=== PATIENT | male | born 1995 | race African-American/Black ===

== ENCOUNTER 2021-04-28 19:03 | Emergency (ER) | payer SELFPAY ==
[~2021-04-28] VITALS: Ht 185.4 cm; Wt 152.0 kg
[2021-04-29 03:02] VITALS: BP 134/108
== END 2021-04-29 04:59 | disposition home or self-care (01) ==
LOC: ER 19:10
DX: L03.012 Cellulitis of left finger (principal); E66.9 Obesity, unspecified; Z68.41 Body mass index [BMI] 40.0-44.9, adult; Z88.6 Allergy status to analgesic agent
CPT/HCPCS: 10060

== ENCOUNTER 2024-04-20 11:55 | Inpatient (IN) | payer OTHER, MEDICAID ==
[~2024-04-20] VITALS: Ht 185.4 cm; Wt 156.0 kg
--- NOTE | 2024-04-20 12:17 | ED.PDOC ---
History of Present Illness HPI Comments 28Y M presents to ED for chief complaint flu-like symptoms x1week. Pt is experiencing weakness, body aches, poor appetite, and congestion. Pt denies SOB, chest pain, fever, and cough. Pt was dx with Influenza last week and is currently taking abx. Pt tested negative for COVID last week. Upon ED arrival, pt is tachycardic with HR 114. Chief Complaint: Flu like Time Seen by MD: 12:03 Primary Care Provider: NONE Reviewed Notes: Medications, Allergies Allergies: Coded Allergies: Codeine (Verified Allergy, Unknown, 04/28/21) Information Source: Patient Mode of Arrival: Ambulatory Severity: Mild Timing: Weeks Duration: Since onset Past Medical History PAST MEDICAL HISTORY: Denies Surgical History: Denies all surgeries Family History Family History: Reviewed,noncontributory to illness Social History Smoker: Non-Smoker Alcohol: Denies ETOH Use Drugs: Denies Drug Use Lives In: Home Constitutional: reports: weakness, others (body aches); denies: chills, diaphoresis, fatigue, fever, malaise, sweats EENTM: reports: nose congestion; denies: blurred vision, double vision, ear bleeding, ear discharge, ear drainage, ear pain, ear ringing, eye pain, eye redness, hearing loss, mouth pain, mouth swelling, nasal discharge, nose bleeding, nose pain, photophobia, tearing, throat pain, throat swelling, voice changes, others Respiratory: denies: cough, hemoptysis, orthopnea, SOB at rest, shortness of breath, SOB with excertion, stridor, wheezing, others Cardiovascular: denies: chest pain, dizzy spells, diaphoresis, Dyspnea on exer tion, edema, irregular heart beat, left arm pain, lightheadedness, palpitations, PND, syncope, others Gastrointestinal: reports: poor appetite; denies: abdomen distended, abdominal pain, blood streaked bowels, constipated, diarrhea, dysphagia, difficulty swallowing, hematemesis, melena, nausea, poor fluid intake, rectal bleeding, rectal pain, vomiting, others Genitourinary: denies: burning, dysuria, flank pain, frequency, hematuria, incontinence, penile discharge, penile sore, pain, testicle pain, testicle swelling, urgency, others Neurological: denies: dizziness, fainting, headache, left sided numbness, left sided weakness, numbness, paresthesia, pre-existing deficit, right sided numbness, right sided weakness, seizure, speech problems, tingling, tremors, weakness, others Musculoskeletal: denies: back pain, gout, joint pain, joint swelling, muscle pain, muscle stiffness, neck pain, others Integumetry: denies: bruises, change in color, change in hair/nails, dryness, laceration, lesions, lumps, rash, wounds, others Allergic/Immunocompromised: denies: Difficulty Healing, Frequent Infections, Hives, Itching, others Hematologic/Lymphatic: denies: anemia, blood clots, easy bleeding, easy bruising, swollen glands, others Endocrine: denies: excessive hunger, excessive sweating, excessive thirst, excessive urination, flushing, intolerance to cold, intolerance to heat, unexplained weight gain, unexplained weight loss, others Psychiatric: denies: anxiety, bipolar disorder, depression, hopeless, panic disorder, schizophrenia, sleepless, suicidal, others All Other Systems: Reviewed and Negative Physical Exam General Appearance: Moderate Distress, Normal HEENT: Normal ENT Inspection, Pharynx Normal, TMs Normal Neck: Full Range of Motion, Non-Tender, Normal, Normal Inspection Respiratory: Chest Non-Tender, Lungs Clear, No Accessory Muscle Use, No Respiratory Distress, Normal Breath Sounds Cardiovascular: No Edema, No JVD, No Murmur, No Gallop, Normal Peripheral Pulses, Regular Rate/Rhythm Breast Exam: Deferred Gastrointestinal: No Organomegaly, Non Tender, No Pulsatile Mass, Normal Bowel Sounds, Soft Genitalia: Deferred Pelvic: Deferred Rectal: Deferred Extremities: No calf tenderness, Normal capillary refill, Normal inspection, Normal range of motion, Non-tender, No pedal edema Musculoskeletal : Apperance: Normal Neurologic: Alert, director content marketing II-XII nml as Tested, No Motor Deficits, Normal Affect, Normal Mood, No Sensory Deficits Cerebellar Function: Normal Reflexes: Normal Skin: Dry, Normal Color, Warm Peripheral Pulses: 3+ Radial (R), 3+ Radial (L) Lymphatic: No Adenopathy Was a procedure done? Was a procedure done?: No Differential Dx Considerations may include: Influenza, URI X-Ray, Labs, Meds, VS Vital Signs Date Time Temp Pulse Resp B/P (MAP) Pulse Ox O2 Delivery O2 Flow Rate FiO2 04/20/24 16:19 96 Room Air* 0 21 04/20/24 14:10 97.8 106 16 131/90 (104) 97 97.8 04/20/24 14:10 106 16 97 Room Air 04/20/24 12:10 97.4 114 20 122/91 (101) 100 Lab Test 04/20/24 14:02 04/20/24 13:20 Range/Units Influenza Type A Antigen Negative Negative Influenza Type B Antigen Negative Negative White Blood Count 15.3 H 4.4-10.8 10^3/uL Red Blood Count 6.46 H 4.5-5.90 10^6/uL Hemoglobin 18.6 H 13.5-17.5 g/dL Hematocrit 55.1 H 41.0-53.0 % Mean Corpuscular Volume 85.3 80.0-100.0 fL Mean Corpuscular Hemoglobin 28.8 28.0-32.0 pg Mean Corpuscular Hemoglobin Concent 33.8 32.0-36.0 g/dL Red Cell Distribution Width 13.3 11.8-14.3 % Platelet Count 317 140-450 10^3/uL Mean Platelet Volume 9.3 6.9-10.8 fL Neutrophils (%) (Auto) 84.6 H 37.0-80.0 % Lymphocytes (%) (Auto) 7.4 L 10.0-50.0 % Monocytes (%) (Auto) 7.7 0.0-12.0 % Eosinophils (%) (Auto) 0.1 0.0-7.0 % Basophils (%) (Auto) 0.2 0.0-2.0 % Neutrophils # (Auto) 12.9 H 1.6-8.6 10 ^3/uL Lymphocytes # (Auto) 1.1 0.4-5.4 10 ^3/uL Monocytes # (Auto) 1.2 0-1.3 10 ^3/uL Eosinophils # (Auto) 0 0-0.8 10 ^3/uL Basophils # (Auto) 0 0-0.2 10 ^3/uL Nucleated Red Blood Cells 0.0 % D-Dimer, Quantitative 2.12 H 0.0-0.49 mg/L FEU Sodium Level 132 L 136-145 mmol/L Potassium Level 4.4 3.5-5.1 mmol/L Chloride Level 97 L 98-107 mmol/L Carbon Dioxide Level 13 L 20-31 mmol/L Anion Gap 22 H 5-15 Blood Urea Nitrogen 45 H 9-23 mg/dL Creatinine 5.99 H 0.700-1.30 mg/dL Glomerular Filtration Rate Calc 12 >90 mL/min BUN/Creatinine Ratio 7.5 L 10.0-20.0 Serum Glucose 120 H 74-106 mg/dL Calcium Level 6.2 L 8.7-10.4 mg/dL Current Medications Medications (Trade) Dose Ordered Sig/Drew Route Start Time Stop Time Status Last Admin Acetaminophen/ Hydrocodone Bitart (Sage 5/325MG Tab) 1 tab ONCE ONCE PO 04/20/24 14:15 04/20/24 14:16 DC 04/20/24 14:16 Enoxaparin Sodium (Lovenox) 150 mg ONCE ONCE SC 04/20/24 14:30 04/20/24 14:31 DC 04/20/24 14:30 Sodium Chloride 1,000 ml @ 1,000 mls/hr Q1H ONCE IV 04/20/24 15:30 04/20/24 16:29 DC 04/20/24 15:33 Sodium Chloride 1,000 ml @ 1,000 mls/hr Q1H ONCE IV 04/20/24 16:00 04/20/24 16:59 DC 04/20/24 16:06 [place] [id number] Ph: [phone] DIAGNOSTIC IMAGING Diagnostic Imaging Report : [id number] Signed PATIENT: ALBERT BOOKER ACCT: [id number] UNIT: [id number] : 1995 LOC: ER ROOM / BED: / AGE / SEX: 28 / M ADM STATUS: REG ER SERVICE 1206 ORDERING PHYSICIAN: JACE BARAHONA MD PROCEDURE(s): CXRP - CHEST PORTABLE REASON: sob ORDER NUMBER(s): [id number], ACCESSION NUMBER(s): [id number] CHEST RADIOGRAPH Indication: sob Technique: Single frontal view of the chest was obtained COMPARISON: None FINDINGS: Lines and Tubes: None Lungs: Clear Pleura: No effusion. No pneumothorax. Cardiomediastinal contours: Unremarkable Bones: Unremarkable IMPRESSION: No acute disease. ATED BY: PRADEEP SIMPSON MD DICTATED DATE/TIME: 04/20/24 1226 SIGNED BY: PRADEEP SIMPSON MD SIGNED DATE/TIME: 04/20/24 1226 CC: Patient alert. Complaining of cough. Currently on antibiotics. Tachycardia. No leg swelling. Saturation pristine on room air. Reviewed his previous visit. Elevated D-dimer. Chest x-ray reviewed does not show any acute changes. Was given Lovenox. Explained to the patient. Time of 1ST Reevaluation: 12:33 Reevaluation 1ST: Unchanged Patient Education/Counseling: Diagnosis, Treatment Family Education/Counseling: No Family Present Departure 1 Departure Time of Disposition: 12:23 Impression: Primary Impression: COPD (chronic obstructive pulmonary disease) Qualified Codes: J44.9 - Chronic obstructive pulmonary disease, unspecified Additional Impressions: Obesity Qualified Codes: E66.9 - Obesity, unspecified Elevated d-dimer Acute tubular necrosis Disposition: ADMITTED INPATIENT Admit to: Med Surg Condition: Guarded Critical Care Note Critical Care Time?: Yes (90 min-critical care time only) Stability Stability form required: No Heart Score Heart Score: Heart Score Response (Comments) Value History N/A 0 EKG N/A 0 Age N/A 0 Risk Factors N/A 0 Troponin N/A 0 Total 0 I personally scribed for JACE BARAHONA MD ([email or web address]) on 04/20/24 at 12:17. Electronically submitted by Francesca Cosby ([email or web address]). I personally scribed for JACE BARAHONA MD ([email or web address]) on 04/20/24 at 14:01. Electronically submitted by Francesca Cosby ([email or web address]). JACE BARAHONA MD Apr 20, 2024 12:17
--- NOTE | 2024-04-20 12:30 | DVH ---
CHEST RADIOGRAPH Indication: sob Technique: Single frontal view of the chest was obtained COMPARISON: None FINDINGS: Lines and Tubes: None Lungs: Clear Pleura: No effusion. No pneumothorax. Cardiomediastinal contours: Unremarkable Bones: Unremarkable IMPRESSION: No acute disease.
[2024-04-20] MEDS: HYDROcodone-ACET 5/325MG TAB PO ONE (14:16)
[2024-04-20] MEDS: ENOXAPARIN SOD 150 MG/1 ML SYRINGE SC ONE (14:30)
[2024-04-20 14:59] LABS: Potassium 4.4 mmol/L (3.5-5.1)
[2024-04-20 15:00] LABS: Anion Gap 22 (5-15)
[2024-04-20 15:05] LABS: BUN/Creatinine Ratio 7.5 (10.0-20.0)
[2024-04-20 15:12] LABS: Blood Urea Nitrogen 45 mg/dL (9-23); Calcium 6.2 mg/dL (8.7-10.4); Carbon Dioxide 13 mmol/L (20-31); Chloride 97 mmol/L (98-107); Glucose 120 mg/dL (74-106); Sodium 132 mmol/L (136-145)
[2024-04-20 15:15] LABS: Basophils # (auto) 0 10 ^3/uL (0-0.2); Basophils % (auto) 0.2 % (0.0-2.0); Eosinophils # (auto) 0 10 ^3/uL (0-0.8); Eosinophils % (auto) 0.1 % (0.0-7.0); Lymphocytes # (auto) 1.1 10 ^3/uL (0.4-5.4); Neutrophils # (auto) 12.9 10 ^3/uL (1.6-8.6)
[2024-04-20 15:16] LABS: Hematocrit 55.1 % (41.0-53.0); Hemoglobin 18.6 g/dL (13.5-17.5); Lymphocytes % (auto) 7.4 % (10.0-50.0); Mean Corpuscular Hemoglobin 28.8 pg (28.0-32.0); Mean Corpuscular Hgb Conc. 33.8 g/dL (32.0-36.0); Mean Corpuscular Volume 85.3 fL (80.0-100.0); Monocytes # (auto) 1.2 10 ^3/uL (0-1.3); Monocytes % (auto) 7.7 % (0.0-12.0); Neutrophils % (auto) 84.6 % (37.0-80.0); Platelet Count (auto) 317 10^3/uL (140-450); Red Blood Cells 6.46 10^6/uL (4.5-5.90); Red Cell Distribution Width 13.3 % (11.8-14.3); White Blood Cell 15.3 10^3/uL (4.4-10.8)
[2024-04-20] MEDS: SODIUM CHLORIDE 0.9% 1,000 ML IV ONE ×2 (15:33→16:06)
[2024-04-20 16:14] LABS: Rapid Influenza A Negative (Negative); Rapid Influenza B Negative (Negative)
[2024-04-20 16:19] VITALS: O2SAT 96
[2024-04-20] MEDS: ONDANSETRON HCL 4 MG/2 ML VIAL IV ONE (17:35)
[2024-04-20] MEDS: MORPHINE SULFATE INJ 2 MG/ml SYRG IV ONE (17:36)
[2024-04-20] MEDS: SODIUM CHLORIDE 0.9% 1,000 ML IV SCH (18:24)
--- NOTE | 2024-04-20 18:30 | DVHHPRES ---
History of Present Illness Resident Creating Document: FLORIAN DIAZ RESIDENT Reason for Visit: Generalized weakness and fatigue History of Present Illness This is a 28-year-old obese male patient no relevant past medical history presented to the ER with a chief complaint of generalized wea kness, fatigue and body aches for the past 1 week. He reports feeling feverish, productive cough with yellow sputum, body aches and weakness for the past 1 week for which he visited urgent care and was diagnosed with a strep throat and influenza infection. Patient received antibiotics and was taking them for the past couple of days, thinks it was amoxicillin but does not remember for sure. He says that he has been getting weak progressively associated with low appetite and generalized muscle ache for the past couple of days. Also reports abdominal heaviness. He says that his fever productive cough has been resolved. Patient's son was also diagnosed with strep throat infection recently. Patient denies chest pain, shortness of breaths, recent falls or blurry vision, nausea or vomiting, dysuria constipation or diarrhea. Past Medical History Unremarkable Family History Mom at the age of 49 - had cancer, details unknown. Mother also had CHF.. 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 ALCOHOL: occassional (Drinks socially) Drugs: None Lives: with Family (His and kids) Review of Systems Constitutional: Yes: Weakness, Malaise Eyes: Conjunctivae inflammation Gastrointestinal: Abdominal Pain Allergies: Coded Allergies: Codeine (Verified Allergy, Unknown, 04/28/21) Medications Current Medications Medications Dose Ordered Sig/Drew Route Start Time Stop Time Status Last Admin Dose Admin Sodium Chloride 1,000 ml @ 125 mls/hr Q8H IV 04/20/24 18:15 04/20/24 18:24 125 MLS/HR Exam Vital Signs Vital Signs Date Time Temp Pulse Resp B/P (MAP) Pulse Ox O2 Delivery O2 Flow Rate FiO2 04/20/24 18:07 95 23 102/56 04/20/24 17:35 98 04/20/24 16:19 Room Air* 0 21 04/20/24 14:10 97.8 97.8 Exam Morbidly obese male patient lying in bed, in no acute distress General: Obese, afebrile, palor, mucosae are moist, sclera injection seen. Tongue has white scrape able lesions. Pharynx is erythematous Cardiovascular: Regular S1 and S2. No murmurs, gallops or rubs. No JVD elevation. 1+ pitting edema in the lower extremities Respiratory: Normal B/L air entry on room air. Clear lung sounds on auscultation Abdomen: Soft, nontender, nondistended, normoactive bowel sounds, no rebound tenderness, no organomegaly, no masses Genitourinary: Deferred MSK/skin: Mobilizes 4 limbs. Skin is dry and warm Neurological: No motor, no sensitive deficits, normal speech. Pupils are isocoric and reactive. Psych/Mental Status: A/Ox4 Psych/Mental Status: Mental status NL, Mood NL Labs/Xrays Labs Test 04/20/24 18:11 04/20/24 14:02 04/20/24 13:20 Range/Units Influenza Type A Antigen Negative Negative Influenza Type B Antigen Negative Negative White Blood Count 15.3 H 4.4-10.8 10^3/uL Red Blood Count 6.46 H 4.5-5.90 10^6/uL Hemoglobin 18.6 H 13.5-17.5 g/dL Hematocrit 55.1 H 41.0-53.0 % Mean Corpuscular Volume 85.3 80.0-100.0 fL Mean Corpuscular Hemoglobin 28.8 28.0-32.0 pg Mean Corpuscular Hemoglobin Concent 33.8 32.0-36.0 g/dL Red Cell Distribution Width 13.3 11.8-14.3 % Platelet Count 317 140-450 10^3/uL Mean Platelet Volume 9.3 6.9-10.8 fL Neutrophils (%) (Auto) 84.6 H 37.0-80.0 % Lymphocytes (%) (Auto) 7.4 L 10.0-50.0 % Monocytes (%) (Auto) 7.7 0.0-12.0 % Eosinophils (%) (Auto) 0.1 0.0-7.0 % Basophils (%) (Auto) 0.2 0.0-2.0 % Neutrophils # (Auto) 12.9 H 1.6-8.6 10 ^3/uL Lymphocytes # (Auto) 1.1 0.4-5.4 10 ^3/uL Monocytes # (Auto) 1.2 0-1.3 10 ^3/uL Eosinophils # (Auto) 0 0-0.8 10 ^3/uL Basophils # (Auto) 0 0-0.2 10 ^3/uL Nucleated Red Blood Cells 0.0 % D-Dimer, Quantitative 2.12 H 0.0-0.49 mg/L FEU Assessment/Plan Assessment/Plan SIRS secondary to strep throat and influenza infection WBC elevated at 15 with neutrophilic predominance Pending blood culture, lactic acid, throat culture Pending COVID testing Started IV ceftriaxone and IV doxy 04/20 Started acetaminophen q.4 p.r.n. Prolonged QTc Avoid QTc prolonging agents HORACE, likely secondary to VMN IV NS 125 cc/hour Urine protein, creatinine pending Nephrology consulted Rule out PE/DVT V/Q scan and lower extremity Doppler 1 dose of Lovenox 150 mg sc administered by the ER Hyponatremia Serum Osmolality pending IV NS 125 cc/hour Hypocalcemia Serum albumin pending Plan discussed with patient in which all questions have been answered Goals of care have been discussed with the patient for more than 20 minutes, full code status Case discussed with Dr. Haas. Plan discussed with: Patient My Orders Orders - FLORIAN DIAZ RESIDENT Procedure Category Date Status Time PTPTT LAB 04/20/24 Logged 17:58 Hepatic Panel LAB 04/20/24 In Process 17:58 Magnesium LAB 04/20/24 In Process 17:58 Thyroid Stimulating LAB 04/20/24 In Process Hormone 17:58 Drug Screen LAB 04/20/24 Logged 17:58 Covid19 Antigen Dalila LAB 04/20/24 Logged Bilat Lower Dvt US 04/20/24 Logged 17:58 Sodium Chloride 0.9% PHA 04/20/24 In Process 18:15 Urinalysis LAB 04/20/24 Logged 18:03 Electrocardigram EKG 04/20/24 Logged 18:03 Troponin-I Hs LAB 04/20/24 In Process 18:03 B-Type Natriuretic LAB 04/20/24 In Process Peptide 18:03 Admit ADMIT 04/20/24 Transmitted 18:26 Sports Book Board Attendant For ALHAJI 04/20/24 Transmitted 24 Hours 18:26 Full Code ALHAJI 04/20/24 Transmitted 18:26 Code Status CODE 04/20/24 Verified 18:26 Clear Liq Diet DIET 04/20/24 Verified Dinner Tylenol 500mg PHA 04/20/24 Verified 18:30 [place] 5/325mg PHA 04/20/24 Verified 18:30 Morphine 1mg PHA 04/20/24 Verified 18:30 Date of Service: Apr 20, 2024 Billing Provider: SARAH HAAS MD Common Visit Codes: [id number] INP/OBS CARE (HIGH) JOERICKEYFLORIAN RESIDENT Apr 20, 2024 18:29 SARAH HAAS MD Apr 21, 2024 11:32
[2024-04-20 18:39] LABS: Chloride 99 mmol/L (98-107)
[2024-04-20 18:40] LABS: Anion Gap 18 (5-15)
--- NOTE | 2024-04-20 18:40 | ECG ---
[facility] Test Date: 2024-04-20 Test Time: 18:39:17 Pat Name: ALBERT BOOKER Department: ER Room: 0240T Gender: M [employer]: LUKE : 1995 Requested By: FLORIAN DIAZ Order Number: [id number] Reading MD: Gray Hare Measurements Intervals [place] Rate: 92 P: 36 [place]: 164 QRS: 14 QRSD: 106 T: 35 QT: 421 QTc: 521 Interpretive Statements Sinus rhythm Prolonged QT interval Electronically Signed On 04-21-2024 14:20:14 PST by Gray Hare Please click the below link to view image of tracing.
[2024-04-20 18:49] LABS: Albumin 4.6 g/dL (3.2-4.8); Bilirubin, Direct 0.2 mg/dL (<0.3); Bilirubin, Total 0.3 mg/dL (0.2-1.0); Total Protein 7.3 g/dL (5.7-8.2)
[2024-04-20 18:54] LABS: Blood Urea Nitrogen 48 mg/dL (9-23); Carbon Dioxide 15 mmol/L (20-31); Glucose 109 mg/dL (74-106); Sodium 132 mmol/L (136-145)
[2024-04-20 19:05] LABS: Magnesium 2.9 mg/dL (1.6-2.6)
[2024-04-20 19:13] LABS: COVID19 ANTIGEN SOFIA FIA NEGATIVE (NEGATIVE)
[2024-04-20 19:14] LABS: INR 1.04 (0.9-1.15); Partial Thromboplastin Time 27.8 SEC (24.5-34.5)
[2024-04-20] MEDS ORDERED: AZITHROMYCIN 500MG/ 250ML 250 ML IV SCH (19:15)
[2024-04-20 19:16] LABS: Calcium 5.8 mg/dL (8.7-10.4)
--- NOTE | 2024-04-20 19:19 | DVH ---
Procedure: US BiLat Lower DVT Study Date and Requested Time: 04/20/2024 06:44 PM History: dvt Comparison: None Technique: Multiple high resolution stoddard-scale images with and without compression obtained of the bi lateral lower extremity veins, including the common femoral vein, deep femoral vein, proximal mid and distal superficial femoral vein, and popliteal vein. Additional limited images of the greater saphen ous vein also obtained. Augmentation performed as indicated. Color and spectral doppler flow images o btained as indicated. Findings: No visible intraluminal venous thrombus. No evidence of incompressibility or abnormal color or spectr al Doppler flow visualized in the bilateral lower extremity veins including, the common femoral vein, deep femoral vein, proximal mid and distal superficial femoral vein, and popliteal vein. Greater sap henous vein grossly unremarkable. Impression: No sonographic evidence of bilateral lower extremity deep venous thrombosis.
[2024-04-20 19:45] VITALS: PULSE 90; RESP 90; O2SAT 94
[2024-04-20] MEDS: DOXYCYCLINE 100MG/250ML 250 ML IV SCH (20:00)
[2024-04-20] MEDS: MORPHINE SULFATE INJ 2 MG/ml SYRG IV PRN (20:45)
[2024-04-20 22:24] LABS: Rapid Strep A Screen-Throat Positive
[2024-04-21] VITALS (13 sets, daily range): BP systolic 120–147; BP diastolic 59–89; PULSE 81–96; RESP 16–20; TEMP 97.4–98.6; O2SAT 93–98
[2024-04-21] MEDS: HYDROcodone-ACET 5/325MG TAB PO PRN (04:10)
[2024-04-21 06:25] LABS: Basophils # (auto) 0 10 ^3/uL (0-0.2); Basophils % (auto) 0.2 % (0.0-2.0); Eosinophils # (auto) 0 10 ^3/uL (0-0.8); Eosinophils % (auto) 0.1 % (0.0-7.0); Hematocrit 49.3 % (41.0-53.0); Hemoglobin 16.8 g/dL (13.5-17.5); Lymphocytes # (auto) 0.9 10 ^3/uL (0.4-5.4); Mean Corpuscular Hemoglobin 29.1 pg (28.0-32.0); Mean Corpuscular Volume 85.7 fL (80.0-100.0); Monocytes # (auto) 1.6 10 ^3/uL (0-1.3); Monocytes % (auto) 9.3 % (0.0-12.0); Neutrophils # (auto) 15.1 10 ^3/uL (1.6-8.6); Neutrophils % (auto) 85.4 % (37.0-80.0); Platelet Count (auto) 282 10^3/uL (140-450); Red Blood Cells 5.76 10^6/uL (4.5-5.90); Red Cell Distribution Width 13.5 % (11.8-14.3); White Blood Cell 17.6 10^3/uL (4.4-10.8)
[2024-04-21 06:35] LABS: Anion Gap 19 (5-15)
[2024-04-21 06:41] LABS: BUN/Creatinine Ratio 8.4 (10.0-20.0); Glucose 103 mg/dL (74-106)
[2024-04-21 06:50] LABS: Blood Urea Nitrogen 61 mg/dL (9-23); Carbon Dioxide 15 mmol/L (20-31); Chloride 96 mmol/L (98-107); Sodium 130 mmol/L (136-145)
[2024-04-21 06:55] LABS: Calcium 5.5 mg/dL (8.7-10.4); Potassium 5.6 mmol/L (3.5-5.1)
[2024-04-21] MEDS ORDERED: ALBUTEROL SULF 2.5 MG/0.5ML(0.5%) NEB SOLN NEB ONE (08:30)
[2024-04-21] MEDS: cefTRIAXone 1GM/50ML D5W 50 ML IV SCH (08:31)
[2024-04-21] MEDS: ALBUTEROL SULF 2.5 MG/0.5ML(0.5%) NEB SOLN NEB ONE (09:10)
[2024-04-21] MEDS: InsuLIN REG 1unit/0.01ml Soln (100units/ml) IV ONE (09:29)
[2024-04-21] MEDS: SODIUM ZIRCONIUM CYCL 10 GM PAK PO ONE (09:30)
[2024-04-21] MEDS: DEXTROSE (50%) 50ML SYRG IV ONE (09:35)
[2024-04-21] MEDS: CALCIUM GLUC 1,000mg/50ml-NS 50 ML IV SCH (09:50)
--- NOTE | 2024-04-21 09:59 | DVHINCON2 ---
Date of service: Apr 21, [address] Hill Reason for Consultation Acute kidney injury History of Present Illness Patient is a 28-year-old morbidly obese male with no significant past medical history is admitted for generalized weakness poor appetite and flu-like symptoms with sore throat for two weeks. On admission patient found to have elevated BUN creatinine nephrology is consulted Past Medical History Patient denies Past Surgical History Patient denies Allergies: Coded Allergies: Codeine (Verified Allergy, Unknown, 04/28/21) Home Meds No Active Prescriptions or Reported Meds Current Medications Current Medications Medications (Trade) Dose Ordered Sig/Drew Route PRN Reason Start Time Stop Time Status Last Admin Sodium Chloride 1,000 ml @ 125 mls/hr Q8H IV 04/20/24 18:15 04/21/24 09:54 DC 04/20/24 18:24 Acetaminophen (Tylenol Tablet Or Capsule) 500 mg Q4HPRN PRN PO MILD PAIN (1-3 PAIN SCALE) 04/20/24 18:30 Acetaminophen/ Hydrocodone Bitart ([place] 5/325MG Tab) 1 tab Q6HPRN PRN PO MODERATE PAIN (4-6 PAIN SCALE) 04/20/24 18:30 04/21/24 04:10 Morphine Sulfate 1 mg Q4HPRN PRN IV SEVERE PAIN (7-10 PAIN SCALE) 04/20/24 18:30 04/21/24 01:09 Ceftriaxone Sodium 50 ml @ 100 mls/hr DAILY@09 IV 04/21/24 09:00 04/21/24 08:31 Azithromycin 250 ml @ 125 mls/hr DAILY IV 04/20/24 19:15 04/20/24 19:29 DC Doxycycline Hyclate 250 ml @ 125 mls/hr Q12H IV 04/20/24 19:30 04/21/24 07:03 Calcium Gluconate/ Sodium Chloride 50 ml @ 100 mls/hr Q30M IV 04/21/24 08:15 04/21/24 09:14 DC 04/21/24 10:44 Sodium Bicarbonate 50 ml/ Sodium Chloride 1,050 ml @ 150 mls/hr Q7H IV 04/21/24 10:00 Calcium Acetate (Phoslo Capsule) 2,001 mg TIDWMEALS PO 04/21/24 12:00 Review of Systems All 12 item review of systems reviewed with the patient nonsignificant except what is mentioned in the history of present illness H&P Exam Vital Signs/I&O Vital Sign Date Time Temp Pulse Resp B/P (MAP) Pulse Ox O2 Delivery O2 Flow Rate FiO2 04/21/24 09:25 86 16 97 04/21/24 09:10 Room Air* 0 21 04/21/24 09:00 98.2 143/59 (87) 98.2 Intake and Output 04/20/24 04/21/24 19:00 07:00 Intake Total 2000 ml 1250 ml Balance 2000 ml 1250 ml Intake Oral 0 ml IV Total 2000 ml 1250 ml Physical Exam Obese male lying comfortably in bed appeared in no acute distress Lungs clear to auscultation bilaterally Cardiac exam regular rate and rhythm GI soft nontender was normal Extremities no clubbing cyanosis or edema Neuro nonfocal Labs/Diagnostic Data Labs/Diagnostic Data Laboratory Tests Test 04/21/24 09:35 04/21/24 05:56 04/20/24 22:00 04/20/24 20:18 Range/Units Urine Color Yellow Yellow Urine Clarity Turbid H Clear Urine pH 5.5 5.0-9.0 Urine Specific Marshall 1.022 1.001-1.035 Urine Protein 2+ H Negative Urine Ketones Negative Negative Urine Blood 3+ H Negative /uL Urine Nitrite Negative Negative Urine Bilirubin Negative Negative Urine Urobilinogen Normal Negative mg/dL Urine Leukocyte Esterase Trace Negative /uL Urine RBC 2 0 - 3 /hpf Urine WBC 56 0 - 3 /hpf Urine Squamous Epithelial Cells Few <5 /hpf Urine Bacteria Few H None Seen /hpf Urine Sodium 39 L 40-220 mmol/L Urine Glucose 1+ H Normal mg/dL Urine Opiates Screen Neg NEGATIVE Urine Fentanyl Screen Neg NEGATIVE Urine Barbiturates Screen Neg NEGATIVE Urine Phencyclidine Screen Neg NEGATIVE Urine Amphetamines Screen Neg NEGATIVE Urine Benzodiazepines Screen Neg NEGATIVE Urine Cocaine Screen Neg NEGATIVE Urine Cannabinoids Screen Neg NEGATIVE White Blood Count 17.6 H 4.4-10.8 10^3/uL Red Blood Count 5.76 4.5-5.90 10^6/uL Hemoglobin 16.8 13.5-17.5 g/dL Hematocrit 49.3 # 41.0-53.0 % Mean Corpuscular Volume 85.7 80.0-100.0 fL Mean Corpuscular Hemoglobin 29.1 28.0-32.0 pg Mean Corpuscular Hemoglobin Concent 34.0 32.0-36.0 g/dL Red Cell Distribution Width 13.5 11.8-14.3 % Platelet Count 282 140-450 10^3/uL Mean Platelet Volume 9.1 6.9-10.8 fL Neutrophils (%) (Auto) 85.4 H 37.0-80.0 % Lymphocytes (%) (Auto) 5.0 L 10.0-50.0 % Monocytes (%) (Auto) 9.3 0.0-12.0 % Eosinophils (%) (Auto) 0.1 0.0-7.0 % Basophils (%) (Auto) 0.2 0.0-2.0 % Neutrophils # (Auto) 15.1 H 1.6-8.6 10 ^3/uL Lymphocytes # (Auto) 0.9 0.4-5.4 10 ^3/uL Monocytes # (Auto) 1.6 H 0-1.3 10 ^3/uL Eosinophils # (Auto) 0 0-0.8 10 ^3/uL Basophils # (Auto) 0 0-0.2 10 ^3/uL Nucleated Red Blood Cells 0.0 % Sodium Level 130 L 136-145 mmol/L Potassium Level 5.6 *H 3.5-5.1 mmol/L Chloride Level 96 L 98-107 mmol/L Carbon Dioxide Level 15 L 20-31 mmol/L Anion Gap 19 H 5-15 Blood Urea Nitrogen 61 #H 9-23 mg/dL Creatinine 7.26 H 0.700-1.30 mg/dL Glomerular Filtration Rate Calc 10 >90 mL/min BUN/Creatinine Ratio 8.4 L 10.0-20.0 Serum Glucose 103 74-106 mg/dL Calcium Level 5.5 *L 8.7-10.4 mg/dL Phosphorus Level 14.8 H 2.4-5.1 mg/dL Magnesium Level 2.8 H 1.6-2.6 mg/dL Group A Streptococcus Rapid Positive Serum Osmolality 295 278-298 mOsm/kg Acetaminophen Level < 2.0 L 10.0-20.0 UG/ML Plasma/Serum Blood Alcohol 3.4 <10 mg/dL Test 04/20/24 19:10 04/20/24 18:33 04/20/24 18:32 04/20/24 18:11 Range/Units Hemoglobin A1c 5.7 <5.7 % A1C Prothrombin Time 11.0 9.3-11.8 sec Prothrombin Time INR 1.04 0.9-1.15 Activated Partial Thromboplast Time 27.8 24.5-34.5 SEC SARS-CoV-2 Antigen (Rapid) Negative NEGATIVE Sodium Level 132 L 136-145 mmol/L Potassium Level 5.0 3.5-5.1 mmol/L Chloride Level 99 98-107 mmol/L Carbon Dioxide Level 15 L 20-31 mmol/L Anion Gap 18 H 5-15 Blood Urea Nitrogen 48 H 9-23 mg/dL Creatinine 5.98 H 0.700-1.30 mg/dL Glomerular Filtration Rate Calc 12 >90 mL/min BUN/Creatinine Ratio 8.0 L 10.0-20.0 Serum Glucose 109 H 74-106 mg/dL Lactic Acid Level 1.6 0.4-2.0 mmol/L Calcium Level 5.8 *L 8.7-10.4 mg/dL Magnesium Level 2.9 H 1.6-2.6 mg/dL Total Bilirubin 0.3 0.2-1.0 mg/dL Direct Bilirubin 0.2 <0.3 mg/dL Aspartate Amino Transferase (AST) 3536 H 13-40 U/L Alanine Aminotransferase (ALT) 730 H 7-40 U/L Alkaline Phosphatase 69 46-116 U/L Troponin I High Sensitivity 28 </=54 ng/L Total Protein 7.3 5.7-8.2 g/dL Albumin 4.6 3.2-4.8 g/dL Thyroid Stimulating Hormone (TSH) 1.19 0.55-4.78 uIU/mL Test 04/20/24 14:02 04/20/24 13:20 Range/Units Influenza Type A Antigen Negative Negative Influenza Type B Antigen Negative Negative White Blood Count 15.3 H 4.4-10.8 10^3/uL Red Blood Count 6.46 H 4.5-5.90 10^6/uL Hemoglobin 18.6 H 13.5-17.5 g/dL Hematocrit 55.1 H 41.0-53.0 % Mean Corpuscular Volume 85.3 80.0-100.0 fL Mean Corpuscular Hemoglobin 28.8 28.0-32.0 pg Mean Corpuscular Hemoglobin Concent 33.8 32.0-36.0 g/dL Red Cell Distribution Width 13.3 11.8-14.3 % Platelet Count 317 140-450 10^3/uL Mean Platelet Volume 9.3 6.9-10.8 fL Neutrophils (%) (Auto) 84.6 H 37.0-80.0 % Lymphocytes (%) (Auto) 7.4 L 10.0-50.0 % Monocytes (%) (Auto) 7.7 0.0-12.0 % Eosinophils (%) (Auto) 0.1 0.0-7.0 % Basophils (%) (Auto) 0.2 0.0-2.0 % Neutrophils # (Auto) 12.9 H 1.6-8.6 10 ^3/uL Lymphocytes # (Auto) 1.1 0.4-5.4 10 ^3/uL Monocytes # (Auto) 1.2 0-1.3 10 ^3/uL Eosinophils # (Auto) 0 0-0.8 10 ^3/uL Basophils # (Auto) 0 0-0.2 10 ^3/uL Nucleated Red Blood Cells 0.0 % D-Dimer, Quantitative 2.12 H 0.0-0.49 mg/L FEU Sodium Level 132 L 136-145 mmol/L Potassium Level 4.4 3.5-5.1 mmol/L Chloride Level 97 L 98-107 mmol/L Carbon Dioxide Level 13 L 20-31 mmol/L Anion Gap 22 H 5-15 Blood Urea Nitrogen 45 H 9-23 mg/dL Creatinine 5.99 H 0.700-1.30 mg/dL Glomerular Filtration Rate Calc 12 >90 mL/min BUN/Creatinine Ratio 7.5 L 10.0-20.0 Serum Glucose 120 H 74-106 mg/dL Calcium Level 6.2 L 8.7-10.4 mg/dL B-Type Natriuretic Peptide 0.44 0-100 pg/mL Assessment Acute kidney injury likely secondary to postinfectious GN Strep pharyngitis Hyperkalemia Metabolic acidosis Hypocalcemia Recommendations Closely monitor fluid and electrolytes Avoid nephrotoxic medications Strict I&Os Check urinalysis urine electrolytes and urine protein excretion Check kidney ultrasound Check serologies for strep,C3-C4 hep B hep C and RPR Radiology consult for Kidney biopsy Check phosphorus, 25 hydroxyvitamin D and PTH IV fluids with a bicarb Start calcium acetate 2001 mg p.o. TIDWM Renal diet Medical treatment for hyperkalemia Follow-up in my office two weeks after the kidney biopsy for result We will continue to follow Patient seen and examined by mysel. I discussed my plan of care with the patient, , father and primary nurse at the bedside I would like to thank Dr. Hill for the consult, will follow up Plan discussed with: Patient CHRIS JACOBSEN MD Apr 21, 2024 09:59
[2024-04-21 10:07] LABS: Hepatitis B Core Total AB Negative (Negative)
--- NOTE | 2024-04-21 10:38 | DVH ---
RENAL ULTRASOUND CLINICAL HISTORY: gabriela TECHNIQUE: Multiple ultrasound images of the kidneys and bladder were obtained. COMPARISON: None FINDINGS: The right kidney measures 13.5 cm in length. The left kidney measures 12 cm. The kidneys demonstrate appropriate echotexture without evidence of a discrete renal lesion, nephrolithiasis or hydronephrosi s. Bladder appears within normal limits with volume measuring 234 cc. IMPRESSION: 1. Unremarkable renal ultrasound. HS:Y
[2024-04-21 10:44] LABS: Sodium Urine 39 mmol/L (40-220)
[2024-04-21 10:47] LABS: Magnesium 2.8 mg/dL (1.6-2.6)
[2024-04-21 10:51] LABS: Opiate Scree,Urine Neg (NEGATIVE); Urine Bacteria FEW /hpf (None Seen); Urine Blood 3+ /uL (Negative); Urine Clarity Turbid (Clear); Urine Protein, UAD 2+ (Negative); Urine Specific Gravity 1.022 (1.001-1.035); Urine Squamous Epithelial Cell FEW /hpf (<5); Urine Urobilinogen Normal (Negative); Urine WBC 56 /hpf (0 - 3); Urine pH 5.5 (5.0-9.0)
[2024-04-21 10:52] LABS: Amphetamine Screen, Urine Neg (NEGATIVE); Barbiturate Scree,Urine Neg (NEGATIVE); Benzodiazephine Screen, Urine Neg (NEGATIVE); Cannabinoid Screen, Urine Neg (NEGATIVE); Cocaine Screen, Urine Neg (NEGATIVE); Phencyclidine Screen, Urine Neg (NEGATIVE)
[2024-04-21 10:54] LABS: Urine Color Yellow (Yellow)
[2024-04-21] MEDS ORDERED: SODIUM BICARB 50mEq/50ml Vial 50 ML in SOD CHL 0.45% 1,000 ML IV SCH (11:00)
[2024-04-21 11:08] LABS: Creatinine, Urine 318.19 mg/dL (30.0-125.0); Protein, Urine 844.9 mg/dL (1-14)
[2024-04-21 11:23] LABS: Hepatitis B Surface Antigen Negative (Negative); Hepatitis C Antibody Negative (Negative)
[2024-04-21] MEDS: SODIUM BICARB 50mEq/50ml Vial 50 ML in SOD CHL 0.45% 1,000 ML IV SCH (11:30)
[2024-04-21 11:32] LABS: Potassium 4.8 mmol/L (3.5-5.1)
[2024-04-21 11:43] LABS: Calcium 5.7 mg/dL (8.7-10.4)
[2024-04-21 12:10] LABS: Hepatitis A Ab IgM Negative; Hepatitis A Total Antibody Positive (Negative); Hepatitis B Core IgM Negative (Negative); Hepatitis B Surface Antibody Positive (Negative)
[2024-04-21 12:11] LABS: Hepatitis B Surface Antigen Negative (Negative); Hepatitis C Antibody Negative (Negative)
[2024-04-21] MEDS: CALCIUM ACETATE 667 MG CAP PO SCH (12:37)
[2024-04-21 13:41] LABS: Potassium 5.1 mmol/L (3.5-5.1)
[2024-04-21 13:43] LABS: Calcium 5.3 mg/dL (8.7-10.4)
[2024-04-21 13:48] LABS: Creatine Kinase IFCC > 7800 U/L (46-171)
--- NOTE | 2024-04-21 15:12 | DVH ---
NUCLEAR MEDICINE VENTILATION/PERFUSION LUNG SCAN. INDICATION: POSSIBLE PE COMPARISON: None TECHNIQUE: Following intravenous demonstration of 6.2 millicuries of technetium 99m MAA, and inhala tion of 4 mCi of Xe 133 scintigrams were obtained in multiple projections of the lungs. FINDINGS: There is normal uptake of radionuclide on both the ventilation and perfusion portions of the examinat ion. No mismatched perfusion defects are demonstrated. Uptake is normally homogeneous. IMPRESSION: Low probability for PE.
[2024-04-21] MEDS: ONDANSETRON HCL 4 MG/2 ML VIAL IV PRN (15:21)
[2024-04-21 16:05] LABS: Rapid Strep A Screen-Throat Positive
[2024-04-21 17:44] LABS: Potassium 5.3 mmol/L (3.5-5.1)
[2024-04-21 17:46] LABS: Calcium 5.6 mg/dL (8.7-10.4)
--- NOTE | 2024-04-21 19:30 | DVHPNRES ---
Progress Note Date Seen: Apr 21, 2024 Resident Creating Document: FLORIAN DIAZ RESIDENT Medical Necessity Reason Pt with a Central, PICC or Fol: Yes The following are medically ne: Lopez Catheter Reason for lopez catheter: Strict I&O Subjective Review of Systems This is a 28-year-old obese male patient no relevant past medical history presented to the ER with a chief complaint of generalized weakness, fatigue and body aches for the past 1 week. He reports feeling feverish, productive cough with yellow sputum, body aches and weakness for the past 1 week for which he visited urgent care and was diagnosed with a strep throat and influenza infection. Patient received antibiotics and was taking them for the past couple of days, thinks it was amoxicillin but does not remember for sure. He says that he has been getting weak progressively associated with low appetite and generalized muscle ache for the past couple of days. Also reports abdominal heaviness. He says that his fever productive cough has been resolved. Patient's son was also diagnosed with strep throat infection recently. Patient denies chest pain, shortness of breaths, recent falls or blurry vision, nausea or vomiting, dysuria constipation or diarrhea. Past medical history: Unremarkable Family history:Mom at the age of 49 - had cancer, details unknown. Mother also had CHF.. Social history: Lives with and son, uses cigar occasionally, denies smoking. Drinks socially. 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 Patient seen and examined at the bedside. Reports no shortness of breath, chest pain or palpitations. Telemetry reviewed, shows intermittent tachycardia which is sinus and rate is up to 150s to 170s beats per minute. 2 g IV calcium administered given the hyperkalemia with EKG changes of peaked T-waves. Nephrology consulted Objective vital signs Vital Sign Date Time Temp Pulse Resp B/P (MAP) Pulse Ox O2 Delivery O2 Flow Rate FiO2 04/21/24 17:00 98.6 91 20 129/78 (95) 98 98.6 04/21/24 09:10 Room Air* 0 21 Total Intake and Output 04/20/24 04/20/24 04/21/24 15:00 23:00 07:00 Intake Total 2750 ml 500 ml Balance 2750 ml 500 ml medications Current Medications Medications Dose Ordered Sig/Drew Route Start Time Stop Time Status Last Admin Dose Admin Acetaminophen 500 mg Q4HPRN PRN PO 04/20/24 18:30 Acetaminophen/ Hydrocodone Bitart 1 tab Q6HPRN PRN PO 04/20/24 18:30 04/21/24 13:57 1 TAB Morphine Sulfate 1 mg Q4HPRN PRN IV 04/20/24 18:30 04/21/24 01:09 1 MG Ceftriaxone Sodium 50 ml @ 100 mls/hr DAILY@09 IV 04/21/24 09:00 04/21/24 08:31 100 MLS/HR Doxycycline Hyclate 250 ml @ 125 mls/hr Q12H IV 04/20/24 19:30 04/21/24 07:03 125 MLS/HR Sodium Bicarbonate 50 ml/ Sodium Chloride 1,050 ml @ 150 mls/hr Q7H IV 04/21/24 10:00 Calcium Acetate 2,001 mg TIDWMEALS PO 04/21/24 12:00 04/21/24 12:37 2,001 MG Ondansetron HCl 4 mg Q4HPRN PRN IV 04/21/24 14:15 04/21/24 15:21 4 MG Examination Morbidly obese male patient lying in bed, in no acute distress General: Obese, afebrile, palor, mucosae are moist, sclera injection seen. T ongue has white scrape able lesions. Pharynx is erythematous Cardiovascular: Regular S1 and S2. No murmurs, gallops or rubs. No JVD elevation. 1+ pitting edema in the lower extremities Respiratory: Normal B/L air entry on room air. Clear lung sounds on auscultation Abdomen: Soft, nontender, nondistended, normoactive bowel sounds, no rebound tenderness, no organomegaly, no masses Genitourinary: Deferred MSK/skin: Mobilizes 4 limbs. Skin is dry and warm Neurological: No motor, no sensitive deficits, normal speech. Pupils are isocoric and reactive. Psych/Mental Status: A/Ox4 laboratory and microbiology Laboratory Tests 04/21/24 17:09 04/21/24 05:56 Test 04/21/24 05:56 Range/Units Serum Glucose 103 74-106 mg/dL Labs and/or images reviewed: Labs reviewed by me, Image(s) reviewed by me Problem List/Assessment/Plan Problem List/Assessment/Plan SIRS secondary to strep throat and influenza infection Strep pharyngitis WBC elevated at 15 with neutrophilic predominance Pending blood culture, lactic acid, throat culture Positive rapid strep throat Started IV ceftriaxone and IV doxy 04/20 Started acetaminophen q.4 p.r.n. WBC trending up to 17 Prolonged QTc secondary to hypocalcemia Avoid QTc prolonging agents Anion gap Metabolic acidosis HORACE, likely secondary to rhabdomyolysis versus PSGN Secondary hyper parathyroidism Vitamin-D deficiency Symptomatic Hypocalcemia and hyperphosphatemia Hyponatremia Elevated AST/ALT due to rhabdomyolysis IV NS 125 cc/hour Urine protein, creatinine pending Nephrology consulted - RENAL BIOPSY 04/22. NPO STARTING MIDNIGHT. Started calcium acetate 2001 mg PO TID CK greater than 7800 Renal ultrasound unremarkable C3, C4, RPR pending Hepatitis-B and C negative Urine protein/creatinine ratio 2.5 Sodium bicarbonate 150 mL/hour UA shows 3+ blood and only 2 RBCs Generalized weakness due to Hyperkalemia with EKG changes 2 g IV calcium administered 04/21 along with insulin, dextrose, Lokelma Potassium improved to 4.8 Rule out PE/DVT V/Q scan shows low probability for PE Lower extremity Doppler is negative 1 dose of Lovenox 150 mg sc administered by the ER morbid obesity Diet renal Plan discussed with patient in which all questions have been answered Goals of care have been discussed with the patient for more than 20 minutes, full code status critical care time 41 mins Case discussed with Dr. Fuller renal biopsy tomorrow. NPO starting midnight. Plan discussed with: Patient, Spouse (At the bedside) My Orders My Orders Orders - FLORIAN DIAZ Procedure Category Date Status Time Doxycycline PHA 04/20/24 In Process 100mg/250ml 19:30 Strict I & O ALHAJI 04/21/24 In Process 08:35 Communication Order ORDERS 04/21/24 Transmitted 08:35 Ondansetron Hcl PHA 04/21/24 In Process (Zofran) 14:15 Date of Service: Apr 21, 2024 Billing Provider: GEM FULLER MD Common Visit Codes: 75808-[facility] C[facility] 30-74 MIN FLORIAN DIAZ Apr 21, 2024 19:30 GEM FULLER MD Apr 22, 2024 15:00
[2024-04-21] MEDS: ERGOCALCIFEROL 50,000 UNIT(1.25MG) CAP PO SCH (20:58)
[2024-04-22] VITALS (21 sets, daily range): BP systolic 104–155; BP diastolic 54–89; PULSE 77–107; RESP 16–27; TEMP 97.1–98.9; O2SAT 91–98
[2024-04-22] MEDS: SODIUM BICARB 8.4% 50Meq/50ml SYR Vial IV ONE ×2 (00:46→22:21)
[2024-04-22 06:42] LABS: Basophils # (auto) 0 10 ^3/uL (0-0.2); Basophils % (auto) 0.2 % (0.0-2.0); Eosinophils # (auto) 0 10 ^3/uL (0-0.8); Eosinophils % (auto) 0.1 % (0.0-7.0); Hematocrit 49.4 % (41.0-53.0); Hemoglobin 16.9 g/dL (13.5-17.5); Lymphocytes # (auto) 0.8 10 ^3/uL (0.4-5.4); Lymphocytes % (auto) 4.7 % (10.0-50.0); Mean Corpuscular Hemoglobin 29.3 pg (28.0-32.0); Mean Corpuscular Hgb Conc. 34.1 g/dL (32.0-36.0); Monocytes # (auto) 1.4 10 ^3/uL (0-1.3); Monocytes % (auto) 8.5 % (0.0-12.0); Neutrophils # (auto) 14.1 10 ^3/uL (1.6-8.6); Neutrophils % (auto) 86.5 % (37.0-80.0); Platelet Count (auto) 297 10^3/uL (140-450); Red Blood Cells 5.74 10^6/uL (4.5-5.90); Red Cell Distribution Width 13.7 % (11.8-14.3); White Blood Cell 16.3 10^3/uL (4.4-10.8)
[2024-04-22 06:59] LABS: Albumin 4.3 g/dL (3.2-4.8); Alkaline Phosphatase 61 U/L (46-116); Anion Gap 20 (5-15); BUN/Creatinine Ratio 8.7 (10.0-20.0); Bilirubin, Total 0.4 mg/dL (0.2-1.0); Glucose 96 mg/dL (74-106); Total Protein 7.1 g/dL (5.7-8.2)
[2024-04-22] MEDS: fentaNYL CITRATE 100 MCG/2 ML VL IV ONE (07:15)
[2024-04-22] MEDS: MIDAZOLAM HCL 2MG/2ML 2ml VIAL (1mg/ml) IV ONE (07:15)
[2024-04-22 07:19] LABS: Carbon Dioxide 14 mmol/L (20-31); Chloride 93 mmol/L (98-107); Sodium 127 mmol/L (136-145)
[2024-04-22 07:20] LABS: Alanine Aminotransferase 841 U/L (7-40); Aspartate Aminotransferase 3367 U/L (13-40); Phosphorus 17.3 mg/dL (2.4-5.1)
[2024-04-22 07:24] LABS: Blood Urea Nitrogen 86 mg/dL (9-23); Calcium 5.3 mg/dL (8.7-10.4); Potassium 6.4 mmol/L (3.5-5.1)
[2024-04-22 08:06] LABS: Complement C3 178 mg/dL (82-167); RPR Non Reactive (Non Reactive)
[2024-04-22] MEDS: ALBUTEROL SULF 2.5 MG/0.5ML(0.5%) NEB SOLN NEB ONE ×2 (08:59→09:14)
[2024-04-22] MEDS: DEXTROSE (50%) 50ML SYRG IV ONE ×2 (10:24→19:24)
[2024-04-22] MEDS: InsuLIN REG 1unit/0.01ml Soln (100units/ml) IV ONE ×2 (10:31→19:25)
[2024-04-22 13:06] LABS: Anti-Nuclear Antibody Direct Negative (Negative)
[2024-04-22] MEDS: SODIUM BICARB 8.4% 50Meq/50ml SYR INJ IV ONE (14:49)
[2024-04-22] MEDS: SODIUM ZIRCONIUM CYCL 10 GM PAK PO ONE (14:52)
--- NOTE | 2024-04-22 15:34 | DVH ---
CHEST RADIOGRAPH Indication: RENAL FAILURE Technique: Single frontal view of the chest was obtained COMPARISON: XY CHEST PORTABLE on DOS: 04/20/24 FINDINGS: Lines and Tubes: None Lungs: Clear Pleura: No effusion. No pneumothorax. Cardiomediastinal contours: Unremarkable Bones: Unremarkable IMPRESSION: 1. No acute disease.
[2024-04-22] MEDS: CALCIUM GLUC 1,000mg/50ml-NS 50 ML IV SCH (16:00)
[2024-04-22] MEDS: ONDANSETRON HCL 4 MG/2 ML VIAL IV ONE (17:29)
[2024-04-22] MEDS: MORPHINE SULFATE INJ 2 MG/ml SYRG IV ONE (17:30)
[2024-04-22] MEDS: LORazepam 2MG/ML-1ML VIAL IV ONE (17:36)
[2024-04-22 18:21] LABS: Anion Gap 20 (5-15)
--- NOTE | 2024-04-22 18:24 | DVH ---
EXAM: XR Chest, 1 View CLINICAL INDICATION: dialysis catheter insertion TECHNIQUE: Frontal view of the chest. COMPARISON: XY CHEST PORTABLE on DOS: 04/22/24, XY CHEST PORTABLE on DOS: 04/20/24 FINDINGS: LUNGS AND PLEURAL SPACES: See below. HEART: Cardiomegaly with mild congestion. MEDIASTINUM: Unremarkable. Normal mediastinal contour. BONES/JOINTS: Unremarkable. No acute fracture. TUBES, LINES AND DEVICES: Right internal jugular central venous catheter tip in the superior vena ca va. OTHER FINDINGS: . . . . IMPRESSION: Cardiomegaly with mild congestion. HS:Y
[2024-04-22 18:26] LABS: Glucose 104 mg/dL (74-106)
[2024-04-22 18:30] LABS: Carbon Dioxide 14 mmol/L (20-31); Chloride 93 mmol/L (98-107); Sodium 127 mmol/L (136-145)
[2024-04-22 18:39] LABS: Blood Urea Nitrogen 97 mg/dL (9-23); Calcium 4.8 mg/dL (8.7-10.4); Potassium 6.9 mmol/L (3.5-5.1)
[2024-04-22] MEDS: SODIUM CHL 0.9% 1000 ML BAG XX ONE (19:00)
--- NOTE | 2024-04-22 19:13 | DVHNC2 ---
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 (Aakash Davila np) Indication: Other (Hemodialysis) Room prepared for procedure: Yes Call Specialist performed hand hygien: Yes Maximal sterile barrier precau: Mask/Eye shield, Sterile gown, Cap, Sterlie gloves, Large sterlie drape Skin Preparation: Chlorhexidine gluconate Skin preparation completely dr: Yes Insertion site: Right, Internal jugular Central line catheter type: Dialysis non-tunneled Number of lumens: 2 Central line exchanged over a: No Antiseptic ointment applied to: No Post Assessment: Chest X-Ray, Proper placement, No Pneumothorax Informed consent obtained: Yes Risks/benefits/alt described: Yes Notes Estimated blood loss: 5 mL Ultrasound guidance used: CPT code: 36586 Date of Service: Apr 22, 2024 Billing Provider: NEO DAVILA NP Common Visit Codes: PROCEDURE ONLY Procedure Codes: [id number] NON-TUNNEL CV CATH NEO DAVILA NP Apr 22, 2024 19:13
[2024-04-22] MEDS: BUMETANIDE 2.5mg/10ml (0.25 mg/ml) INJ IV ONE (19:25)
--- NOTE | 2024-04-22 19:47 | DVHPN2 ---
Progress Note - Dictate Date Seen: Apr 22, 2024 Medical Necessity Reason Pt with a Central, PICC or Fol: Yes The following are medically ne: Lopez Catheter Reason for lopez catheter: Strict I&O Subjective Patient awake and responsive, coherent to understand and consent to his need for requiring dialysis therapy. vital signs Vital Sign Date Time Temp Pulse Resp B/P (MAP) Pulse Ox O2 Delivery O2 Flow Rate FiO2 04/22/24 17:48 89 16 130/57 04/22/24 17:00 98.1 97 98.1 04/22/24 08:59 Room Air* 0 21 Total Intake and Output 04/21/24 04/21/24 04/22/24 15:00 23:00 07:00 Intake Total 1065 ml 720 ml 0 ml Output Total 200 ml 100 ml Balance 1065 ml 520 ml -100 ml medications Current Medications Medications Dose Ordered Sig/Drew Route Start Time Stop Time Status Last Admin Dose Admin Acetaminophen 500 mg Q4HPRN PRN PO 04/20/24 18:30 Acetaminophen/ Hydrocodone Bitart 1 tab Q6HPRN PRN PO 04/20/24 18:30 04/21/24 21:50 1 TAB Morphine Sulfate 1 mg Q4HPRN PRN IV 04/20/24 18:30 04/22/24 13:21 1 MG Ceftriaxone Sodium 50 ml @ 100 mls/hr DAILY@09 IV 04/21/24 09:00 04/22/24 10:43 100 MLS/HR Sodium Bicarbonate 50 ml/ Sodium Chloride 1,050 ml @ 150 mls/hr Q7H IV 04/21/24 10:00 04/22/24 10:59 150 MLS/HR Calcium Acetate 2,001 mg TIDWMEALS PO 04/21/24 12:00 04/22/24 13:21 2,001 MG Ondansetron HCl 4 mg Q4HPRN PRN IV 04/21/24 14:15 04/22/24 01:15 4 MG objective gen: nad lungs: coarse bs cvs: no rub ext: no edema laboratory and microbiology Laboratory Tests 04/22/24 18:04 04/22/24 06:23 Test 04/22/24 18:04 Range/Units Serum Glucose 104 74-106 mg/dL Assessment/Plan Acute kidney injury likely secondary to postinfectious GN Strep pharyngitis Hyperkalemia Metabolic acidosis Hypocalcemia Recommendations - initiation of kidney replacement in setting of fulminant HORACE - will check uric acid, given extremely high phosphorus level and elevated CK consideration for rhabdo/ pigment nephropathy is additional potential Etiology for HORACE - IV calcium during dialysis - repeat bmp in AM Plan discussed with: Patient GAYLE BURTON MD Apr 22, 2024 19:47
--- NOTE | 2024-04-22 20:27 | DVHPNRES ---
Progress Note Date Seen: Apr 22, 2024 Resident Creating Document: FLORIAN DIAZ RESIDENT Medical Necessity Reason Pt with a Central, PICC or Fol: Yes The following are medically ne: Lopez Catheter Reason for lopez catheter: Strict I&O Subjective Review of Systems This is a 28-year-old obese male patient no relevant past medical history presented to the ER with a chief complaint of generalized weakness, fatigue and body aches for the past 1 week. He reports feeling feverish, productive cough with yellow sputum, body aches and weakness for the past 1 week for which he visited urgent care and was diagnosed with a strep throat and influenza infection. Patient received antibiotics and was taking them for the past couple of days, thinks it was amoxicillin but does not remember for sure. He says that he has been getting weak progressively associated with low appetite and generalized muscle ache for the past couple of days. Also reports abdominal heaviness. He says that his fever productive cough has been resolved. Patient's son was also diagnosed with strep throat infection recently. Patient denies chest pain, shortness of breaths, recent falls or blurry vision, nausea or vomiting, dysuria constipation or diarrhea. Past medical history: Unremarkable Family history:Mom at the age of 49 - had cancer, details unknown. Mother also had CHF.. Social history: Lives with and son, uses cigar occasionally, denies smoking. Drinks socially. 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 04/21 - Patient seen and examined at the bedside. Reports no shortness of breath, chest pain or palpitations. Telemetry reviewed, shows intermittent tachycardia which is sinus and rate is up to 150s to 170s beats per minute. 2 g IV calcium administered given the hyperkalemia with EKG changes of peaked T- waves. Nephrology consulted 04/22 - patient seen and examined at bedside. Reports generalized weakness, urine output decreased. Patient is oliguric, making 10 mL of dark urine. Patient received dextrose with insulin, Lokelma in the a.m.. Repeat potassium 5.6. Nephrology recommended dialysis. Patient undergone hemodialysis today. Dialysis catheter inserted. Patient transferred to [facility]/ICU. Renal biopsy was 04/25. WBC 16. Chest x-ray shows increased pulmonary vascular congestion. Objective vital signs Vital Sign Date Time Temp Pulse Resp B/P (MAP) Pulse Ox O2 Delivery O2 Flow Rate FiO2 04/22/24 17:48 89 16 130/57 04/22/24 17:00 98.1 97 98.1 04/22/24 08:59 Room Air* 0 21 Total Intake and Output 04/21/24 04/21/24 04/22/24 15:00 23:00 07:00 Intake Total 1065 ml 720 ml 0 ml Output Total 200 ml 100 ml Balance 1065 ml 520 ml -100 ml medications Current Medications Medications Dose Ordered Sig/Drew Route Start Time Stop Time Status Last Admin Dose Admin Acetaminophen 500 mg Q4HPRN PRN PO 04/20/24 18:30 Acetaminophen/ Hydrocodone Bitart 1 tab Q6HPRN PRN PO 04/20/24 18:30 04/21/24 21:50 1 TAB Morphine Sulfate 1 mg Q4HPRN PRN IV 04/20/24 18:30 04/22/24 13:21 1 MG Ceftriaxone Sodium 50 ml @ 100 mls/hr DAILY@09 IV 04/21/24 09:00 04/22/24 10:43 100 MLS/HR Sodium Bicarbonate 50 ml/ Sodium Chloride 1,050 ml @ 150 mls/hr Q7H IV 04/21/24 10:00 04/22/24 10:59 150 MLS/HR Calcium Acetate 2,001 mg TIDWMEALS PO 04/21/24 12:00 04/22/24 13:21 2,001 MG Ondansetron HCl 4 mg Q4HPRN PRN IV 04/21/24 14:15 04/22/24 01:15 4 MG Examination Morbidly obese male patient lying in bed, in no acute distress General: Obese, afebrile, palor, mucosae are moist, sclera injection seen. T ongue has white scrape able lesions. Pharynx is erythematous Cardiovascular: Regular S1 and S2. No murmurs, gallops or rubs. No JVD elevation. 1+ pitting edema in the lower extremities Respiratory: Normal B/L air entry on room air. Clear lung sounds on auscultation Abdomen: Soft, nontender, nondistended, normoactive bowel sounds, no rebound tenderness, no organomegaly, no masses Genitourinary: Deferred MSK/skin: Mobilizes 4 limbs. Skin is dry and warm Neurological: No motor, no sensitive deficits, normal speech. Pupils are isocoric and reactive. Psych/Mental Status: A/Ox4 laboratory and microbiology Laboratory Tests 04/22/24 18:04 04/22/24 06:23 Test 04/22/24 18:04 Range/Units Serum Glucose 104 74-106 mg/dL Microbiology Date/Time Source Procedure Growth Status 04/20/24 19:10 Blood Blood Culture - Preliminary NO GROWTH AFTER 48 HOURS OF INCUBATION. Resulted Labs and/or images reviewed: Labs reviewed by me, Image(s) reviewed by me Problem List/Assessment/Plan Problem List/Assessment/Plan SIRS secondary to strep throat/rhabdomyolysis and influenza infection Strep pharyngitis WBC elevated at 15 with neutrophilic predominance Pending blood culture, lactic acid, throat culture Positive rapid strep throat Started IV ceftriaxone 04/20 Started acetaminophen q.4 p.r.n. WBC trending up to 17 Prolonged QTc secondary to hypocalcemia Avoid QTc prolonging agents Anion gap Metabolic acidosis Acute renal failure, likely secondary to rhabdomyolysis versus PSGN Secondary hyper parathyroidism Vitamin-D deficiency Symptomatic Hypocalcemia and hyperphosphatemia Hyponatremia Elevated AST/ALT due to rhabdomyolysis IV NS 125 cc/hour Urine protein, creatinine pending Nephrology consulted - RENAL BIOPSY 04/25. NPO STARTING MIDNIGHT 04/25. Started calcium acetate 2001 mg PO TID 04/21 Nephrology started hemodialysis 04/22 CK greater than 7800 Renal ultrasound unremarkable C3, C4, RPR pending Hepatitis-B and C negative Urine protein/creatinine ratio 2.5 Sodium bicarbonate 150 mL/hour UA shows 3+ blood and only 2 RBCs Generalized weakness due to Hyperkalemia with EKG changes 2 g IV calcium administered 04/21 along with insulin, dextrose, Lokelma Potassium improved to 4.8 Rule out PE/DVT V/Q scan shows low probability for PE Lower extremity Doppler is negative 1 dose of Lovenox 150 mg sc administered by the ER Diet renal Lopez placed 04/22. Patient underwent hemodialysis Plan discussed with patient in which all questions have been answered Goals of care have been discussed with the patient for more than 20 minutes, full code status critical care time excluding procedures was 41 mins Case discussed with Dr. Fuller. Patient transferred to ICU. Plan discussed with: Patient, Spouse (At bedside) My Orders My Orders Orders - FLORIAN DIAZ RESIDENT Procedure Category Date Status Time Electrocardigram EKG 04/22/24 Logged 07:57 Renal DIET 04/22/24 Transmitted Standard(2gna,3gk,Lopho) Lunch Date of Service: Apr 22, 2024 Billing Provider: GEM FULLER MD Common Visit Codes: [id number] CARE 30-74 MIN FLORIAN DIAZ Apr 22, 2024 20:27 GEM FULLER MD Apr 24, 2024 12:39
[2024-04-23] VITALS (96 sets, daily range): BP systolic 119–181; BP diastolic 60–116; PULSE 72–196; RESP 8–26; TEMP 97.9–98.9; O2SAT 82–99
[2024-04-23 03:52] LABS: Basophils # (auto) 0 10 ^3/uL (0-0.2); Basophils % (auto) 0.2 % (0.0-2.0); Eosinophils # (auto) 0 10 ^3/uL (0-0.8); Eosinophils % (auto) 0.2 % (0.0-7.0); Hematocrit 41.5 % (41.0-53.0); Hemoglobin 14.3 g/dL (13.5-17.5); Lymphocytes % (auto) 7.7 % (10.0-50.0); Mean Corpuscular Hgb Conc. 34.6 g/dL (32.0-36.0); Mean Corpuscular Volume 83.8 fL (80.0-100.0); Monocytes # (auto) 1.3 10 ^3/uL (0-1.3); Monocytes % (auto) 10.1 % (0.0-12.0); Neutrophils # (auto) 10.5 10 ^3/uL (1.6-8.6); Neutrophils % (auto) 81.8 % (37.0-80.0); Platelet Count (auto) 259 10^3/uL (140-450); Red Blood Cells 4.95 10^6/uL (4.5-5.90); Red Cell Distribution Width 13.5 % (11.8-14.3); White Blood Cell 12.8 10^3/uL (4.4-10.8)
[2024-04-23 04:10] LABS: Anion Gap 17 (5-15); Carbon Dioxide 21 mmol/L (20-31)
[2024-04-23 04:15] LABS: BUN/Creatinine Ratio 8.6 (10.0-20.0); Glucose 89 mg/dL (74-106)
[2024-04-23 04:51] LABS: Chloride 94 mmol/L (98-107); Potassium 5.3 mmol/L (3.5-5.1); Sodium 132 mmol/L (136-145)
[2024-04-23 04:54] LABS: Blood Urea Nitrogen 85 mg/dL (9-23); Calcium 5.4 mg/dL (8.7-10.4)
[2024-04-23] MEDS: SODIUM BICARB 8.4% 50Meq/50ml SYR Vial IV ONE (06:04)
[2024-04-23] MEDS: SODIUM CHL 0.9% 1000 ML BAG XX ONE (07:00)
[2024-04-23 07:17] LABS: Creatine Kinase IFCC > 7800 U/L (46-171)
[2024-04-23 08:28] LABS: Uric Acid 15.9 mg/dL (3.7-9.2)
--- NOTE | 2024-04-23 09:46 | DVHPN2 ---
Subjective Patient denies any symptoms at this time other than generalized weakness and leg pain Reviewed: Care Plan, H&P, Labs Changes from previous H/P or p: No Changes Eyes: Conjunctivae inflammation Gastrointestinal: Abdominal Pain Objective Vitals Vital Signs Date Time Temp Pulse Resp B/P (MAP) Pulse Ox O2 Delivery O2 Flow Rate FiO2 04/23/24 06:45 85 17 94 04/23/24 04:00 97.9 97.9 04/22/24 23:09 Room Air 0.0 04/22/24 20:00 21 Intake/Output Intake and Output 04/23/24 07:00 Intake Total 1950 ml Output Total 150 ml Balance 1800 ml Intake Oral 300 ml IV Total 1650 ml Output Urine Total 150 ml General Appearance: Alert, Oriented X3, Cooperative, mild distress HEENT: Atraumatic, PERRLA Lungs: Clear to auscultation, Normal air movement, Other (Nasal cannula at 2 liters/minute) Cardiovascular: Normal S1, Normal S2 Medications Current Medications Medications Dose Ordered Sig/Drew Route Start Time Stop Time Status Last Admin Dose Admin Acetaminophen 500 mg Q4HPRN PRN PO 04/20/24 18:30 Acetaminophen/ Hydrocodone Bitart 1 tab Q6HPRN PRN PO 04/20/24 18:30 04/23/24 09:00 1 TAB Morphine Sulfate 1 mg Q4HPRN PRN IV 04/20/24 18:30 04/23/24 05:32 1 MG Ceftriaxone Sodium 50 ml @ 100 mls/hr DAILY@09 IV 04/21/24 09:00 04/23/24 08:59 100 MLS/HR Sodium Bicarbonate 50 ml/ Sodium Chloride 1,050 ml @ 150 mls/hr Q7H IV 04/21/24 10:00 04/23/24 06:30 150 MLS/HR Calcium Acetate 2,001 mg TIDWMEALS PO 04/21/24 12:00 04/23/24 09:00 2,001 MG Ondansetron HCl 4 mg Q4HPRN PRN IV 04/21/24 14:15 04/22/24 01:15 4 MG Laboratory Results Laboratory Tests 04/23/24 03:26 Chemistry Test 04/22/24 18:04 04/23/24 03:26 Calcium Level 4.8 mg/dL (8.7-10.4) *L 5.4 mg/dL (8.7-10.4) *L Urinalysis Test 04/21/24 09:35 Urine Color Yellow (Yellow) Urine Clarity Turbid (Clear) H Urine pH 5.5 (5.0-9.0) Urine Specific [place] 1.022 (1.001-1.035) Urine Protein 2+ (Negative) H Urine Ketones Negative (Negative) Urine Blood 3+ /uL (Negative) H Urine Nitrite Negative (Negative) Urine Bilirubin Negative (Negative) Urine Urobilinogen Normal mg/dL (Negative) Urine Leukocyte Esterase Trace /uL (Negative) Urine RBC 2 /hpf (0 - 3) Urine WBC 56 /hpf (0 - 3) Urine Squamous Epithelial Cells Few /hpf (<5) Urine Bacteria Few /hpf (None Seen) H Urine Creatinine 318.19 mg/dL (30.0-125.0) H Urine Sodium 39 mmol/L (40-220) L Urine Glucose 1+ mg/dL (Normal) H Urine Total Protein 844.9 mg/dL (1-14) H Microbiology Microbiology Date/Time Source Procedure Growth Status 04/20/24 19:10 Blood Blood Culture - Preliminary NO GROWTH AFTER 48 HOURS OF INCUBATION. 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 -plans for kidney biopsy on 04/25 Critical care time spent with patient discussing and formulating plan of care: 40 minutes. This does not include time spent performing procedures. This medical document was created using an electronic medical record system with [employer] system. Although this document has been carefully reviewed, there may still be some phonetic and typographical errors. These areas are purely typographical due to imperfections of the software programs, and do not reflect any compromise in the patient's medical care. Plan discussed with: Patient, Spouse, Other (RN) My Orders Orders - SALBINO,LARSON ACTIVITIES ASSISTANT Procedure Category Date Status Time Communication Order ORDERS 04/22/24 Transmitted 17:33 Us Guided Vascular US 04/22/24 Logged Access 17:33 Chest Portable XY 04/22/24 Resulted 17:42 Date of Service: Apr 23, 2024 Billing Provider: NEO DAVILA NP Common Visit Codes: [id number] CARE 30-74 MIN NEO DAVILA NP Apr 23, 2024 09:46
--- NOTE | 2024-04-23 19:55 | DVHPN2 ---
Progress Note - Dictate Date Seen: Apr 23, 2024 Medical Necessity Reason Pt with a Central, PICC or Fol: Yes The following are medically ne: Lopez Catheter Reason for lopez catheter: Strict I&O Subjective patient more awake, patient's at bedside.. Tolerated his second dialysis well this morning. vital signs Vital Sign Date Time Temp Pulse Resp B/P (MAP) Pulse Ox O2 Delivery O2 Flow Rate FiO2 04/23/24 19:15 92 17 135/80 (98) 99 04/23/24 08:00 Nasal Cannula* 2 04/23/24 04:00 97.9 97.9 Total Intake and Output 04/22/24 04/22/24 04/23/24 15:00 23:00 07:00 Intake Total 300 ml 450 ml 1200 ml Output Total 150 ml Balance 300 ml 300 ml 1200 ml medications Current Medications Medications Dose Ordered Sig/Drew Route Start Time Stop Time Status Last Admin Dose Admin Acetaminophen 500 mg Q4HPRN PRN PO 04/20/24 18:30 Acetaminophen/ Hydrocodone Bitart 1 tab Q6HPRN PRN PO 04/20/24 18:30 04/23/24 09:00 1 TAB Morphine Sulfate 1 mg Q4HPRN PRN IV 04/20/24 18:30 04/23/24 05:32 1 MG Ceftriaxone Sodium 50 ml @ 100 mls/hr DAILY@09 IV 04/21/24 09:00 04/23/24 08:59 100 MLS/HR Sodium Bicarbonate 50 ml/ Sodium Chloride 1,050 ml @ 150 mls/hr Q7H IV 04/21/24 10:00 04/23/24 14:03 150 MLS/HR Calcium Acetate 2,001 mg TIDWMEALS PO 04/21/24 12:00 04/23/24 18:23 2,001 MG Ondansetron HCl 4 mg Q4HPRN PRN IV 04/21/24 14:15 04/22/24 01:15 4 MG objective gen: nad lungs: coarse bs cvs: no rub ext: no edema laboratory and microbiology Laboratory Tests 04/23/24 03:26 Test 04/23/24 03:26 Range/Units Serum Glucose 89 74-106 mg/dL Assessment/Plan Acute kidney injury likely secondary to postinfectious GN +/- pigment nephropathy Strep pharyngitis Hyperkalemia Metabolic acidosis Hypocalcemia Rhabdomyolysis Recommendations - bmp in AM - Daily evaluation for Kidney replacement therapy - discussed plan of care from nephrology perspective with patient and his spouse Plan discussed with: Patient, Spouse GAYLE BURTON MD Apr 23, 2024 19:55
--- NOTE | 2024-04-23 23:08 | DVHINCON2 ---
Date of service: Apr 23, 2024 Referring Physician Clifton Hill MD Reason for Consultation Acute hypoxic respiratory failure History of Present Illness A 28-year-old obese man with no significant past medical history who presented to the ER on 04/20/24 with c/o generalized weakness, fatigue and body aches for the past 1 week. He reported feeling feverish, productive cough with yellow sputum, body aches and weakness x1 week; went to , was dx'd with strep throat and influenza. Patient received antibiotics which he took for couple of days. He reports progressive weakness a/w low appetite and generalized muscle aches and abdominal heaviness x2 days. No current fevers or productive cough. No other associated symptoms. Son was dx'd with strep throat recently. Patient was admitted for further care and pulmonary consultation is requested for evaluation and management d/t the above findings. Review of Systems: 14-point review of systems negative unless otherwise noted above. Past Medical History: None Past Surgical History: None Medications: Reviewed. Allergies: Codeine. Family History: Mom at the age of 49 - had cancer, details unknown. Mother also had CHF. Social History: Smoker. <1 pack per day (Uses cigarettes occasionally, denies smoking or vaping) Alcohol use: occasional (Drinks socially) No illicit drug use. Allergies: Coded Allergies: Codeine (Verified Allergy, Unknown, 04/28/21) Home Meds No Active Prescriptions or Reported Meds Vital Signs Vital Signs Date Time Temp Pulse Resp B/P (MAP) Pulse Ox O2 Delivery O2 Flow Rate FiO2 04/23/24 22:45 98 8 95 04/23/24 20:00 98.7 98.7 04/23/24 08:00 Nasal Cannula* 06 24 Physical Exam Gen.: Patient lying in bed in no apparent distress. On supplemental oxygen. Head: Normocephalic, atraumatic. Eyes: EOMI/PERRLA. Ears: Normal hearing. Normal anatomy. Neck/trachea: Trachea midline, supple. Nose: Normal external anatomy. Mouth: Moist mucous membranes. Chest: Decreased air entry bilaterally. No wheezing or rhonchi. Cardiovascular: Positive S1, positive S2. Regular rate and rhythm. Abdomen: Positive bowel sounds in all 4 quadrants. Soft, non-tender, non- distended. : Deferred. Rectal: Deferred. Skin: Warm, dry. Intact. Extremities: 2+ radial pulses bilaterally. No lower extremity edema. Neuro: Awake, alert, oriented x3. No gross motor or sensory deficits. Cranial nerves II through XII intact. Gait not assessed. Labs/Diagnostic Data Labs Test 04/23/24 03:26 04/22/24 10:31 04/22/24 06:23 04/21/24 15:19 Range/Units White Blood Count 12.8 H 4.4-10.8 10^3/uL Red Blood Count 4.95 4.5-5.90 10^6/uL Hemoglobin 14.3 # 13.5-17.5 g/dL Hematocrit 41.5 # 41.0-53.0 % Mean Corpuscular Volume 83.8 80.0-100.0 fL Mean Corpuscular Hemoglobin 29.0 28.0-32.0 pg Mean Corpuscular Hemoglobin Concent 34.6 32.0-36.0 g/dL Red Cell Distribution Width 13.5 11.8-14.3 % Platelet Count 259 140-450 10^3/uL Mean Platelet Volume 8.8 6.9-10.8 fL Neutrophils (%) (Auto) 81.8 H 37.0-80.0 % Lymphocytes (%) (Auto) 7.7 L 10.0-50.0 % Monocytes (%) (Auto) 10.1 0.0-12.0 % Eosinophils (%) (Auto) 0.2 0.0-7.0 % Basophils (%) (Auto) 0.2 0.0-2.0 % Neutrophils # (Auto) 10.5 H 1.6-8.6 10 ^3/uL Lymphocytes # (Auto) 1.0 0.4-5.4 10 ^3/uL Monocytes # (Auto) 1.3 0-1.3 10 ^3/uL Eosinophils # (Auto) 0 0-0.8 10 ^3/uL Basophils # (Auto) 0 0-0.2 10 ^3/uL Nucleated Red Blood Cells 0.0 % Sodium Level 132 #L 136-145 mmol/L Potassium Level 5.3 H 3.5-5.1 mmol/L Chloride Level 94 L 98-107 mmol/L Carbon Dioxide Level 21 20-31 mmol/L Anion Gap 17 H 5-15 Blood Urea Nitrogen 85 #*H 9-23 mg/dL Creatinine 9.90 H 0.700-1.30 mg/dL Glomerular Filtration Rate Calc 7 >90 mL/min BUN/Creatinine Ratio 8.6 L 10.0-20.0 Serum Glucose 89 74-106 mg/dL Uric Acid 15.9 H 3.7-9.2 mg/dL Calcium Level 5.4 *L 8.7-10.4 mg/dL Creatine Kinase > 7800 H 46-171 U/L POC Glucose 215 H 70-106 mg/dl Phosphorus Level 17.3 H 2.4-5.1 mg/dL Magnesium Level 3.0 H 1.6-2.6 mg/dL Total Bilirubin 0.4 0.2-1.0 mg/dL Aspartate Amino Transferase (AST) 3367 H 13-40 U/L Alanine Aminotransferase (ALT) 841 H 7-40 U/L Alkaline Phosphatase 61 46-116 U/L Total Protein 7.1 5.7-8.2 g/dL Albumin 4.3 3.2-4.8 g/dL Group A Streptococcus Rapid Positive Test 04/21/24 12:45 04/21/24 09:35 04/21/24 05:56 04/20/24 20:18 Range/Units Anti-Nuclear Antibody Screen Negative Negative Complement C3 178 H 82-167 mg/dL Complement C4 26 12-38 mg/dL Rapid Plasma Reagin Non reactive Non Reactive Urine Color Yellow Yellow Urine Clarity Turbid H Clear Urine pH 5.5 5.0-9.0 Urine Specific [place] 1.022 1.001-1.035 Urine Protein 2+ H Negative Urine Ketones Negative Negative Urine Blood 3+ H Negative /uL Urine Nitrite Negative Negative Urine Bilirubin Negative Negative Urine Urobilinogen Normal Negative mg/dL Urine Leukocyte Esterase Trace Negative /uL Urine RBC 2 0 - 3 /hpf Urine WBC 56 0 - 3 /hpf Urine Squamous Epithelial Cells Few <5 /hpf Urine Bacteria Few H None Seen /hpf Urine Creatinine 318.19 H 30.0-125.0 mg/dL Urine Sodium 39 L 40-220 mmol/L Urine Glucose 1+ H Normal mg/dL Urine Total Protein 844.9 H 1-14 mg/dL Urine Opiates Screen Neg NEGATIVE Urine Fentanyl Screen Neg NEGATIVE Urine Barbiturates Screen Neg NEGATIVE Urine Phencyclidine Screen Neg NEGATIVE Urine Amphetamines Screen Neg NEGATIVE Urine Benzodiazepines Screen Neg NEGATIVE Urine Cocaine Screen Neg NEGATIVE Urine Cannabinoids Screen Neg NEGATIVE Vitamin D 25-Hydroxy 21.7 L 30.0-100 ng/mL Parathyroid Hormone (Intact) 626.0 H 18.4-80.1 pg/mL Hepatitis C Antibody Negative Negative Serum Osmolality 295 278-298 mOsm/kg Acetaminophen Level < 2.0 L 10.0-20.0 UG/ML Plasma/Serum Blood Alcohol 3.4 <10 mg/dL Hepatitis A IgM Antibody Negative Hepatitis A Antibody Total Positive H Negative Hepatitis B Surface Antibody Positive H Negative Hepatitis B Core Total Antibody Negative Negative Hepatitis B Core IgM Antibody Negative Negative Test 04/20/24 19:10 04/20/24 18:33 04/20/24 18:32 04/20/24 18:11 Range/Units Hemoglobin A1c 5.7 <5.7 % A1C Prothrombin Time 11.0 9.3-11.8 sec Prothrombin Time INR 1.04 0.9-1.15 Activated Partial Thromboplast Time 27.8 24.5-34.5 SEC SARS-CoV-2 Antigen (Rapid) Negative NEGATIVE Lactic Acid Level 1.6 0.4-2.0 mmol/L Direct Bilirubin 0.2 <0.3 mg/dL Troponin I High Sensitivity 28 </=54 ng/L Thyroid Stimulating Hormone (TSH) 1.19 0.55-4.78 uIU/mL Test 04/20/24 14:02 04/20/24 13:20 Range/Units Influenza Type A Antigen Negative Negative Influenza Type B Antigen Negative Negative D-Dimer, Quantitative 2.12 H 0.0-0.49 mg/L FEU B-Type Natriuretic Peptide 0.44 0-100 pg/mL Microbiology Date/Time Source Procedure Growth Status 04/22/24 20:00 Nose MRSA Screen - Final Complete 04/20/24 19:10 Blood Blood Culture - Preliminary NO GROWTH AFTER 72 HOURS OF INCUBATION. Resulted Assessment Impression: Acute hypoxic respiratory failure Strep A infection Post-streptococcal glomerulonephritis Acute kidney injury Obstructive sleep apnea Nicotine dependence Plan: CXR demonstrates mild pulmonary vascular congestion. Supplemental oxygen Titrate to keep O2 sats above 92%. Continue antibiotics Blood cultures show no growth for 48 hours MRSA negative WBC tapering down Monitor renal function. Monitor electrolytes. Supplement as necessary. Monitor ins and outs K of 5.3 - trending down.. Low calcium - supplement CK remains elevated Hemodialysis per Nephrology OK to use home CPAP for SWEETIE. Smoking cessation discussed for greater than 10 minutes DVT prophylaxis. Prognosis: Poor given patient's multiple co-morbidities. Condition: Critical Rest of plan per hospitalist and other consultants. A total of 35 minutes of critical care time was spent reviewing the patient record, examining the patient, making a diagnostic and therapeutic plan, discussing this plan with the medical personnel, following up on diagnostic studies and following the patient for clinical stability excluding any and all procedures. At least 50% of this time was spent in direct, [id number] contact. Thank you, Dr. Clifton Hill, for allowing me to participate in this patient's care. Further recommendations will depend on the patient's clinical course. Please do not hesitate to contact me if you have any questions or concerns. This medical document was created using an electronic medical record system with [employer] dictation system. Although these documentations are being carefully reviewed, there may still be some phonetic and typographical changes. The errors are purely typographical, due to imperfection on the software program, and do not reflect any compromise in the patient's medical care. Plan discussed with: Patient, Other (ZUHAIR Diaz/MD Hill) SHERRY DAVIS MD Apr 23, 2024 23:08
[2024-04-24] VITALS (86 sets, daily range): BP systolic 123–149; BP diastolic 55–88; PULSE 79–99; RESP 10–29; TEMP 97.8–98.7; O2SAT 92–98
[2024-04-24 04:18] LABS: Anion Gap 14 (5-15); Carbon Dioxide 26 mmol/L (20-31)
[2024-04-24 04:23] LABS: BUN/Creatinine Ratio 8.5 (10.0-20.0); Glucose 82 mg/dL (74-106)
[2024-04-24 05:00] LABS: Sodium 133 mmol/L (136-145)
[2024-04-24 05:03] LABS: Chloride 93 mmol/L (98-107); Potassium 5.7 mmol/L (3.5-5.1)
[2024-04-24 05:04] LABS: Blood Urea Nitrogen 84 mg/dL (9-23); Calcium 5.9 mg/dL (8.7-10.4); Phosphorus 11.3 mg/dL (2.4-5.1)
[2024-04-24 06:04] LABS: Creatine Kinase IFCC > 7800 U/L (46-171); Uric Acid 12.9 mg/dL (3.7-9.2)
[2024-04-24] MEDS: CALCIUM GLUC 1,000mg/50ml-NS 50 ML IV ONE (08:03)
--- NOTE | 2024-04-24 09:11 | DVHPN2 ---
Subjective Patient denies any symptoms at this time other than generalized weakness and leg pain Reviewed: Care Plan, H&P, Labs Changes from previous H/P or p: No Changes Eyes: Conjunctivae inflammation Gastrointestinal: Abdominal Pain Objective Vitals Vital Signs Date Time Temp Pulse Resp B/P (MAP) Pulse Ox O2 Delivery O2 Flow Rate FiO2 04/24/24 06:45 87 22 97 04/24/24 04:00 98.2 98.2 04/23/24 20:00 Nasal Cannula* 2 28 Intake/Output Intake and Output 04/24/24 07:00 Intake Total 3810 ml Balance 3810 ml Intake Oral 410 ml IV Total 3400 ml General Appearance: Alert, Oriented X3, Cooperative, mild distress HEENT: Atraumatic, PERRLA Lungs: Clear to auscultation, Normal air movement, Other (Nasal cannula at 2 liters/minute) Cardiovascular: Normal S1, Normal S2 Extremities: No clubbing, No cyanosis Psych/Mental Status: Mental status NL, Mood NL Medications Current Medications Medications Dose Ordered Sig/Drew Route Start Time Stop Time Status Last Admin Dose Admin Acetaminophen 500 mg Q4HPRN PRN PO 04/20/24 18:30 Acetaminophen/ Hydrocodone Bitart 1 tab Q6HPRN PRN PO 04/20/24 18:30 04/23/24 20:38 1 TAB Morphine Sulfate 1 mg Q4HPRN PRN IV 04/20/24 18:30 04/23/24 05:32 1 MG Ceftriaxone Sodium 50 ml @ 100 mls/hr DAILY@09 IV 04/21/24 09:00 04/24/24 08:41 100 MLS/HR Sodium Bicarbonate 50 ml/ Sodium Chloride 1,050 ml @ 150 mls/hr Q7H IV 04/21/24 10:00 04/24/24 04:00 150 MLS/HR Calcium Acetate 2,001 mg TIDWMEALS PO 04/21/24 12:00 04/23/24 18:23 2,001 MG Ondansetron HCl 4 mg Q4HPRN PRN IV 04/21/24 14:15 04/24/24 02:41 4 MG Laboratory Results Laboratory Tests 04/23/24 03:26 04/24/24 03:09 Chemistry Test 04/24/24 03:09 Calcium Level 5.9 mg/dL (8.7-10.4) *L Phosphorus Level 11.3 mg/dL (2.4-5.1) H Urinalysis Test 04/21/24 09:35 Urine Color Yellow (Yellow) Urine Clarity Turbid (Clear) H Urine pH 5.5 (5.0-9.0) Urine Specific [place] 1.022 (1.001-1.035) Urine Protein 2+ (Negative) H Urine Ketones Negative (Negative) Urine Blood 3+ /uL (Negative) H Urine Nitrite Negative (Negative) Urine Bilirubin Negative (Negative) Urine Urobilinogen Normal mg/dL (Negative) Urine Leukocyte Esterase Trace /uL (Negative) Urine RBC 2 /hpf (0 - 3) Urine WBC 56 /hpf (0 - 3) Urine Squamous Epithelial Cells Few /hpf (<5) Urine Bacteria Few /hpf (None Seen) H Urine Creatinine 318.19 mg/dL (30.0-125.0) H Urine Sodium 39 mmol/L (40-220) L Urine Glucose 1+ mg/dL (Normal) H Urine Total Protein 844.9 mg/dL (1-14) H Microbiology Microbiology Date/Time Source Procedure Growth Status 04/22/24 20:00 Nose MRSA Screen - Final Complete 04/20/24 19:10 Blood Blood Culture - Preliminary NO GROWTH AFTER 72 HOURS OF INCUBATION. 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 Calcium supplementation. -continue sodium bicarbonate drip. -continue current antibiotic therapy -nephrology consultation: Plans for repeat HD today -O2 supplementation to keep saturation greater than 92% -potassium lowering agents -IV hydration per Nephrology -CPAP at night, okay to use home equipment if permissible with respiratory therapy department -repeat labs in a.m. -plans for kidney biopsy on 04/25 Critical care time spent with patient discussing and formulating plan of care: 40 minutes. This does not include time spent performing procedures. This medical document was created using an electronic medical record system with [employer] dictation system. Although this document has been carefully reviewed, there may still be some phonetic and typographical errors. These areas are purely typographical due to imperfections of the software programs, and do not reflect any compromise in the patient's medical care. Plan discussed with: Patient, Other (RN) My Orders Orders - NEO DAVILA NP Procedure Category Date Status Time Respiratory Misc. RT 04/23/24 Transmitted Order 09:41 Chest Xray 1 View XY 04/24/24 Logged 06:54 Comprehensive LAB 04/25/24 Verified Metabolic Panel 04:00 Complete Blood Count LAB 04/25/24 Verified 04:00 Date of Service: Apr 24, 2024 Billing Provider: NEO DAVILA NP Common Visit Codes: [id number] CARE 30-74 MIN NEO DAVILA NP Apr 24, 2024 09:11
--- NOTE | 2024-04-24 10:32 | DVH ---
CHEST RADIOGRAPH Indication: chf Technique: Single frontal view of the chest was obtained COMPARISON: XY CHEST PORTABLE on DOS: 04/22/24, XY CHEST PORTABLE on DOS: 04/22/24, XY CHEST PORTABLE on DOS: 04/20/24 FINDINGS: Lines and Tubes: Right central venous catheter in satisfactory position. Lungs: Mild congestion Pleura: No effusion. No pneumothorax. Cardiomediastinal contours: Unremarkable Bones: Unremarkable IMPRESSION: Mild congestion.
[2024-04-24] MEDS: SODIUM ZIRCONIUM CYCL 10 GM PAK PO SCH (13:36)
--- NOTE | 2024-04-24 16:00 | DVHPN2 ---
Progress Note - Dictate Date Seen: Apr 24, 2024 Medical Necessity Reason Pt with a Central, PICC or Fol: Yes The following are medically ne: Lopez Catheter Reason for lopze catheter: Strict I&O Subjective patient awake and alert, patient's aunt at bedside. vital signs Vital Sign Date Time Temp Pulse Resp B/P (MAP) Pulse Ox O2 Delivery O2 Flow Rate FiO2 04/24/24 14:15 83 21 95 04/24/24 12:30 98.7 98.7 04/24/24 08:00 Nasal Cannula* 2 28 Total Intake and Output 04/23/24 04/23/24 04/24/24 15:00 23:00 07:00 Intake Total 1510 ml 1250 ml 1200 ml Balance 1510 ml 1250 ml 1200 ml medications Current Medications Medications Dose Ordered Sig/Drew Route Start Time Stop Time Status Last Admin Dose Admin Acetaminophen 500 mg Q4HPRN PRN PO 04/20/24 18:30 Acetaminophen/ Hydrocodone Bitart 1 tab Q6HPRN PRN PO 04/20/24 18:30 04/23/24 20:38 1 TAB Morphine Sulfate 1 mg Q4HPRN PRN IV 04/20/24 18:30 04/23/24 05:32 1 MG Ceftriaxone Sodium 50 ml @ 100 mls/hr DAILY@09 IV 04/21/24 09:00 04/24/24 08:41 100 MLS/HR Sodium Bicarbonate 50 ml/ Sodium Chloride 1,050 ml @ 150 mls/hr Q7H IV 04/21/24 10:00 04/24/24 13:36 150 MLS/HR Calcium Acetate 2,001 mg TIDWMEALS PO 04/21/24 12:00 04/23/24 18:23 2,001 MG Ondansetron HCl 4 mg Q4HPRN PRN IV 04/21/24 14:15 04/24/24 09:37 4 MG Zirconium Oxide 10 gm Q8H PO 04/24/24 12:33 04/25/24 04:34 04/24/24 13:36 10 GM objective gen: nad lungs: coarse bs cvs: no rub ext: no edema laboratory and microbiology Laboratory Tests 04/24/24 03:09 04/23/24 03:26 Test 04/24/24 03:09 Range/Units Serum Glucose 82 74-106 mg/dL Assessment/Plan Acute kidney injury likely secondary to postinfectious GN +/- pigment nephropathy Strep pharyngitis Hyperkalemia Metabolic acidosis Hypocalcemia Rhabdomyolysis Recommendations - metabolically improved - dialysis for solute/ plan removal April 25 - Discussed plan of care with Kristopher and his aunt who is at bedside Plan discussed with: Patient, Other GAYLE BURTON MD Apr 24, 2024 16:00
--- NOTE | 2024-04-24 21:29 | DVHPN2 ---
Progress Note - Dictate Date Seen: Apr 24, 2024 Medical Necessity Reason Pt with a Central, PICC or Fol: Yes The following are medically ne: Lopez Catheter Reason for lopez catheter: Strict I&O Subjective Patient seen and examined at bedside. Remains on supplemental oxygen Overnight events reviewed. vital signs Vital Sign Date Time Temp Pulse Resp B/P (MAP) Pulse Ox O2 Delivery O2 Flow Rate FiO2 04/24/24 19:30 92 17 94 04/24/24 16:00 97.8 97.8 04/24/24 08:00 Nasal Cannula* 2 28 Total Intake and Output 04/23/24 04/23/24 04/24/24 15:00 23:00 07:00 Intake Total 1510 ml 1250 ml 1200 ml Balance 1510 ml 1250 ml 1200 ml medications Current Medications Medications Dose Ordered Sig/Drew Route Start Time Stop Time Status Last Admin Dose Admin Acetaminophen 500 mg Q4HPRN PRN PO 04/20/24 18:30 Acetaminophen/ Hydrocodone Bitart 1 tab Q6HPRN PRN PO 04/20/24 18:30 04/23/24 20:38 1 TAB Morphine Sulfate 1 mg Q4HPRN PRN IV 04/20/24 18:30 04/23/24 05:32 1 MG Ceftriaxone Sodium 50 ml @ 100 mls/hr DAILY@09 IV 04/21/24 09:00 04/24/24 08:41 100 MLS/HR Sodium Bicarbonate 50 ml/ Sodium Chloride 1,050 ml @ 150 mls/hr Q7H IV 04/21/24 10:00 04/24/24 13:36 150 MLS/HR Calcium Acetate 2,001 mg TIDWMEALS PO 04/21/24 12:00 04/23/24 18:23 2,001 MG Ondansetron HCl 4 mg Q4HPRN PRN IV 04/21/24 14:15 04/24/24 18:45 4 MG Zirconium Oxide 10 gm Q8H PO 04/24/24 12:33 04/25/24 04:34 04/24/24 13:36 10 GM objective Gen.: Patient lying in bed in no apparent distress. On supplemental oxygen. Head: Normocephalic, atraumatic. Eyes: EOMI/PERRLA. Ears: Normal hearing. Normal anatomy. Neck/trachea: Trachea midline, supple. Nose: Normal external anatomy. Mouth: Moist mucous membranes. Chest: Decreased air entry bilaterally. No wheezing or rhonchi. Cardiovascular: Positive S1, positive S2. Regular rate and rhythm. Abdomen: Positive bowel sounds in all 4 quadrants. Soft, non-tender, non- distended. : Deferred. Rectal: Deferred. Skin: Warm, dry. Intact. Extremities: 2+ radial pulses bilaterally. No lower extremity edema. Neuro: Awake, alert, oriented x3. No gross motor or sensory deficits. Cranial nerves II through XII intact. Gait not assessed. laboratory and microbiology Laboratory Tests 04/24/24 03:09 04/23/24 03:26 Test 04/24/24 03:09 Range/Units Serum Glucose 82 74-106 mg/dL Assessment/Plan Impression: Acute hypoxic respiratory failure Strep A infection Post-streptococcal glomerulonephritis Acute kidney injury Obstructive sleep apnea Nicotine dependence Events: Remains on supplemental oxygen, 2 LPM NC Taper O2 as tolerated CXR demonstrates mild pulmonary vascular congestion. WBC trending down. Continue antibiotics Monitor renal function. Monitor electrolytes. Supplement as necessary. Hyperkalemia Calcium trending up [facility] Nephrology recs appreciated. On bicarb drip. CPAP while sleeping due to SWEETIE. Labs and imaging reviewed. Rest of plan as noted below Plan: CXR demonstrates mild pulmonary vascular congestion. Supplemental oxygen Titrate to keep O2 sats above 92%. Continue antibiotics Blood cultures show no growth for 48 hours MRSA negative WBC tapering down Monitor renal function. Monitor electrolytes. Supplement as necessary. Monitor ins and outs Hemodialysis per Nephrology OK to use home CPAP for SWEETIE. Smoking cessation discussed for greater than 10 minutes DVT prophylaxis. Prognosis: Poor given patient's multiple co-morbidities. Condition: Critical Rest of plan per hospitalist and other consultants. A total of 35 minutes of critical care time was spent reviewing the patient record, examining the patient, making a diagnostic and therapeutic plan, discussing this plan with the medical personnel, following up on diagnostic studies and following the patient for clinical stability excluding any and all procedures. At least 50% of this time was spent in direct, [id number] contact. Thank you, Dr. Clifton Hill, for allowing me to participate in this patient's care. Further recommendations will depend on the patient's clinical course. Please do not hesitate to contact me if you have any questions or concerns. This medical document was created using an electronic medical record system with [employer] dictation system. Although these documentations are being carefully reviewed, there may still be some phonetic and typographical changes. The errors are purely typographical, due to imperfection on the software program, and do not reflect any compromise in the patient's medical care. Plan discussed with: Other (ZUHAIR Diaz) Critical Care Time(min): 35 SHERRY DAVIS MD Apr 24, 2024 21:29
[2024-04-24] MEDS: MELATONIN 5 MG TAB PO ONE (22:53)
[2024-04-24] MEDS: ACETAMINOPHEN 500 MG TAB or CAP PO PRN (22:55)
[2024-04-25] VITALS (39 sets, daily range): BP systolic 118–177; BP diastolic 61–91; PULSE 77–109; RESP 11–25; TEMP 98.1–98.4; O2SAT 89–99
[2024-04-25 04:17] LABS: Hematocrit 39.3 % (41.0-53.0); Hemoglobin 13.2 g/dL (13.5-17.5); Mean Corpuscular Hemoglobin 28.7 pg (28.0-32.0); Mean Corpuscular Hgb Conc. 33.6 g/dL (32.0-36.0); Mean Corpuscular Volume 85.4 fL (80.0-100.0); Platelet Count (auto) 302 10^3/uL (140-450); Red Cell Distribution Width 12.9 % (11.8-14.3); White Blood Cell 11.8 10^3/uL (4.4-10.8)
[2024-04-25 04:21] LABS: Band Neutrophils % (manual) 0; Basophils % (manual) 0 (0.0-2.0); Blast Cells 0; Metamyelocytes % 0; Myelocytes % 0; Promyelocytes % 0; Reactive Lymphocytes 0
[2024-04-25 08:53] LABS: Eosinophils % (manual) 2 (0-7); Lymphocytes % (manual) 6 (10.0-50.0); Monocytes % (manual) 8 (0-12); Platelet Estimate Adequate
[2024-04-25 09:41] LABS: Alkaline Phosphatase 47 U/L (46-116); Anion Gap 18 (5-15); BUN/Creatinine Ratio 10.2 (10.0-20.0); Carbon Dioxide 22 mmol/L (20-31); Glucose 79 mg/dL (74-106)
[2024-04-25 09:42] LABS: Albumin 3.2 g/dL (3.2-4.8); Bilirubin, Total 0.5 mg/dL (0.2-1.0)
[2024-04-25 09:43] LABS: Alanine Aminotransferase 635 U/L (7-40); Chloride 92 mmol/L (98-107); Sodium 132 mmol/L (136-145); Total Protein 5.5 g/dL (5.7-8.2)
[2024-04-25 09:46] LABS: Blood Urea Nitrogen 122 mg/dL (9-23); Calcium 5.9 mg/dL (8.7-10.4); Potassium 5.6 mmol/L (3.5-5.1)
[2024-04-25] MEDS: amLODIPine BESYLATE 5 MG TAB PO SCH (10:00)
[2024-04-25 10:12] LABS: Aspartate Aminotransferase 1864 U/L (13-40)
[2024-04-25] MEDS: ALBUTEROL SULF 2.5 MG/0.5ML(0.5%) NEB SOLN NEB ONE (10:13)
[2024-04-25] MEDS: DEXTROSE (50%) 50ML SYRG IV ONE (10:13)
[2024-04-25] MEDS: SODIUM ZIRCONIUM CYCL 10 GM PAK PO ONE (10:14)
[2024-04-25] MEDS: InsuLIN REG 1unit/0.01ml Soln (100units/ml) IV ONE (10:15)
[2024-04-25] MEDS: fentaNYL CITRATE 100 MCG/2 ML VL IV ONE (13:15)
[2024-04-25] MEDS: MIDAZOLAM HCL 2MG/2ML 2ml VIAL (1mg/ml) IV ONE (13:15)
[2024-04-25] MEDS: MIDAZOLAM HCL 2MG/2ML 2ml VIAL (1mg/ml) ONE (13:19)
[2024-04-25] MEDS: fentaNYL CITRATE 100 MCG/2 ML VL ONE (13:19)
[2024-04-25] MEDS ORDERED: SODIUM CHL 0.9% 1000 ML BAG XX ONE (13:30)
--- NOTE | 2024-04-25 14:14 | DVH ---
US US GUIDANCE FOR NEEDLE PLACEME, HISTORY: NONTARGETED RENAL BX PROCEDURE: Informed consent was obtained. Limited ultrasound of the left kidney was obtained. The ov erlying skin was prepped with chlorhexidine which was allowed to dry and draped in the usual sterile fashion. Time out was performed. The skin and soft tissue were infiltrated with 1% lidocaine, and IV sedation was administered. Under real-time ultrasound guidance, 1 biopsy specimen was obtained using Biopince 18 gauge core biopsy needle; and 10 minutes of pressure was held. Post biopsy scan was perfo rmed. No immediate complication was noted. SEDATION: Dr. Shanti Mishra was personally responsible for the administration of moderate sedation during the procedure performed, including the use of an independent trained observer who had no other duties during the procedure. The drugs utilized were IV fentanyl and versed (see nursing log for details). The total time of supervision by the attending physician was approximately 30 minutes. FINDINGS: Limited intraprocedural ultrasound demonstrates biopsy needle within the lower/mid renal co rtex of left kidney. No significant post procedural hematoma is noted. IMPRESSION: Ultrasound biopsy of the left kidney. Pathology results pending.
--- NOTE | 2024-04-25 15:12 | DVHPN2 ---
Progress Note Date Seen: Apr 25, 2024 Medical Necessity Reason Pt with a Central, PICC or Fol: Yes The following are medically ne: Lopez Catheter Reason for lopez catheter: Strict I&O Subjective Patient reports: No new complaints Other Systems: Patient seen and examined by myself today in f/u Patient examined on HD, BP stable Objective vital signs Vital Sign Date Time Temp Pulse Resp B/P (MAP) Pulse Ox O2 Delivery O2 Flow Rate FiO2 04/25/24 13:01 101 25 177/74 (108) 94 04/25/24 12:00 98.4 98.4 04/25/24 10:13 Nasal Cannula* 2 28 Total Intake and Output 04/24/24 04/24/24 04/25/24 15:00 23:00 07:00 Intake Total 1450 ml 1440 ml 1645 ml Output Total 100 ml 332 ml Balance 1450 ml 1340 ml 1313 ml medications Current Medications Medications Dose Ordered Sig/Drew Route Start Time Stop Time Status Last Admin Dose Admin Acetaminophen 500 mg Q4HPRN PRN PO 04/20/24 18:30 04/24/24 22:55 500 MG Acetaminophen/ Hydrocodone Bitart 1 tab Q6HPRN PRN PO 04/20/24 18:30 04/23/24 20:38 1 TAB Morphine Sulfate 1 mg Q4HPRN PRN IV 04/20/24 18:30 04/23/24 05:32 1 MG Ceftriaxone Sodium 50 ml @ 100 mls/hr DAILY@09 IV 04/21/24 09:00 04/25/24 08:28 100 MLS/HR Calcium Acetate 2,001 mg TIDWMEALS PO 04/21/24 12:00 04/25/24 12:42 2,001 MG Ondansetron HCl 4 mg Q4HPRN PRN IV 04/21/24 14:15 04/24/24 18:45 4 MG Amlodipine Besylate 10 mg DAILY PO 04/25/24 08:45 04/25/24 10:13 10 MG Examination: LUNGS:Normal, CVS:Normal, MSK:Normal laboratory and microbiology Laboratory Tests 04/25/24 08:56 04/25/24 03:05 Test 04/25/24 08:56 Range/Units Serum Glucose 79 74-106 mg/dL Microbiology Date/Time Source Procedure Growth Status 04/22/24 20:00 Nose MRSA Screen - Final Complete 04/20/24 19:10 Blood Blood Culture - Preliminary NO GROWTH AFTER 72 HOURS OF INCUBATION. Resulted Problem List/Assessment/Plan Problem List/Assessment/Plan Acute kidney injury likely secondary to postinfectious GN, requiring intermittent HD Strep pharyngitis Hyperkalemia Metabolic acidosis Hypocalcemia Hyperphosphatemia Hyperkalemia Hyperuricemia REC: Continue with UF 2-3 L as tolerated HD again tomorrow Calcium accetate 2,001 mg po TIDWM Add allopurinol 100 mg po q day d/c IVF Renal diet Kidney biopsy today Will continue to follow Plan discussed with: Patient My Orders My Orders Orders - CHRIS JACOBSEN MD Procedure Category Date Status Time Hemodialysis Orders ORDERS 04/25/24 Transmitted 13:22 Dietary Evaluation Review Comments: 1. Follow Renal Stardard, 2GNa 3K Low phos diet regimen as long as pt is on HD. 2. Provide Renal specific-60g diet with protein restriction at 60 g if pt does not have routine HD treatments. 3. Offer cold food as pt's appetite is poor due to uremic symptoms. Expected Outcomes/Goals: Gradual weight loss, improved CHRIS JACOBSEN MD Apr 25, 2024 15:12
[2024-04-25] MEDS: ALLOPURINOL 100 MG TAB PO SCH (15:15)
[2024-04-25] MEDS: ALBUMIN 25% 100 ML IV ONE (18:00)
--- NOTE | 2024-04-25 20:30 | DVHPNRES ---
Progress Note Date Seen: Apr 25, 2024 Resident Creating Document: FLORIAN DIAZ RESIDENT Medical Necessity Reason Pt with a Central, PICC or Fol: Yes The following are medically ne: Lopez Catheter Reason for lopez catheter: Strict I&O Subjective Review of Systems This is a 28-year-old obese male patient no relevant past medical history presented to the ER with a chief complaint of generalized weakness, fatigue and body aches for the past 1 week. He reports feeling feverish, productive cough with yellow sputum, body aches and weakness for the past 1 week for which he visited urgent care and was diagnosed with a strep throat and influenza infection. Patient received antibiotics and was taking them for the past couple of days, thinks it was amoxicillin but does not remember for sure. He says that he has been getting weak progressively associated with low appetite and generalized muscle ache for the past couple of days. Also reports abdominal heaviness. He says that his fever productive cough has been resolved. Patient's son was also diagnosed with strep throat infection recently. Patient denies chest pain, shortness of breaths, recent falls or blurry vision, nausea or vomiting, dysuria constipation or diarrhea. Past medical history: Unremarkable Family history:Mom at the age of 49 - had cancer, details unknown. Mother also had CHF.. Social history: Lives with and son, uses cigar occasionally, denies smoking. Drinks socially. 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 04/21 - Patient seen and examined at the bedside. Reports no shortness of breath, chest pain or palpitations. Telemetry reviewed, shows intermittent tachycardia which is sinus and rate is up to 150s to 170s beats per minute. 2 g IV calcium administered given the hyperkalemia with EKG changes of peaked T- waves. Nephrology consulted 04/22 - patient seen and examined at bedside. Reports generalized weakness, urine output decreased. Patient is oliguric, making 10 mL of dark urine. Patient received dextrose with insulin, Lokelma in the a.m.. Repeat potassium 5.6. Nephrology recommended dialysis. Patient undergone hemodialysis today. Dialysis catheter inserted. Patient transferred to [facility]/ICU. Renal biopsy was 04/25. WBC 16. Chest x-ray shows increased pulmonary vascular congestion. 04/25 - overnight Lopez was discontinued. Discontinued bicarb. Blood Culture negative. Creatinine trending up 12. Amlodipine 10 mg daily. PT eval consulted Objective vital signs Vital Sign Date Time Temp Pulse Resp B/P (MAP) Pulse Ox O2 Delivery O2 Flow Rate FiO2 04/25/24 16:41 98.2 97 18 138/78 (98) 95 98.2 04/25/24 10:13 Nasal Cannula* 2 28 Total Intake and Output 04/24/24 04/24/24 04/25/24 15:00 23:00 07:00 Intake Total 1450 ml 1440 ml 1645 ml Output Total 100 ml 332 ml Balance 1450 ml 1340 ml 1313 ml medications Current Medications Medications Dose Ordered Sig/Drew Route Start Time Stop Time Status Last Admin Dose Admin Acetaminophen 500 mg Q4HPRN PRN PO 04/20/24 18:30 04/24/24 22:55 500 MG Acetaminophen/ Hydrocodone Bitart 1 tab Q6HPRN PRN PO 04/20/24 18:30 04/23/24 20:38 1 TAB Morphine Sulfate 1 mg Q4HPRN PRN IV 04/20/24 18:30 04/23/24 05:32 1 MG Ceftriaxone Sodium 50 ml @ 100 mls/hr DAILY@09 IV 04/21/24 09:00 04/25/24 08:28 100 MLS/HR Calcium Acetate 2,001 mg TIDWMEALS PO 04/21/24 12:00 04/25/24 12:42 2,001 MG Ondansetron HCl 4 mg Q4HPRN PRN IV 04/21/24 14:15 04/24/24 18:45 4 MG Amlodipine Besylate 10 mg DAILY PO 04/25/24 08:45 04/25/24 10:13 10 MG Allopurinol 100 mg DAILY PO 04/25/24 15:15 Examination Morbidly obese male patient lying in bed, in no acute distress General: Obese, afebrile, palor, mucosae are moist, sclera injection seen. T ongue has white scrape able lesions. Pharynx is erythematous Cardiovascular: Regular S1 and S2. No murmurs, gallops or rubs. No JVD elevation. 1+ pitting edema in the lower extremities Respiratory: Normal B/L air entry on room air. Clear lung sounds on auscultation Abdomen: Soft, nontender, nondistended, normoactive bowel sounds, no rebound tenderness, no organomegaly, no masses Genitourinary: 30ml dark nelly urine MSK/skin: Mobilizes 4 limbs. Skin is dry and warm Neurological: No motor, no sensitive deficits, normal speech. Pupils are isocoric and reactive. Psych/Mental Status: A/Ox4 laboratory and microbiology Laboratory Tests 04/25/24 08:56 04/25/24 03:05 Test 04/25/24 08:56 Range/Units Serum Glucose 79 74-106 mg/dL Microbiology Date/Time Source Procedure Growth Status 04/22/24 20:00 Nose MRSA Screen - Final Complete 04/20/24 19:10 Blood Blood Culture - Final NO GROWTH AFTER 5 DAYS OF INCUBATION. Complete Labs and/or images reviewed: Labs reviewed by me, Image(s) reviewed by me Problem List/Assessment/Plan Problem List/Assessment/Plan SIRS secondary to strep throat/rhabdomyolysis and influenza infection Strep pharyngitis WBC elevated at 15 with neutrophilic predominance Pending blood culture, lactic acid, throat culture Positive rapid strep throat Started IV ceftriaxone 04/20 Started acetaminophen q.4 p.r.n. WBC trending down Prolonged QTc secondary to hypocalcemia Avoid QTc prolonging agents Anion gap Metabolic acidosis Acute renal failure, requiring hemodialysis likely secondary to rhabdomyolysis versus PSGN status post renal biopsy 04/25 Secondary hyper parathyroidism Vitamin-D deficiency Symptomatic Hypocalcemia and hyperphosphatemia Hyponatremia Elevated AST/ALT due to rhabdomyolysis IV NS 125 cc/hour Urine protein, creatinine 2.5 Nephrology consulted - renal biopsy completed 04/25. Started calcium acetate 2001 mg PO TID 04/21 Nephrology started hemodialysis 04/22, 04/23, 04/25 CK greater than 7800 Renal ultrasound unremarkable C3, C4, RPR unremarkable Hepatitis-B and C negative Urine protein/creatinine ratio 2.5 Sodium bicarbonate 150 mL/hour UA shows 3+ blood and only 2 RBCs Urology-started allopurinol 100 mg p.o. daily Hypertension Amlodipine 10 mg daily Generalized weakness due to Hyperkalemia with EKG changes 2 g IV calcium administered 04/21 along with insulin, dextrose, Lokelma Potassium improved to 4.8 Rule out PE/DVT V/Q scan shows low probability for PE Lower extremity Doppler is negative 1 dose of Lovenox 150 mg sc administered by the ER Right IJ CVC placed on 04/22 Diet renal PT consulted Plan discussed with patient in which all questions have been answered Goals of care have been discussed with the patient for more than 20 minutes, full code status Case discussed with Dr. Fuller. Patient downgraded. critical care time 41 mins Plan discussed with: Patient My Orders My Orders Orders - FLORIAN DIAZ Procedure Category Date Status Time Amlodipine Tablet PHA 04/25/24 In Process (Norvasc Tablet) 08:45 Us Guidance For US 04/25/24 Resulted Needle Placeme Dietary Evaluation Review Comments: 1. Follow Renal Stardard, 2GNa 3K Low phos diet regimen as long as pt is on HD. 2. Provide Renal specific-60g diet with protein restriction at 60 g if pt does not have routine HD treatments. 3. Offer cold food as pt's appetite is poor due to uremic symptoms. Expected Outcomes/Goals: Gradual weight loss, improved Date of Service: Apr 25, 2024 Billing Provider: GEM FULLER MD Common Visit Codes: [id number] CARE 30-74 MIN FLORIAN DIAZ Apr 25, 2024 20:30 GEM FULLER MD Apr 26, 2024 16:14
[2024-04-26] VITALS (10 sets, daily range): BP systolic 133–149; BP diastolic 68–89; PULSE 72–98; RESP 17–22; TEMP 97.9–98.9; O2SAT 91–98
[2024-04-26 06:53] LABS: Hematocrit 37.8 % (41.0-53.0); Hemoglobin 12.9 g/dL (13.5-17.5); Mean Corpuscular Hemoglobin 29.1 pg (28.0-32.0); Mean Corpuscular Hgb Conc. 34.2 g/dL (32.0-36.0); Mean Corpuscular Volume 85.2 fL (80.0-100.0); Platelet Count (auto) 301 10^3/uL (140-450); Red Blood Cells 4.44 10^6/uL (4.5-5.90); Red Cell Distribution Width 12.9 % (11.8-14.3); White Blood Cell 10.3 10^3/uL (4.4-10.8)
[2024-04-26] MEDS ORDERED: SODIUM CHL 0.9% 1000 ML BAG XX ONE (07:00)
[2024-04-26 07:11] LABS: Band Neutrophils % (manual) 0; Basophils % (manual) 0 (0.0-2.0); Blast Cells 0; Eosinophils % (manual) 0 (0-7); Metamyelocytes % 0; Myelocytes % 0; Promyelocytes % 0; Reactive Lymphocytes 0
[2024-04-26 07:14] LABS: Albumin 3.4 g/dL (3.2-4.8); Alkaline Phosphatase 50 U/L (46-116); Anion Gap 17 (5-15); BUN/Creatinine Ratio 9.6 (10.0-20.0); Bilirubin, Total 0.5 mg/dL (0.2-1.0); Carbon Dioxide 26 mmol/L (20-31); Glucose 88 mg/dL (74-106); Magnesium 2.6 mg/dL (1.6-2.6); Potassium 4.5 mmol/L (3.5-5.1); Sodium 137 mmol/L (136-145)
[2024-04-26 07:37] LABS: Alanine Aminotransferase 504 U/L (7-40); Aspartate Aminotransferase 1061 U/L (13-40); Calcium 6.8 mg/dL (8.7-10.4); Chloride 94 mmol/L (98-107); Creatine Kinase IFCC > 7800 U/L (46-171); Total Protein 5.6 g/dL (5.7-8.2)
[2024-04-26 07:39] LABS: Blood Urea Nitrogen 103 mg/dL (9-23)
--- NOTE | 2024-04-26 08:39 | MEDREC ---
[facility] ASP Intervention Section I [facility] ASP Intervention: Deescalate AB based on CS (WBC IN NORMAL RANGE - AFEBRILE - PLEASE CONSIDER DE-ESCALATION TO A PO ANTIBIOTIC (PENICILLIN VK = PREFERRED AGENT FOR STREP THROAT A)), IV to PO conversion FERNANDO GRIFFIN PHARMACIST Apr 26, 2024 08:39
[2024-04-26 08:59] LABS: Lymphocytes % (manual) 8 (10.0-50.0); Monocytes % (manual) 8 (0-12); Platelet Estimate Adequate; Smudge Cells 1 /100 WBC
--- NOTE | 2024-04-26 11:24 | DVHPN2 ---
Progress Note Date Seen: Apr 26, 2024 Medical Necessity Reason Pt with a Central, PICC or Fol: Yes The following are medically ne: Lopez Catheter Reason for lopez catheter: Strict I&O Subjective Patient reports: No new complaints Other Systems: Patient seen and examined by myself today in follow-up Patient examined hemodialysis, blood pressure stable Objective vital signs Vital Sign Date Time Temp Pulse Resp B/P (MAP) Pulse Ox O2 Delivery O2 Flow Rate FiO2 04/26/24 08:47 97.9 94 20 138/84 (102) 95 97.9 04/26/24 07:44 Nasal Cannula* 2 28 Total Intake and Output 04/25/24 04/25/24 04/26/24 15:00 23:00 07:00 Intake Total 800 ml 400 ml Balance 800 ml 400 ml medications Current Medications Medications Dose Ordered Sig/Drew Route Start Time Stop Time Status Last Admin Dose Admin Acetaminophen 500 mg Q4HPRN PRN PO 04/20/24 18:30 04/26/24 08:40 500 MG Acetaminophen/ Hydrocodone Bitart 1 tab Q6HPRN PRN PO 04/20/24 18:30 04/23/24 20:38 1 TAB Morphine Sulfate 1 mg Q4HPRN PRN IV 04/20/24 18:30 04/23/24 05:32 1 MG Ceftriaxone Sodium 50 ml @ 100 mls/hr DAILY@09 IV 04/21/24 09:00 04/26/24 08:39 100 MLS/HR Calcium Acetate 2,001 mg TIDWMEALS PO 04/21/24 12:00 04/26/24 08:39 2,001 MG Ondansetron HCl 4 mg Q4HPRN PRN IV 04/21/24 14:15 04/24/24 18:45 4 MG Amlodipine Besylate 10 mg DAILY PO 04/25/24 08:45 04/26/24 08:40 10 MG Allopurinol 100 mg DAILY PO 04/25/24 15:15 04/26/24 08:40 100 MG Examination: LUNGS:Normal, CVS:Normal, MSK:Normal laboratory and microbiology Laboratory Tests 04/26/24 05:49 Test 04/26/24 05:49 Range/Units Serum Glucose 88 74-106 mg/dL Microbiology Date/Time Source Procedure Growth Status 04/22/24 20:00 Nose MRSA Screen - Final Complete 04/20/24 19:10 Blood Blood Culture - Final NO GROWTH AFTER 5 DAYS OF INCUBATION. 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 Follow Renal Stardard, 2GNa 3K Low phos diet regimen as long as pt is on HD. 2. Provide Renal specific-60g diet with protein restriction at 60 g if pt does not have routine HD treatments. 3. Offer cold food as pt's appetite is poor due to uremic symptoms. Expected Outcomes/Goals: Gradual weight loss, improved CHRIS JACOBSEN MD Apr 26, 2024 11:24
[2024-04-26] MEDS: HEPARIN SODIUM (PORCINE) 5000 UNITS/ML 1ML VIAL ONE (13:33)
[2024-04-26] MEDS: fentaNYL CITRATE 100 MCG/2 ML VL ONE (13:33)
[2024-04-26] MEDS: MIDAZOLAM HCL 2MG/2ML 2ml VIAL (1mg/ml) ONE (13:34)
[2024-04-26] MEDS: LIDOCAINE 2%HCL (LOCAL ANESTH.) INJ 20ML MDV ONE (13:35)
[2024-04-26] MEDS: ceFAZolin 1GM/50ML 50 ML IV ONE (14:15)
--- NOTE | 2024-04-26 14:52 | DVH ---
XY Insertion of Venous Cath, HISTORY: HD CATH PL PROCEDURE: Informed consent was obtained. The patient was placed supine on the interventional table. 1 gram of Ancef was given IV. A limited localization ultrasound of the right neck base was obtained. The right neck base and upper chest were prepped with chlorhexidine which was allowed to dry and drap ed in the usual sterile fashion. Time out was performed. IV sedation was administered. The skin and t he soft tissues were infiltrated with 1% Lidocaine. With real-time ultrasound guidance, the internal jugular vein was accessed with a micropuncture kit, and an image documenting patency was recorded to PACS. A subcutaneous tunneled tract was created from the right upper chest to the venotomy site. A 14 .5 [place] [address], 23 cm long hemodialysis catheter was advanced through the tunneled tract. Fluoroscopy was used to advance a guidewire through the internal jugular vein into the inferior vena cava. Following serial dilatation, a 15 Martiniquais peel-away sheath was introduced, though which was adva nced the catheter into the right atrium. The catheter tip position was confirmed with fluoroscopy. Th ere was satisfactory flow in both lumens. The catheter lumens were flushed with saline and heparin wa s left indwelling in the catheter. A post-procedure image of the chest was obtained. The prior non tu nneled HD catheter was removed and manual pressure held to hemostasis. The neck incision site was melia sed with a Dermabond and dressed sterilely. The catheter was sutured at the skin surface and exit sit e also dressed sterilely. No immediate complication was identified. DAP 403 FLUOROSCOPY TIME: 1.4 minutes. SEDATION: Dr. Shanti Mishra was personally responsible for the administration of moderate sedation during the procedure performed, including the use of an independent trained observer who had no other duties during the procedure. The drugs utilized were IV fentanyl and versed (see nursing log for details). The total time of supervision by the attending physician was approximately 30 minutes. FINDINGS: Widely patent right IJV. Post procedure image demonstrates smooth course of the hemodialysi s catheter with the tip in the right atrium. IMPRESSION: Successful placement of 14.5 [place] [address], 23 cm long hemodialysis catheter through right real estate intern al jugular vein. Plan: Please contact IR for removal when no longer needed.
--- NOTE | 2024-04-26 18:25 | DVHPNRES ---
Progress Note Date Seen: Apr 26, 2024 Resident Creating Document: FLORIAN DIAZ RESIDENT Medical Necessity Reason Pt with a Central, PICC or Fol: Yes The following are medically ne: Central Line Reason for lopez catheter: Strict I&O Subjective Review of Systems This is a 28-year-old obese male patient no relevant past medical history presented to the ER with a chief complaint of generalized weakness, fatigue and body aches for the past 1 week. He reports feeling feverish, productive cough with yellow sputum, body aches and weakness for the past 1 week for which he visited urgent care and was diagnosed with a strep throat and influenza infection. Patient received antibiotics and was taking them for the past couple of days, thinks it was amoxicillin but does not remember for sure. He says that he has been getting weak progressively associated with low appetite and generalized muscle ache for the past couple of days. Also reports abdominal heaviness. He says that his fever productive cough has been resolved. Patient's son was also diagnosed with strep throat infection recently. Patient denies chest pain, shortness of breaths, recent falls or blurry vision, nausea or vomiting, dysuria constipation or diarrhea. Past medical history: Unremarkable Family history:Mom at the age of 49 - had cancer, details unknown. Mother also had CHF.. Social history: Lives with and son, uses cigar occasionally, denies smoking. Drinks socially. 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 04/21 - Patient seen and examined at the bedside. Reports no shortness of breath, chest pain or palpitations. Telemetry reviewed, shows intermittent tachycardia which is sinus and rate is up to 150s to 170s beats per minute. 2 g IV calcium administered given the hyperkalemia with EKG changes of peaked T- waves. Nephrology consulted 04/22 - patient seen and examined at bedside. Reports generalized weakness, urine output decreased. Patient is oliguric, making 10 mL of dark urine. Patient received dextrose with insulin, Lokelma in the a.m.. Repeat potassium 5.6. Nephrology recommended dialysis. Patient undergone hemodialysis today. Dialysis catheter inserted. Patient transferred to [facility]/ICU. Renal biopsy was 04/25. WBC 16. Chest x-ray shows increased pulmonary vascular congestion. 04/25 - overnight Lopez was discontinued. Discontinued bicarb. Blood Culture negative. Creatinine trending up 12. Amlodipine 10 mg daily. PT eval consulted 04/26 - patient is in urine, last urinated on 04/25 a.m.. CBC count and potassium trending down. Tunneled right IJ catheter placed. Objective vital signs Vital Sign Date Time Temp Pulse Resp B/P (MAP) Pulse Ox O2 Delivery O2 Flow Rate FiO2 04/26/24 16:59 98.0 96 17 133/69 (90) 92 98.0 04/26/24 07:44 Nasal Cannula* 2 28 Total Intake and Output 04/25/24 04/25/24 04/26/24 15:00 23:00 07:00 Intake Total 800 ml 400 ml Balance 800 ml 400 ml medications Current Medications Medications Dose Ordered Sig/Drew Route Start Time Stop Time Status Last Admin Dose Admin Acetaminophen 500 mg Q4HPRN PRN PO 04/20/24 18:30 04/26/24 08:40 500 MG Acetaminophen/ Hydrocodone Bitart 1 tab Q6HPRN PRN PO 04/20/24 18:30 04/23/24 20:38 1 TAB Morphine Sulfate 1 mg Q4HPRN PRN IV 04/20/24 18:30 04/23/24 05:32 1 MG Ceftriaxone Sodium 50 ml @ 100 mls/hr DAILY@09 IV 04/21/24 09:00 04/26/24 08:39 100 MLS/HR Calcium Acetate 2,001 mg TIDWMEALS PO 04/21/24 12:00 04/26/24 18:07 2,001 MG Ondansetron HCl 4 mg Q4HPRN PRN IV 04/21/24 14:15 04/24/24 18:45 4 MG Amlodipine Besylate 10 mg DAILY PO 04/25/24 08:45 04/26/24 08:40 10 MG Allopurinol 100 mg DAILY PO 04/25/24 15:15 04/26/24 08:40 100 MG Examination Morbidly obese male patient lying in bed, in no acute distress General: Obese, afebrile, palor, mucosae are moist, sclera injection seen. T ongue has white scrape able lesions. Pharynx is erythematous Cardiovascular: Regular S1 and S2. No murmurs, gallops or rubs. No JVD elevation. 1+ pitting edema in the lower extremities Respiratory: Normal B/L air entry on room air. Clear lung sounds on auscultation Abdomen: Soft, nontender, nondistended, normoactive bowel sounds, no rebound tenderness, no organomegaly, no masses. Left flank renal biopsy site is dry and clean. Genitourinary: 0ml urine MSK/skin: Mobilizes 4 limbs. Skin is dry and warm Neurological: No motor, no sensitive deficits, normal speech. Pupils are isocoric and reactive. Psych/Mental Status: A/Ox4 laboratory and microbiology Laboratory Tests 04/26/24 05:49 Test 04/26/24 05:49 Range/Units Serum Glucose 88 74-106 mg/dL Microbiology Date/Time Source Procedure Growth Status 04/22/24 20:00 Nose MRSA Screen - Final Complete 04/20/24 19:10 Blood Blood Culture - Final NO GROWTH AFTER 5 DAYS OF INCUBATION. Complete Labs and/or images reviewed: Labs reviewed by me, Image(s) reviewed by me Problem List/Assessment/Plan Problem List/Assessment/Plan SIRS secondary to strep throat/rhabdomyolysis and influenza infection Strep pharyngitis WBC elevated at 15 with neutrophilic predominance Pending blood culture, lactic acid, throat culture Positive rapid strep throat Started IV ceftriaxone 04/20 Started acetaminophen q.4 p.r.n. WBC trending down Prolonged QTc secondary to hypocalcemia Avoid QTc prolonging agents Anion gap Metabolic acidosis Acute renal failure, requiring hemodialysis likely secondary to rhabdomyolysis versus PSGN status post renal biopsy 04/25 Secondary hyper parathyroidism Vitamin-D deficiency Symptomatic Hypocalcemia and hyperphosphatemia Hyponatremia Elevated AST/ALT due to rhabdomyolysis DC IV NS 125 cc/hour Urine protein, creatinine 2.5 Nephrology consulted - renal biopsy completed 04/25. Started calcium acetate 2001 mg PO TID 04/21. Add allopurinol 100 mg po q day Nephrology started hemodialysis 04/22, 04/23, 04/25 CK greater than 7800 Renal ultrasound unremarkable C3, C4, RPR unremarkable Hepatitis-B and C negative Urine protein/creatinine ratio 2.5 DC Sodium bicarbonate 150 mL/hour UA shows 3+ blood and only 2 RBCs Urology-started allopurinol 100 mg p.o. 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 Fuller. Plan discussed with: Patient, Spouse (The bedside) My Orders My Orders Orders - FLORIAN DIAZ Procedure Category Date Status Time Insertion Of Venous XY 04/26/24 Resulted Cath 14:21 Dietary Evaluation Review Comments: 1. Follow Renal Stardard, 2GNa 3K Low phos diet regimen as long as pt is on HD. 2. Provide Renal specific-60g diet with protein restriction at 60 g if pt does not have routine HD treatments. 3. Offer cold food as pt's appetite is poor due to uremic symptoms. Expected Outcomes/Goals: Gradual weight loss, improved Date of Service: Apr 26, 2024 Billing Provider: GEM FULLER MD Common Visit Codes: 25626-[id number] INP/OBS CARE(HIGH) FLORIAN DIAZ Apr 26, 2024 18:25 GEM FULLER MD Apr 27, 2024 15:50
[2024-04-27 01:00] VITALS: BP 158/80; PULSE 100; RESP 20; TEMP 98.8; O2SAT 98
[2024-04-27 05:00] VITALS: BP 142/70; PULSE 101; RESP 20; TEMP 98.6; O2SAT 100
[2024-04-27 06:37] LABS: Basophils # (auto) 0.1 10 ^3/uL (0-0.2); Basophils % (auto) 0.5 % (0.0-2.0); Eosinophils # (auto) 0.2 10 ^3/uL (0-0.8); Eosinophils % (auto) 2.2 % (0.0-7.0); Hemoglobin 12.9 g/dL (13.5-17.5); Lymphocytes # (auto) 0.8 10 ^3/uL (0.4-5.4); Lymphocytes % (auto) 7.6 % (10.0-50.0); Mean Corpuscular Hemoglobin 29.2 pg (28.0-32.0); Mean Corpuscular Volume 85.9 fL (80.0-100.0); Monocytes # (auto) 0.7 10 ^3/uL (0-1.3); Monocytes % (auto) 6.8 % (0.0-12.0); Neutrophils # (auto) 8.8 10 ^3/uL (1.6-8.6); Neutrophils % (auto) 82.9 % (37.0-80.0); Platelet Count (auto) 304 10^3/uL (140-450); Red Blood Cells 4.43 10^6/uL (4.5-5.90); Red Cell Distribution Width 13.2 % (11.8-14.3); White Blood Cell 10.6 10^3/uL (4.4-10.8)
--- NOTE | 2024-04-27 06:51 | DVH ---
CHEST RADIOGRAPH Indication: Shortness of breath Technique: Single frontal view of the chest was obtained Comparison: XY CHEST XRAY 1 VIEW on DOS: 04/24/24, XY CHEST PORTABLE on DOS: 04/22/24, XY CHEST MANNY BLE on DOS: 04/22/24 IMPRESSION: The heart is enlarged. Right dialysis catheter tip in the superior vena cava. Mild pulmonary vascula r congestion. No focal airspace opacity, effusion, or pneumothorax.
[2024-04-27 07:06] LABS: Albumin 3.3 g/dL (3.2-4.8); Alkaline Phosphatase 49 U/L (46-116); Anion Gap 14 (5-15); BUN/Creatinine Ratio 8.7 (10.0-20.0); Carbon Dioxide 25 mmol/L (20-31); Glucose 86 mg/dL (74-106); Magnesium 2.5 mg/dL (1.6-2.6); Potassium 4.3 mmol/L (3.5-5.1); Sodium 136 mmol/L (136-145)
[2024-04-27 07:07] LABS: Bilirubin, Total 0.4 mg/dL (0.2-1.0)
[2024-04-27 07:33] LABS: Chloride 97 mmol/L (98-107)
[2024-04-27 07:34] LABS: Alanine Aminotransferase 383 U/L (7-40); Aspartate Aminotransferase 586 U/L (13-40); Calcium 8.1 mg/dL (8.7-10.4); Phosphorus 7.1 mg/dL (2.4-5.1); Total Protein 5.6 g/dL (5.7-8.2)
[2024-04-27 07:35] LABS: Blood Urea Nitrogen 87 mg/dL (9-23)
[2024-04-27 09:00] VITALS: BP 168/78; PULSE 97; RESP 18; TEMP 98.7; O2SAT 95
--- NOTE | 2024-04-27 09:11 | DVHPN2 ---
Progress Note Date Seen: Apr 27, 2024 Medical Necessity Reason Pt with a Central, PICC or Fol: Yes The following are medically ne: Central Line Reason for lopez catheter: Strict I&O Subjective Patient reports: Other (tolerated HD yesterday) Review of Systems: HEENT:Abnormal Objective vital signs Vital Sign Date Time Temp Pulse Resp B/P (MAP) Pulse Ox O2 Delivery O2 Flow Rate FiO2 04/27/24 08:16 168/78 04/27/24 07:53 Nasal Cannula* 2 28 04/27/24 05:00 98.6 101 20 100 98.6 Total Intake and Output 04/26/24 04/26/24 04/27/24 15:00 23:00 07:00 Intake Total 50 ml Balance 50 ml medications Current Medications Medications Dose Ordered Sig/Drew Route Start Time Stop Time Status Last Admin Dose Admin Acetaminophen 500 mg Q4HPRN PRN PO 04/20/24 18:30 04/26/24 08:40 500 MG Acetaminophen/ Hydrocodone Bitart 1 tab Q6HPRN PRN PO 04/20/24 18:30 04/23/24 20:38 1 TAB Morphine Sulfate 1 mg Q4HPRN PRN IV 04/20/24 18:30 04/23/24 05:32 1 MG Ceftriaxone Sodium 50 ml @ 100 mls/hr DAILY@09 IV 04/21/24 09:00 04/27/24 08:16 100 MLS/HR Calcium Acetate 2,001 mg TIDWMEALS PO 04/21/24 12:00 04/27/24 08:15 2,001 MG Ondansetron HCl 4 mg Q4HPRN PRN IV 04/21/24 14:15 04/24/24 18:45 4 MG Amlodipine Besylate 10 mg DAILY PO 04/25/24 08:45 04/27/24 08:16 10 MG Allopurinol 100 mg DAILY PO 04/25/24 15:15 04/27/24 08:16 100 MG Examination: GENERAL:Normal, CVS:Normal, ABDOMEN:Normal laboratory and microbiology Laboratory Tests 04/27/24 05:31 Test 04/27/24 05:31 Range/Units Serum Glucose 86 74-106 mg/dL Microbiology Date/Time Source Procedure Growth Status 04/22/24 20:00 Nose MRSA Screen - Final Complete 04/20/24 19:10 Blood Blood Culture - Final NO GROWTH AFTER 5 DAYS OF INCUBATION. Complete Problem List/Assessment/Plan Problem List/Assessment/Plan Acute kidney injury due to GN infectious GN due to Strep hypertension hyperphoshatemia hyperuricemia rhabdomyolysis s/p kidney biopsy 04/25- pending path results HD on [facility] allopurinol calcium acetate w/ each meal renal diet HD chair time for acute outpatient dialysis repeat CPK tomorrow Plan discussed with: Patient Dietary Evaluation Review Comments: 1. Follow Renal Stardard, 2GNa 3K Low phos diet regimen as long as pt is on HD. 2. Provide Renal specific-60g diet with protein restriction at 60 g if pt does not have routine HD treatments. 3. Offer cold food as pt's appetite is poor due to uremic symptoms. Expected Outcomes/Goals: Gradual weight loss, improved BRAEDEN SWIFT MD Apr 27, 2024 09:11
[2024-04-27 13:00] VITALS: BP 143/80; PULSE 105; RESP 17; TEMP 98.4; O2SAT 94
--- NOTE | 2024-04-27 14:04 | ECG ---
[facility] Test Date: 2024-04-21 Test Time: 07:14:02 Pat Name: ALBERT BOOKER Department: Room: 0215T A Gender: M Double Needle Operator: ZBIGNIEW : 1995 Requested By: FLORIAN DIAZ Order Number: [id number] Reading MD: Barber Jean Measurements Intervals [place] Rate: 93 P: 41 NV: 166 QRS: 16 QRSD: 92 T: 31 QT: 414 QTc: 515 Interpretive Statements Sinus rhythm Borderline low voltage, extremity leads Prolonged QT interval Electronically Signed On 04-27-2024 20:34:34 PST by Barber Jean Please click the below link to view image of tracing.
--- NOTE | 2024-04-27 14:04 | ECG ---
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
--- NOTE | 2024-04-27 14:06 | ECG ---
[facility] Test Date: 2024-04-21 Test Time: 07:14:51 Pat Name: ALBERT BOOKER Department: Room: 0215T A Gender: M Rib Trim Separator: ZBIGNIEW : 1995 Requested By: FLORIAN DIAZ Order Number: [id number] Reading MD: Barber Jean Measurements Intervals [place] Rate: 89 P: 42 NE: 169 QRS: 8 QRSD: 112 T: 33 QT: 425 QTc: 518 Interpretive Statements Sinus rhythm Borderline intraventricular conduction delay Borderline low voltage, extremity leads Prolonged QT interval Electronically Signed On 04-27-2024 20:35:01 PST by Barber Jean Please click the below link to view image of tracing.
--- NOTE | 2024-04-27 14:08 | ECG ---
[facility] Test Date: 2024-04-21 Test Time: 08:16:59 Pat Name: ALBERT BOOKER Department: Room: 0215T A Gender: M Automotive Warranty Administrator: KHADIJAH : 1995 Requested By: FLORIAN DIAZ Order Number: [id number] Reading MD: Barber Jean Measurements Intervals [place] Rate: 87 P: 29 MS: 167 QRS: 1 QRSD: 113 T: 13 QT: 428 QTc: 515 Interpretive Statements Sinus rhythm Borderline intraventricular conduction delay Prolonged QT interval Electronically Signed On 04-27-2024 20:35:57 PST by Barber Jean Please click the below link to view image of tracing.
--- NOTE | 2024-04-27 14:09 | ECG ---
[facility] Test Date: 2024-04-21 Test Time: 08:18:06 Pat Name: ALBERT BOOKER Department: Room: 0215T A Gender: M Private Tutor: KHADIJAH : 1995 Requested By: ALLEY VAN Order Number: [id number] Reading MD: Barber Jean Measurements Intervals [place] Rate: 84 P: 31 DC: 169 QRS: 2 QRSD: 100 T: 12 QT: 435 QTc: 515 Interpretive Statements Sinus rhythm Prolonged QT interval Electronically Signed On 04-27-2024 20:36:01 PST by Barber Jean Please click the below link to view image of tracing.
--- NOTE | 2024-04-27 14:41 | ECG ---
[facility] Test Date: 2024-04-22 Test Time: 03:40:16 Pat Name: ALBERT BOOKER Department: Respiratoy Room: 0215T A Gender: M Field Education Director: VERONA : 1995 Requested By: FLORIAN DIAZ Order Number: [id number] Reading MD: Barber Jean Measurements Intervals [place] Rate: 91 P: 37 CO: 173 QRS: 17 QRSD: 109 T: 17 QT: 418 QTc: 515 Interpretive Statements Sinus rhythm Prolonged QT interval Electronically Signed On 04-27-2024 20:38:36 PST by Barber Jean Please click the below link to view image of tracing.
[2024-04-27 17:01] VITALS: BP 168/69; PULSE 98; RESP 16; TEMP 97.9; O2SAT 97
--- NOTE | 2024-04-27 18:35 | DVHPNRES ---
Progress Note Date Seen: Apr 27, 2024 Resident Creating Document: FLORIAN DIAZ RESIDENT Medical Necessity Reason Pt with a Central, PICC or Fol: Yes The following are medically ne: Central Line Reason for lopez catheter: Strict I&O Subjective Review of Systems This is a 28-year-old obese male patient no relevant past medical history presented to the ER with a chief complaint of generalized weakness, fatigue and body aches for the past 1 week. He reports feeling feverish, productive cough with yellow sputum, body aches and weakness for the past 1 week for which he visited urgent care and was diagnosed with a strep throat and influenza infection. Patient received antibiotics and was taking them for the past couple of days, thinks it was amoxicillin but does not remember for sure. He says that he has been getting weak progressively associated with low appetite and generalized muscle ache for the past couple of days. Also reports abdominal heaviness. He says that his fever productive cough has been resolved. Patient's son was also diagnosed with strep throat infection recently. Patient denies chest pain, shortness of breaths, recent falls or blurry vision, nausea or vomiting, dysuria constipation or diarrhea. Past medical history: Unremarkable Family history:Mom at the age of 49 - had cancer, details unknown. Mother also had CHF.. Social history: Lives with and son, uses cigar occasionally, denies smoking. Drinks socially. 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 04/21 - Patient seen and examined at the bedside. Reports no shortness of breath, chest pain or palpitations. Telemetry reviewed, shows intermittent tachycardia which is sinus and rate is up to 150s to 170s beats per minute. 2 g IV calcium administered given the hyperkalemia with EKG changes of peaked T- waves. Nephrology consulted 04/22 - patient seen and examined at bedside. Reports generalized weakness, urine output decreased. Patient is oliguric, making 10 mL of dark urine. Patient received dextrose with insulin, Lokelma in the a.m.. Repeat potassium 5.6. Nephrology recommended dialysis. Patient undergone hemodialysis today. Dialysis catheter inserted. Patient transferred to [facility]ICU. Renal biopsy was 04/25. WBC 16. Chest x-ray shows increased pulmonary vascular congestion. 04/25 - overnight Lopez was discontinued. Discontinued bicarb. Blood Culture negative. Creatinine trending up 12. Amlodipine 10 mg daily. PT eval consulted 04/26 - patient is in urine, last urinated on 04/25 a.m.. CBC count and potassium trending down. Tunneled right IJ catheter placed. 04/27 - patient seen and examined at the bedside. Patient urinated 150 cc of cola color urine. Reports feeling the same, generalized weakness. Appetite is improving. Hemodialysis tomorrow. Objective vital signs Vital Sign Date Time Temp Pulse Resp B/P (MAP) Pulse Ox O2 Delivery O2 Flow Rate FiO2 04/27/24 17:01 97.9 98 16 168/69 (102) 97 97.9 04/27/24 07:53 Nasal Cannula* 2 28 Total Intake and Output 04/26/24 04/26/24 04/27/24 15:00 23:00 07:00 Intake Total 50 ml Balance 50 ml medications Current Medications Medications Dose Ordered Sig/Drew Route Start Time Stop Time Status Last Admin Dose Admin Acetaminophen 500 mg Q4HPRN PRN PO 04/20/24 18:30 04/26/24 08:40 500 MG Acetaminophen/ Hydrocodone Bitart 1 tab Q6HPRN PRN PO 04/20/24 18:30 04/23/24 20:38 1 TAB Morphine Sulfate 1 mg Q4HPRN PRN IV 04/20/24 18:30 04/23/24 05:32 1 MG Ceftriaxone Sodium 50 ml @ 100 mls/hr DAILY@09 IV 04/21/24 09:00 04/27/24 08:16 100 MLS/HR Calcium Acetate 2,001 mg TIDWMEALS PO 04/21/24 12:00 04/27/24 18:05 2,001 MG Ondansetron HCl 4 mg Q4HPRN PRN IV 04/21/24 14:15 04/24/24 18:45 4 MG Amlodipine Besylate 10 mg DAILY PO 04/25/24 08:45 04/27/24 08:16 10 MG Allopurinol 100 mg DAILY PO 04/25/24 15:15 04/27/24 08:16 100 MG Examination Morbidly obese male patient lying in bed, in no acute distress General: Obese, afebrile, palor, mucosae are moist, sclera injection seen. T [place]gue has white scrape able lesions. Pharynx is erythematous Cardiovascular: Regular S1 and S2. No murmurs, gallops or rubs. No JVD elevation. 1+ pitting edema in the lower extremities Respiratory: Normal B/L air entry on room air. Clear lung sounds on auscultation Abdomen: Soft, nontender, nondistended, normoactive bowel sounds, no rebound tenderness, no organomegaly, no masses. Left flank renal biopsy site is dry and clean. Genitourinary: 150cc cola colored urine MSK/skin: Mobilizes 4 limbs. Skin is dry and warm Neurological: No motor, no sensitive deficits, normal speech. Pupils are isocoric and reactive. Psych/Mental Status: A/Ox4 laboratory and microbiology Laboratory Tests 04/27/24 05:31 Test 04/27/24 05:31 Range/Units Serum Glucose 86 74-106 mg/dL Microbiology Date/Time Source Procedure Growth Status 04/22/24 20:00 Nose MRSA Screen - Final Complete 04/20/24 19:10 Blood Blood Culture - Final NO GROWTH AFTER 5 DAYS OF INCUBATION. Complete Labs and/or images reviewed: Labs reviewed by me, Image(s) reviewed by me Problem List/Assessment/Plan Problem List/Assessment/Plan SIRS secondary to strep throat/rhabdomyolysis and influenza infection Strep pharyngitis WBC elevated at 15 with neutrophilic predominance Pending blood culture, lactic acid, throat culture Positive rapid strep throat Started IV ceftriaxone 04/20 Started acetaminophen q.4 p.r.n. WBC trending down Prolonged QTc secondary to hypocalcemia Avoid QTc prolonging agents Anion gap Metabolic acidosis Acute renal failure, requiring hemodialysis likely secondary to rhabdomyolysis versus PSGN status post renal biopsy 04/25 Secondary hyper parathyroidism Vitamin-D deficiency Symptomatic Hypocalcemia and hyperphosphatemia Hyponatremia Elevated AST/ALT due to rhabdomyolysis DC IV NS 125 cc/hour Urine protein, creatinine 2.5 Nephrology consulted - renal biopsy completed 04/25. Started calcium acetate 2001 mg PO TID 04/21. Add allopurinol 100 mg po q day Nephrology started hemodialysis 04/22, 04/23, 04/25 CK greater than 7800 Renal ultrasound unremarkable C3, C4, RPR unremarkable Hepatitis-B and C negative Urine protein/creatinine ratio 2.5 DC Sodium bicarbonate 150 mL/hour UA shows 3+ blood and only 2 RBCs Urology-started allopurinol 100 mg p.o. daily Hypertension Amlodipine 10 mg daily Generalized weakness due to Hyperkalemia with EKG changes 2 g IV calcium administered 04/21 along with insulin, dextrose, Lokelma Potassium improved to 4.8 Rule out PE/DVT V/Q scan shows low probability for PE Lower extremity Doppler is negative 1 dose of Lovenox 150 mg sc administered by the ER Right IJ tunnel cath placement 04/26 Diet renal PT consulted, road worker for outpatient hemodialysis chair time [facility] assisted dialysis Plan discussed with patient in which all questions have been answered Goals of care have been discussed with the patient for more than 20 minutes, full code status Case discussed with Dr. Fuller. Hemodialysis tomorrow. Plan discussed with: Patient, Spouse (At the bedside) Dietary Evaluation Review Comments: 1. Follow Renal Stardard, 2GNa 3K Low phos diet regimen as long as pt is on HD. 2. Provide Renal specific-60g diet with protein restriction at 60 g if pt does not have routine HD treatments. 3. Offer cold food as pt's appetite is poor due to uremic symptoms. Expected Outcomes/Goals: Gradual weight loss, improved Date of Service: Apr 27, 2024 Billing Provider: GEM FULLER MD Common Visit Codes: [id number] INP/OBS CARE(HIGH) FLORIAN DIAZ RESIDENT Apr 27, 2024 18:35 GEM FULLER MD Apr 28, 2024 10:24
[2024-04-27 21:00] VITALS: BP_SYST 176; BP_DIAS 8; BP_DIAS 82; PULSE 103; RESP 18; TEMP 98.1; O2SAT 90
[2024-04-28 01:00] VITALS: BP 159/82; PULSE 97; RESP 20; TEMP 98.2; O2SAT 93
[2024-04-28 05:00] VITALS: BP 127/79; PULSE 100; RESP 17; TEMP 98.4; O2SAT 91
[2024-04-28 06:54] LABS: Albumin 3.4 g/dL (3.2-4.8); Alkaline Phosphatase 53 U/L (46-116); Anion Gap 17 (5-15); BUN/Creatinine Ratio 10.2 (10.0-20.0); Calcium 8.8 mg/dL (8.7-10.4); Carbon Dioxide 24 mmol/L (20-31); Glucose 81 mg/dL (74-106); Potassium 4.4 mmol/L (3.5-5.1); Sodium 136 mmol/L (136-145)
[2024-04-28 06:55] LABS: Bilirubin, Total 0.4 mg/dL (0.2-1.0)
[2024-04-28] MEDS ORDERED: SODIUM CHL 0.9% 1000 ML BAG XX ONE (07:00)
[2024-04-28 07:08] LABS: Alanine Aminotransferase 285 U/L (7-40); Aspartate Aminotransferase 344 U/L (13-40); Chloride 95 mmol/L (98-107)
[2024-04-28 07:09] LABS: Creatine Kinase IFCC > 7800 U/L (46-171); Magnesium 2.7 mg/dL (1.6-2.6)
[2024-04-28 07:11] LABS: Blood Urea Nitrogen 123 mg/dL (9-23); Hemoglobin 14.1 g/dL (13.5-17.5); Mean Corpuscular Hemoglobin 28.8 pg (28.0-32.0); Mean Corpuscular Hgb Conc. 33.5 g/dL (32.0-36.0); Mean Corpuscular Volume 85.8 fL (80.0-100.0); Platelet Count (auto) 338 10^3/uL (140-450); Red Blood Cells 4.89 10^6/uL (4.5-5.90); Red Cell Distribution Width 12.9 % (11.8-14.3); White Blood Cell 13.3 10^3/uL (4.4-10.8)
[2024-04-28 07:20] LABS: Band Neutrophils % (manual) 0; Basophils % (manual) 0 (0.0-2.0); Blast Cells 0; Metamyelocytes % 0; Promyelocytes % 0; Reactive Lymphocytes 0
[2024-04-28 08:42] VITALS: BP 150/84; PULSE 99; RESP 17; TEMP 98; O2SAT 94
[2024-04-28 09:34] LABS: Eosinophils % (manual) 2 (0-7); Lymphocytes % (manual) 5 (10.0-50.0); Monocytes % (manual) 7 (0-12); Myelocytes % 1; Platelet Estimate Adequate
[2024-04-28 11:51] VITALS: BP 157/87; PULSE 95; RESP 17; TEMP 98.3; O2SAT 91
--- NOTE | 2024-04-28 11:53 | DVHPNRES ---
Progress Note Date Seen: Apr 28, 2024 Resident Creating Document: FLORIAN DIAZ RESIDENT Medical Necessity Reason Pt with a Central, PICC or Fol: Yes The following are medically ne: Central Line Reason for lopez catheter: Strict I&O Subjective Review of Systems This is a 28-year-old obese male patient no relevant past medical history presented to the ER with a chief complaint of generalized weakness, fatigue and body aches for the past 1 week. He reports feeling feverish, productive cough with yellow sputum, body aches and weakness for the past 1 week for which he visited urgent care and was diagnosed with a strep throat and influenza infection. Patient received antibiotics and was taking them for the past couple of days, thinks it was amoxicillin but does not remember for sure. He says that he has been getting weak progressively associated with low appetite and generalized muscle ache for the past couple of days. Also reports abdominal heaviness. He says that his fever productive cough has been resolved. Patient's son was also diagnosed with strep throat infection recently. Patient denies chest pain, shortness of breaths, recent falls or blurry vision, nausea or vomiting, dysuria constipation or diarrhea. Past medical history: Unremarkable Family history:Mom at the age of 49 - had cancer, details unknown. Mother also had CHF.. Social history: Lives with and son, uses cigar occasionally, denies smoking. Drinks socially. 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 04/21 - Patient seen and examined at the bedside. Reports no shortness of breath, chest pain or palpitations. Telemetry reviewed, shows intermittent tachycardia which is sinus and rate is up to 150s to 170s beats per minute. 2 g IV calcium administered given the hyperkalemia with EKG changes of peaked T- waves. Nephrology consulted 04/22 - patient seen and examined at bedside. Reports generalized weakness, urine output decreased. Patient is oliguric, making 10 mL of dark urine. Patient received dextrose with insulin, Lokelma in the a.m.. Repeat potassium 5.6. Nephrology recommended dialysis. Patient undergone hemodialysis today. Dialysis catheter inserted. Patient transferred to [facility]ICU. Renal biopsy was 04/25. WBC 16. Chest x-ray shows increased pulmonary vascular congestion. 04/25 - overnight Lopez was discontinued. Discontinued bicarb. Blood Culture negative. Creatinine trending up 12. Amlodipine 10 mg daily. PT eval consulted 04/26 - patient is in urine, last urinated on 04/25 a.m.. CBC count and potassium trending down. Tunneled right IJ catheter placed. 04/27 - patient seen and examined at the bedside. Patient urinated 150 cc of cola color urine. Reports feeling the same, generalized weakness. Appetite is improving. Hemodialysis tomorrow. 04/28 - patient seen and examined, urinated 120 cc of cola colored urine. BUN increased, creatinine up 12. Hemodialysis planned for today. Objective vital signs Vital Sign Date Time Temp Pulse Resp B/P (MAP) Pulse Ox O2 Delivery O2 Flow Rate FiO2 04/28/24 08:42 98.0 99 17 150/84 (106) 94 98.0 04/28/24 08:00 Room Air* 0 21 Total Intake and Output 04/27/24 04/27/24 04/28/24 15:00 23:00 07:00 Intake Total 50 ml 700 ml 800 ml Output Total 300 ml Balance 50 ml 400 ml 800 ml medications Current Medications Medications Dose Ordered Sig/Drew Route Start Time Stop Time Status Last Admin Dose Admin Acetaminophen 500 mg Q4HPRN PRN PO 04/20/24 18:30 04/26/24 08:40 500 MG Acetaminophen/ Hydrocodone Bitart 1 tab Q6HPRN PRN PO 04/20/24 18:30 04/28/24 08:33 1 TAB Morphine Sulfate 1 mg Q4HPRN PRN IV 04/20/24 18:30 04/23/24 05:32 1 MG Ceftriaxone Sodium 50 ml @ 100 mls/hr DAILY@09 IV 04/21/24 09:00 04/28/24 08:32 100 MLS/HR Calcium Acetate 2,001 mg TIDWMEALS PO 04/21/24 12:00 04/28/24 08:31 2,001 MG Ondansetron HCl 4 mg Q4HPRN PRN IV 04/21/24 14:15 04/24/24 18:45 4 MG Amlodipine Besylate 10 mg DAILY PO 04/25/24 08:45 04/27/24 08:16 10 MG Allopurinol 100 mg DAILY PO 04/25/24 15:15 04/28/24 08:32 100 MG Examination Morbidly obese male patient lying in bed, in no acute distress General: Obese, afebrile, palor, mucosae are moist, sclera injection seen. T [place] has white scrape able lesions. Pharynx is erythematous Cardiovascular: Regular S1 and S2. No murmurs, gallops or rubs. No JVD elevation. 1+ pitting edema in the lower extremities Respiratory: Normal B/L air entry on room air. Clear lung sounds on auscultation Abdomen: Soft, nontender, nondistended, normoactive bowel sounds, no rebound tenderness, no organomegaly, no masses. Left flank renal biopsy site is dry and clean. Genitourinary: 120cc cola colored urine MSK/skin: Mobilizes 4 limbs. Skin is dry and warm Neurological: No motor, no sensitive deficits, normal speech. Pupils are isocoric and reactive. Psych/Mental Status: A/Ox4 laboratory and microbiology Laboratory Tests 04/28/24 05:54 Test 04/28/24 05:54 Range/Units Serum Glucose 81 74-106 mg/dL Microbiology Date/Time Source Procedure Growth Status 04/22/24 20:00 Nose MRSA Screen - Final Complete 04/20/24 19:10 Blood Blood Culture - Final NO GROWTH AFTER 5 DAYS OF INCUBATION. Complete Labs and/or images reviewed: Labs reviewed by me, Image(s) reviewed by me Problem List/Assessment/Plan Problem List/Assessment/Plan SIRS secondary to strep throat/rhabdomyolysis and influenza infection Strep pharyngitis WBC elevated at 15 with neutrophilic predominance Pending blood culture, lactic acid, throat culture Positive rapid strep throat Started IV ceftriaxone 04/20 Started acetaminophen q.4 p.r.n. WBC up 13 Prolonged QTc secondary to hypocalcemia Avoid QTc prolonging agents Anion gap Metabolic acidosis Acute renal failure, requiring hemodialysis likely secondary to rhabdomyolysis versus PSGN status post renal biopsy 04/25 Secondary hyper parathyroidism Vitamin-D deficiency Symptomatic Hypocalcemia and hyperphosphatemia Hyponatremia Elevated AST/ALT due to rhabdomyolysis BUN increased to 123, creatinine increased to 12 DC IV NS 125 cc/hour Urine protein, creatinine 2.5 Nephrology consulted - renal biopsy completed 04/25. Started calcium acetate 2001 mg PO TID 04/21. Add allopurinol 100 mg po q day Nephrology started hemodialysis 04/22, 04/23, 04/25, 1 CK greater than 7800 Renal ultrasound unremarkable C3, C4, RPR unremarkable Hepatitis-B and C negative Urine protein/creatinine ratio 2.5 DC Sodium bicarbonate 150 mL/hour UA shows 3+ blood and only 2 RBCs Urology-started allopurinol 100 mg p.o. daily Hypertension Amlodipine 10 mg daily Generalized weakness due to Hyperkalemia with EKG changes 2 g IV calcium administered 04/21 along with insulin, dextrose, Lokelma Potassium improved to 4.8 Rule out PE/DVT V/Q scan shows low probability for PE Lower extremity Doppler is negative 1 dose of Lovenox 150 mg sc administered by the ER Right IJ tunnel cath placement 04/26 Diet renal PT consulted, bog worker for outpatient hemodialysis chair time at [facility] assisted dialysis Plan discussed with patient in which all questions have been answered Goals of care have been discussed with the patient for more than 20 minutes, full code status Case discussed with Dr. Fuller. Underwent hemodialysis today. Plan discussed with: Patient, Spouse (At the bedside) My Orders My Orders Orders - FLORIAN DIAZ Procedure Category Date Status Time Electrocardigram EKG 04/27/24 Resulted 13:55 Electrocardigram EKG 04/27/24 Resulted 13:55 Electrocardigram EKG 04/27/24 Resulted 13:56 Electrocardigram EKG 04/27/24 Resulted 14:23 Dietary Evaluation Review Comments: 1. Follow Renal Stardard, 2GNa 3K Low phos diet regimen as long as pt is on HD. 2. Provide Renal specific-60g diet with protein restriction at 60 g if pt does not have routine HD treatments. 3. Offer cold food as pt's appetite is poor due to uremic symptoms. Expected Outcomes/Goals: Gradual weight loss, improved Date of Service: Apr 28, 2024 Billing Provider: GEM FULLER MD Common Visit Codes: [id number] INP/OBS CARE(HIGH) Secondary Visit Codes: [id number] CARE PLAN 30 MINUTES FLORIAN DIAZ Apr 28, 2024 11:53 GEM FULLER MD May 01, 2024 11:07
[2024-04-28 15:00] VITALS: BP 150/87; PULSE 106; RESP 17; TEMP 98; O2SAT 98
[2024-04-28 21:00] VITALS: BP 144/72; PULSE 100; RESP 20; TEMP 98.1; O2SAT 95
[2024-04-29] VITALS (7 sets, daily range): BP systolic 105–165; BP diastolic 58–86; PULSE 90–99; RESP 17–89; TEMP 36.8; O2SAT 94–99
[2024-04-29 06:54] LABS: Hematocrit 39.3 % (41.0-53.0); Hemoglobin 13.2 g/dL (13.5-17.5); Mean Corpuscular Hemoglobin 29.1 pg (28.0-32.0); Mean Corpuscular Hgb Conc. 33.5 g/dL (32.0-36.0); Mean Corpuscular Volume 86.6 fL (80.0-100.0); Platelet Count (auto) 327 10^3/uL (140-450); Red Blood Cells 4.53 10^6/uL (4.5-5.90); Red Cell Distribution Width 13.2 % (11.8-14.3); White Blood Cell 16.1 10^3/uL (4.4-10.8)
[2024-04-29 06:58] LABS: Potassium 4.7 mmol/L (3.5-5.1); Sodium 137 mmol/L (136-145)
[2024-04-29 06:59] LABS: Anion Gap 17 (5-15); Calcium 8.7 mg/dL (8.7-10.4); Carbon Dioxide 23 mmol/L (20-31); Chloride 97 mmol/L (98-107)
[2024-04-29] MEDS ORDERED: SODIUM CHL 0.9% 1000 ML BAG XX ONE (07:00)
[2024-04-29 07:04] LABS: Glucose 79 mg/dL (74-106)
[2024-04-29 07:16] LABS: Band Neutrophils % (manual) 0; Basophils % (manual) 0 (0.0-2.0); Blast Cells 0; Promyelocytes % 0; Reactive Lymphocytes 0
[2024-04-29 07:23] LABS: Blood Urea Nitrogen 110 mg/dL (9-23)
[2024-04-29 07:24] LABS: Creatine Kinase IFCC > 7800 U/L (46-171)
[2024-04-29 09:30] LABS: Eosinophils % (manual) 3 (0-7); Lymphocytes % (manual) 5 (10.0-50.0); Metamyelocytes % 1; Monocytes % (manual) 6 (0-12); Myelocytes % 1; Platelet Estimate Adequate
--- NOTE | 2024-04-29 11:12 | DVHPN2 ---
Progress Note Date Seen: Apr 29, 2024 Medical Necessity Reason Pt with a Central, PICC or Fol: Yes The following are medically ne: Central Line Reason for lopez catheter: Strict I&O Subjective Patient reports: Feels better Objective vital signs Vital Sign Date Time Temp Pulse Resp B/P (MAP) Pulse Ox O2 Delivery O2 Flow Rate FiO2 04/29/24 08:49 97.9 91 20 135/86 (102) 94 97.9 04/29/24 07:53 Nasal Cannula* 2 28 Total Intake and Output 04/28/24 04/28/24 04/29/24 15:00 23:00 07:00 Intake Total 50 ml 900 ml Output Total 150 ml Balance 50 ml 750 ml medications Current Medications Medications Dose Ordered Sig/Drew Route Start Time Stop Time Status Last Admin Dose Admin Acetaminophen 500 mg Q4HPRN PRN PO 04/20/24 18:30 04/26/24 08:40 500 MG Acetaminophen/ Hydrocodone Bitart 1 tab Q6HPRN PRN PO 04/20/24 18:30 04/29/24 09:41 1 TAB Morphine Sulfate 1 mg Q4HPRN PRN IV 04/20/24 18:30 04/23/24 05:32 1 MG Ceftriaxone Sodium 50 ml @ 100 mls/hr DAILY@09 IV 04/21/24 09:00 04/29/24 09:33 100 MLS/HR Calcium Acetate 2,001 mg TIDWMEALS PO 04/21/24 12:00 04/29/24 09:33 2,001 MG Ondansetron HCl 4 mg Q4HPRN PRN IV 04/21/24 14:15 04/24/24 18:45 4 MG Amlodipine Besylate 10 mg DAILY PO 04/25/24 08:45 04/27/24 08:16 10 MG Allopurinol 100 mg DAILY PO 04/25/24 15:15 04/29/24 09:34 100 MG Examination: GENERAL:Normal, CVS:Normal, ABDOMEN:Normal laboratory and microbiology Laboratory Tests 04/29/24 05:40 Test 04/29/24 05:40 Range/Units Serum Glucose 79 74-106 mg/dL Microbiology Date/Time Source Procedure Growth Status 04/22/24 20:00 Nose MRSA Screen - Final Complete 04/20/24 19:10 Blood Blood Culture - Final NO GROWTH AFTER 5 DAYS OF INCUBATION. Complete Problem List/Assessment/Plan Problem List/Assessment/Plan Acute kidney injury due to GN infectious GN due to Strep hypertension hyperphoshatemia hyperuricemia rhabdomyolysis s/p kidney biopsy 04/25- pending path results HD today norvasc allopurinol calcium acetate w/ each meal renal diet HD chair time for acute outpatient dialysis accepted to [facility] for [facility] HD 1pm tomorrow Plan discussed with: Patient My Orders My Orders Orders - BRAEDEN SWIFT MD Procedure Category Date Status Time Hemodialysis Orders ORDERS 04/29/24 Transmitted 07:00 Dialysis Nursing ALHAJI 04/29/24 In Process Message 07:00 Document Fluid Input ALHAJI 04/29/24 In Process And Outpu 07:00 Dietary Evaluation Review Comments: 1. Follow Renal Stardard, 2GNa 3K Low phos diet regimen as long as pt is on HD. 2. Provide Renal specific-60g diet with protein restriction at 60 g if pt does not have routine HD treatments. 3. Offer cold food as pt's appetite is poor due to uremic symptoms. Expected Outcomes/Goals: Gradual weight loss, improved BRAEDEN SWIFT MD Apr 29, 2024 11:12
--- NOTE | 2024-04-29 14:14 | DVHDSRES ---
Discharge Summary Date of Admission Resident Creating Document: FLORIAN DIAZ RESIDENT Apr 20, 2024 at 18:26 Date of Discharge: Apr 29, 2024 Admitting Diagnosis Generalized weakness Labs/Diagnostic Data: Laboratory Results Test 04/29/24 05:40 04/28/24 05:54 04/27/24 05:31 04/26/24 05:49 White Blood Count 16.1 10^3/uL (4.4-10.8) Red Blood Count 4.53 10^6/uL (4.5-5.90) Hemoglobin 13.2 g/dL (13.5-17.5) Hematocrit 39.3 % (41.0-53.0) Mean Corpuscular Volume 86.6 fL (80.0-100.0) Mean Corpuscular Hemoglobin 29.1 pg (28.0-32.0) Mean Corpuscular Hemoglobin Concent 33.5 g/dL (32.0-36.0) Red Cell Distribution Width 13.2 % (11.8-14.3) Platelet Count 327 10^3/uL (140-450) Mean Platelet Volume 7.9 fL (6.9-10.8) Neutrophils (%) (Auto) % (37.0-80.0) Lymphocytes (%) (Auto) % (10.0-50.0) Monocytes (%) (Auto) % (0.0-12.0) Basophils (%) (Auto) % (0.0-2.0) Neutrophils # (Auto) 10 ^3/uL (1.6-8.6) Lymphocytes # (Auto) 10 ^3/uL (0.4-5.4) Monocytes # (Auto) 10 ^3/uL (0-1.3) Differential Total Cells Counted 100.0 (100) Neutrophils % (Manual) 84 (37.0-80.0) Band Neutrophils % (Manual) 0 Lymphocytes % (Manual) 5 (10.0-50.0) Monocytes % (Manual) 6 (0-12) Eosinophils % (Manual) 3 (0-7) Basophils % (Manual) 0 (0.0-2.0) Metamyelocytes % (manual) 1 Myelocytes % (Manual) 1 Promyelocytes % (Manual) 0 Blast Cells % (Manual) 0 Reactive Lymphocytes 0 Platelet Estimate Adequate Clumped Platelets None Sodium Level 137 mmol/L (136-145) Potassium Level 4.7 mmol/L (3.5-5.1) Chloride Level 97 mmol/L (98-107) Carbon Dioxide Level 23 mmol/L (20-31) Anion Gap 17 (5-15) Blood Urea Nitrogen 110 mg/dL (9-23) Creatinine 11.00 mg/dL (0.700-1.30) Glomerular Filtration Rate Calc 6 mL/min (>90) BUN/Creatinine Ratio 10.0 (10.0-20.0) Serum Glucose 79 mg/dL (74-106) Calcium Level 8.7 mg/dL (8.7-10.4) Creatine Kinase > 7800 U/L (46-171) Magnesium Level 2.7 mg/dL (1.6-2.6) Total Bilirubin 0.4 mg/dL (0.2-1.0) Aspartate Amino Transferase (AST) 344 U/L (13-40) Alanine Aminotransferase (ALT) 285 U/L (7-40) Alkaline Phosphatase 53 U/L (46-116) Total Protein 6.0 g/dL (5.7-8.2) Albumin 3.4 g/dL (3.2-4.8) Eosinophils (%) (Auto) 2.2 % (0.0-7.0) Eosinophils # (Auto) 0.2 10 ^3/uL (0-0.8) Basophils # (Auto) 0.1 10 ^3/uL (0-0.2) Nucleated Red Blood Cells 0.0 % Phosphorus Level 7.1 mg/dL (2.4-5.1) Smudge Cells 1 /100 WBC Test 04/25/24 10:14 04/24/24 03:09 04/23/24 03:26 04/21/24 15:19 POC Glucose 96 mg/dl (70-106) Uric Acid 12.9 mg/dL (3.7-9.2) Hepatitis B Surface Antigen Negative (Negative) Group A Streptococcus Rapid Positive Test 04/21/24 12:45 04/21/24 09:35 04/21/24 05:56 04/20/24 20:18 Anti-Nuclear Antibody Screen Negative (Negative) Complement C3 178 mg/dL (82-167) Complement C4 26 mg/dL (12-38) Rapid Plasma Reagin Non reactive (Non Reactive) Urine Color Yellow (Yellow) Urine Clarity Turbid (Clear) Urine pH 5.5 (5.0-9.0) Urine Specific [place] 1.022 (1.001-1.035) Urine Protein 2+ (Negative) Urine Ketones Negative (Negative) Urine Blood 3+ /uL (Negative) Urine Nitrite Negative (Negative) Urine Bilirubin Negative (Negative) Urine Urobilinogen Normal mg/dL (Negative) Urine Leukocyte Esterase Trace /uL (Negative) Urine RBC 2 /hpf (0 - 3) Urine WBC 56 /hpf (0 - 3) Urine Squamous Epithelial Cells Few /hpf (<5) Urine Bacteria Few /hpf (None Seen) Urine Creatinine 318.19 mg/dL (30.0-125.0) Urine Sodium 39 mmol/L (40-220) Urine Glucose 1+ mg/dL (Normal) Urine Total Protein 844.9 mg/dL (1-14) Urine Opiates Screen Neg (NEGATIVE) Urine Fentanyl Screen Neg (NEGATIVE) Urine Barbiturates Screen Neg (NEGATIVE) Urine Phencyclidine Screen Neg (NEGATIVE) Urine Amphetamines Screen Neg (NEGATIVE) Urine Benzodiazepines Screen Neg (NEGATIVE) Urine Cocaine Screen Neg (NEGATIVE) Urine Cannabinoids Screen Neg (NEGATIVE) Vitamin D 25-Hydroxy 21.7 ng/mL (30.0-100) Parathyroid Hormone (Intact) 626.0 pg/mL (18.4-80.1) Hepatitis C Antibody Negative (Negative) Serum Osmolality 295 mOsm/kg (278-298) Acetaminophen Level < 2.0 UG/ML (10.0-20.0) Plasma/Serum Blood Alcohol 3.4 mg/dL (<10) Hepatitis A IgM Antibody Negative Hepatitis A Antibody Total Positive (Negative) Hepatitis B Surface Antibody Positive (Negative) Hepatitis B Core Total Antibody Negative (Negative) Hepatitis B Core IgM Antibody Negative (Negative) Test 04/20/24 19:10 04/20/24 18:33 04/20/24 18:32 04/20/24 18:11 Hemoglobin A1c 5.7 % A1C (<5.7) Prothrombin Time 11.0 sec (9.3-11.8) Prothrombin Time INR 1.04 (0.9-1.15) Activated Partial Thromboplast Time 27.8 SEC (24.5-34.5) SARS-CoV-2 Antigen (Rapid) Negative (NEGATIVE) Lactic Acid Level 1.6 mmol/L (0.4-2.0) Direct Bilirubin 0.2 mg/dL (<0.3) Troponin I High Sensitivity 28 ng/L (</=54) Thyroid Stimulating Hormone (TSH) 1.19 uIU/mL (0.55-4.78) Test 04/20/24 14:02 04/20/24 13:20 Influenza Type A Antigen Negative (Negative) Influenza Type B Antigen Negative (Negative) D-Dimer, Quantitative 2.12 mg/L FEU (0.0-0.49) B-Type Natriuretic Peptide 0.44 pg/mL (0-100) Other Laboratory Tests 04/29/24 05:40 Brief Hx & Hospital Course: This is a 28-year-old obese male patient no relevant past medical history presented to the ER with a chief complaint of generalized weakness, fatigue and body aches for the past 1 week. He reports feeling feverish, productive cough with yellow sputum, body aches and weakness for the past 1 week for which he visited urgent care and was diagnosed with a strep throat and influenza infection. Patient received antibiotics and was taking them for the past couple of days, thinks it was amoxicillin but does not remember for sure. He says that he has been getting weak progressively associated with low appetite and generalized muscle ache for the past couple of days. Also reports abdominal heaviness. He says that his fever productive cough has been resolved. Patient's son was also diagnosed with strep throat infection recently. Patient denies chest pain, shortness of breaths, recent falls or blurry vision, nausea or vomiting, dysuria constipation or diarrhea. Past medical history: Unremarkable Family history:Mom at the age of 49 - had cancer, details unknown. Mother also had CHF.. Social history: Lives with and son, uses cigar occasionally, denies smoking. Drinks socially. 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 During the hospital stay, EKG performed, patient had peaked T-waves NSR. Telemetry reviewed, shows intermittent tachycardia which is sinus and rate up to 150s beats per minute. Given the hyperkalemia, patient received 2 g IV calcium. Nephrology was consulted. Creatinine was 6 at arrival. Trended up to 12. Patient was oliguric, making 10 mL of urine on arrival which was cola colored. Received multiple doses of dextrose with insulin and Lokelma during the hospitalization. Patient was dialyzed starting 04/22 she was performed 04/25. He was tested positive for strep. Patient received IV ceftriaxone starting 04/20 till 04/29. Patient's and urea resolved and he is urinating almost 150 cc of cola colored urine daily. His appetite is improving. He will require outpatient hemodialysis and chair time has been arranged for 04/30 at [facility]. Right IJ tunnel cath was placed 04/26 for dialysis. V/Q scan was completed which showed low probability of PE. Given the hypotension patient was started on amlodipine 10 mg daily which controls his blood pressure. CK was greater than 7800. Renal ultrasound was unremarkable, C3-C4 and RPR unremarkable. Hepatitis panel negative. Patient will also started on calcium acetate 2001 mg PO TID starting 04/21. Preliminary kidney biopsy results showed myoglobin cast with no fibrosis suggestive of rhabdomyolysis. Physical therapy was consulted throughout the stay and patient was ambulating with the help of walker. Underwent hemodialysis on following dates: 04/22, 04/23, 04/25, 04/28, 04/2904/29/2024: Patient is hemodynamically stable, appetite is well, patient is ambulating. He is advised for outpatient nephrology workup within 7 days and recommended to follow up in his appointment with [facility] dialysis [address] [place] [address], phone number [phone], chair time is [id number] at 1300. First session to be tomorrow 04/30/24-patient needs to arrive by 1230pm and bring copy of I.D. and insurance card. He will be discharged to home after his dialysis session. Examination Morbidly obese male patient lying in bed, in no acute distress General: Obese, afebrile, palor, mucosae are moist, sclera injection seen. T ongue has white scrape able lesions. Pharynx is erythematous Cardiovascular: Regular S1 and S2. No murmurs, gallops or rubs. No JVD elevation. 1+ pitting edema in the lower extremities Respiratory: Normal B/L air entry on room air. Clear lung sounds on auscultation Abdomen: Soft, nontender, nondistended, normoactive bowel sounds, no rebound tenderness, no organomegaly, no masses. Left flank renal biopsy site is dry and clean. Genitourinary: 120cc cola colored urine MSK/skin: Mobilizes 4 limbs. Skin is dry and warm Neurological: No motor, no sensitive deficits, normal speech. Pupils are isocoric and reactive. 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/25 SIRS secondary to strep throat/rhabdomyolysis and influenza infection Strep pharyngitis Prolonged QTc secondary to hypocalcemia Anion gap Metabolic acidosis Secondary hyper parathyroidism Vitamin-D deficiency Symptomatic Hypocalcemia and hyperphosphatemia Hyponatremia Elevated AST/ALT due to rhabdomyolysis Hypertension Generalized weakness due to hyperkalemia with EKG changes Ruled out PE/DVT Discharge Disposition: Home Discharge Instruct/Medications Diet: Renal Activity: Light activity Follow Up/Referral: Follow up with the [facility] dialysis [address] [place] [address], phone number [phone], chair time is [id number] at 1300. First session to be tomorrow 04/30/24-patient needs to arrive by 1230pm and bring copy of I.D. and insurance card. Outpatient follow up within hand picker within 7 days Discharge clinic follow up within 7 days Follow up with primary care physician within 7 days Medications: Per EMR Discharge Statement: "Patient was advised to return to the ER or call 911 if any headaches, dizziness, shortness of breath, chest pain, abdominal pain, bleeding, fevers, or worsening of medical condition. Patient was counseled about treatment plan, medications, possible side effects, patientverbalized understanding. All questions were answered to the best of my ability. This discharge took greater then 30 minutes in planning, reviewing documentation, counseling the patient, and discussing with other team members." ASSESSMENT ASSESSMENT Assessment Acute renal failure secondary to rhabdomyolysis and possible PSGN Date of Service: Apr 29, 2024 Billing Provider: ROBERTH PEÑA MD Common Visit Codes: 93017-UOF/OBS DISCH DAY >30min FLORIAN DIAZ Apr 29, 2024 14:14 ROBERTH PEÑA MD May 03, 2024 21:04
[2024-04-29] MEDS ORDERED: ALL100T PO (18:29)
[2024-04-29] MEDS ORDERED: AML5T PO (18:29)
[2024-04-30 01:00] VITALS: BP 130/74; PULSE 90; RESP 18; O2SAT 96
[2024-04-30 06:21] LABS: Calcium 9.1 mg/dL (8.7-10.4); Potassium 4.3 mmol/L (3.5-5.1); Sodium 137 mmol/L (136-145)
[2024-04-30 06:22] LABS: Anion Gap 15 (5-15); Carbon Dioxide 24 mmol/L (20-31)
[2024-04-30 06:27] LABS: BUN/Creatinine Ratio 8.1 (10.0-20.0); Glucose 83 mg/dL (74-106)
[2024-04-30 06:40] LABS: Chloride 98 mmol/L (98-107); Creatine Kinase IFCC 23880 U/L (46-171)
[2024-04-30 06:42] LABS: Blood Urea Nitrogen 90 mg/dL (9-23)
[2024-04-30 07:49] VITALS: BP 151/78; PULSE 91; RESP 16; TEMP 98.2; O2SAT 95
--- NOTE | 2024-04-30 14:23 | DVHPN2 ---
Assessment/Plan Assessment/Plan patient for discharge yesterday, delayed pending HD. patient discharged today stable in the morning to go to HD center Plan discussed with: Other Date of Service: Apr 30, 2024 Billing Provider: ROBERTH PEÑA MD Common Visit Codes: 29016-OPS/OBS DISCH DAY <30MIN ROBERTH PEÑA MD Apr 30, 2024 14:23
== END 2024-04-30 10:30 | disposition home or self-care (01) | DRG 152 ==
LOC: ER 11:55 → TELE 18:26 → TELE-EAST 04-21 02:31 → ICU WEST 04-22 21:30 → TELE-CENTR 04-25 15:09 → CENTRAL 04-30 03:14
PROVIDERS: ADMIT Student in an Organized Health Care Education/Training Program; ATTEND Student in an Organized Health Care Education/Training Program
PROC: 5A09357 Assistance with Respiratory Ventilation, Less than 24 Consecutive Hours, Continuous Positive Airway Pressure (ICD-10-PCS; 2024-04-21)
PROC: 0TB13ZX Excision of Left Kidney, Percutaneous Approach, Diagnostic (ICD-10-PCS; 2024-04-22)
PROC: 5A1D70Z Performance of Urinary Filtration, Intermittent, Less than 6 Hours Per Day (ICD-10-PCS; 2024-04-22)
PROC: 02HV33Z Insertion of Infusion Device into Superior Vena Cava, Percutaneous Approach (ICD-10-PCS; 2024-04-22)
PROC: B548ZZA Ultrasonography of Superior Vena Cava, Guidance (ICD-10-PCS; 2024-04-22)
PROC: 5A1D70Z Performance of Urinary Filtration, Intermittent, Less than 6 Hours Per Day (ICD-10-PCS; 2024-04-23)
PROC: 5A1D70Z Performance of Urinary Filtration, Intermittent, Less than 6 Hours Per Day (ICD-10-PCS; 2024-04-25)
PROC: 0JH63XZ Insertion of Tunneled Vascular Access Device into Chest Subcutaneous Tissue and Fascia, Percutaneous Approach (ICD-10-PCS; principal; 2024-04-26)
PROC: 02H633Z Insertion of Infusion Device into Right Atrium, Percutaneous Approach (ICD-10-PCS; 2024-04-26)
PROC: B548ZZA Ultrasonography of Superior Vena Cava, Guidance (ICD-10-PCS; 2024-04-26)
PROC: B5181ZA Fluoroscopy of Superior Vena Cava using Low Osmolar Contrast, Guidance (ICD-10-PCS; 2024-04-26)
PROC: 5A1D70Z Performance of Urinary Filtration, Intermittent, Less than 6 Hours Per Day (ICD-10-PCS; 2024-04-26)
PROC: 5A1D70Z Performance of Urinary Filtration, Intermittent, Less than 6 Hours Per Day (ICD-10-PCS; 2024-04-28)
DX: J02.0 Streptococcal pharyngitis (principal); J96.01 Acute respiratory failure with hypoxia; N17.0 Acute kidney failure with tubular necrosis; M62.82 Rhabdomyolysis; E87.20 Acidosis, unspecified; R65.10 Systemic inflammatory response syndrome (SIRS) of non-infectious origin without acute organ dysfunction; Z68.45 Body mass index [BMI] 70 or greater, adult; Z20.822 Contact with and (suspected) exposure to COVID-19; E87.5 Hyperkalemia; E83.51 Hypocalcemia; J44.9 Chronic obstructive pulmonary disease, unspecified; E66.9 Obesity, unspecified; G47.33 Obstructive sleep apnea (adult) (pediatric); N28.9 Disorder of kidney and ureter, unspecified; E83.39 Other disorders of phosphorus metabolism; Z82.49 Family history of ischemic heart disease and other diseases of the circulatory system
CPT/HCPCS: 36415; 36556; 36558; 50200; 71045; 76775; 76942; 77001; 78582; 80048; 80053; 80074; 80076; 80307; 80320; 80329; 81001; 82306; 82310; 82550; 82570; 82962; 83036; 83605; 83735; 83880; 83930; 83970; 84100; 84132; 84156; 84300; 84443; 84484; 84550; 85007; 85025; 85027; 85379; 85610; 85730; 86038; 86160; 86592; 86704; 86706; 86708; 86803; 86850; 86900; 86901; 87040; 87081; 87340; 87426; 87804; 87880; 90935; 93005; 93970; 94640; 94660; 96361; 96372; 96374; 96375; 97110; 97116; 97163; 97530; 99152; 99291; G0378; J1642; J1815; J2250; J2405; J3490; P9047

== ENCOUNTER 2025-02-03 05:08 | Emergency (ER) | payer MEDICAID, OTHER ==
[~2025-02-03] VITALS: Ht 185.4 cm; Wt 154.0 kg
[~2025-02-03 05:08] MED LIST: ALL100T PO; AML5T PO
[2025-02-03] MEDS ORDERED: CEPH500C PO (06:34)
[2025-02-03] MEDS ORDERED: IBUP-1456 PO (06:34)
--- NOTE | 2025-02-03 06:37 | ED.PDOC ---
History of Present Illness(SKN HPI Comments A 29 YEAR OLD MALE PRESENTS TO THE ED WITH COMPLAINT OF PAIN AND SWELLING TO THE RIGHT INDEX FINGER THAT STARTED 5 DAYS AGO. PATIENT DENIES ANY RECENT INJURIES OR DRAINAGE. PATIENT DENIES FEVER, CHILLS, SHORTNESS OF BREATH, CHEST PAIN, ABDOMINAL PAIN, NAUSEA, VOMITING, HEADACHE, OR OTHER COMPLAINTS. NO OTHER SYMPTOMS OR MODIFYING FACTORS AT THIS TIME. PATIENT IS ALERT, ORIENTED X 4, AND HAS STEADY GAIT. Chief Complaint: Upper Extremity Time Seen by MD: 06:28 Primary Care Provider: NONE History of Present Illness: Nurses Notes, Medications, Allergies Allergies: Coded Allergies: Codeine (Verified Allergy, Unknown, 04/28/21) Home Meds Active Scripts Ibuprofen (Ibuprofen) 800 Mg Tab, 1 TAB PO TID, #20 TAB Prov:CRISTIAN REED 02/03/25 Cephalexin Monohydrate (Cephalexin) 500 Mg Cap, 1 CAP PO QID, #28 CAP Prov:CRISTIAN REED 02/03/25 Amlodipine Besylate (NORVASC TABLET) 5 Mg Tb, 10 MG PO DAILY for 30 Days, #60 TAB Prov:TEAGAN MONREAL RESIDENT 04/29/24 Allopurinol (ZYLOPRIM TABLET) 100 Mg Tb, 100 MG PO DAILY for 30 Days, #30 TAB Prov:TEAGAN MONREAL RESIDENT 04/29/24 Information Source: Patient Mode of Arrival: Ambulatory Severity: Mild, Moderate Timing: Days (5) Duration: Since onset Location: Hand Object: None Condition of Object: None Wound Type: Other Associated Signs and Symptoms: Swelling, Pain Past Medical History PAST MEDICAL HISTORY: Denies Surgical History: Denies all surgeries Family History Family History: Reviewed,noncontributory to illness Social History Smoker: Non-Smoker Alcohol: Denies ETOH Use Drugs: Denies Drug Use Lives In: Home Constitutional: denies: chills, diaphoresis, fatigue, fever, malaise, sweats, weakness, others EENTM: denies: blurred vision, double vision, ear bleeding, ear discharge, ear drainage, ear pain, ear ringing, eye pain, eye redness, hearing loss, mouth pa in, mouth swelling, nasal discharge, nose bleeding, nose congestion, nose pain, photophobia, tearing, throat pain, throat swelling, voice changes, others Respiratory: denies: cough, hemoptysis, orthopnea, SOB at rest, shortness of breath, SOB with excertion, stridor, wheezing, others Cardiovascular: denies: chest pain, dizzy spells, diaphoresis, Dyspnea on exertion, edema, irregular heart beat, left arm pain, lightheadedness, palpitations, PND, syncope, others Gastrointestinal: denies: abdomen distended, abdominal pain, blood streaked bowels, constipated, diarrhea, dysphagia, difficulty swallowing, hematemesis, melena, nausea, poor appetite, poor fluid intake, rectal bleeding, rectal pain, vomiting, others Genitourinary: denies: burning, dysuria, flank pain, frequency, hematuria, incontinence, penile discharge, penile sore, pain, testicle pain, testicle swelling, urgency, others Neurological: denies: dizziness, fainting, headache, left sided numbness, left sided weakness, numbness, paresthesia, pre-existing deficit, right sided numbness, right sided weakness, seizure, speech problems, tingling, tremors, weakness, others Musculoskeletal: reports: others (RIGHT INDEX FINGER PAIN AND MILD SWELLING. ); denies: back pain, gout, joint pain, joint swelling, muscle pain, muscle stiffness, neck pain Integumetry: reports: others (SWELLING TO THE RIGH TINDEX FINGER ); denies: bruises, change in color, change in hair/nails, dryness, laceration, lesions, tab mps, rash, wounds Allergic/Immunocompromised: denies: Difficulty Healing, Frequent Infections, Hives, Itching, others Hematologic/Lymphatic: denies: anemia, blood clots, easy bleeding, easy bruising, swollen glands, others Endocrine: denies: excessive hunger, excessive sweating, excessive thirst, excessive urination, flushing, intolerance to cold, intolerance to heat, unexplained weight gain, unexplained weight loss, others Psychiatric: denies: anxiety, bipolar disorder, depression, hopeless, panic disorder, schizophrenia, sleepless, suicidal, others All Other Systems: Reviewed and Negative Physical Exam General Appearance: No Apparent Distress, Obese HEENT: Normal ENT Inspection, PERRL/EOMI, Pharynx Normal, TMs Normal Neck: Full Range of Motion, Non-Tender, Normal, Normal Inspection Respiratory: Chest Non-Tender, Lungs Clear, No Accessory Muscle Use, No Respiratory Distress, Normal Breath Sounds Cardiovascular: No Edema, No JVD, No Murmur, No Gallop, Normal Peripheral Pulses, Regular Rate/Rhythm Breast Exam: Deferred Gastrointestinal: No Organomegaly, Non Tender, No Pulsatile Mass, Normal Bowel Sounds, Soft Genitalia: Deferred Pelvic: Deferred Rectal: Deferred Extremities: No calf tenderness, Normal capillary refill, Normal range of motion, No pedal edema, Tender (WITH MILD REDNESS AND SWELLING ON RIGHT INDEX FINGER, +PARONYCHIA. ) Musculoskeletal : Apperance: Normal Neurologic: Alert, trailer mechanic II-XII nml as Tested, No Motor Deficits, Normal Affect, Normal Mood, No Sensory Deficits Cerebellar Function: Normal Reflexes: Normal Skin: Dry, Normal Color, Warm, Other (MILD LOCALIZED REDNESS AND SWE;LLING ON RIGHT INDEX FINGER, NO DRAINAGE, +PARONYCHIA. ) Peripheral Pulses: 2+ carotid (R), 2+ carotid (L), 2+ Radial (R), 2+ Radial (L) Lymphatic: No Adenopathy Was a procedure done? Was a procedure done?: No Differential Diagnosis (INTG) Differential Diagnosis: Puncture Wound, Other (panechyia) Differential Diagnosis: Abscess, Cellulitis, Other (PARONYCHIA OF RIGHT INDEX FINGER. ) X-Ray, Labs, Meds, VS Vital Signs Date Time Temp Pulse Resp B/P (MAP) Pulse Ox O2 Delivery O2 Flow Rate FiO2 02/03/25 05:13 97.3 78 18 137/83 98 97.3 X-Ray, Labs, Meds, VS Comment EXTERNAL MEDICAL RECORDS REVIEWED: [NONE] INDEPENDENT HISTORIANS: [NONE] SOCIAL DETERMINANTS OF HEALTH: [NONE] LABS ORDERED: NONE REVIEWED AND INTERPRETED RESULTS: NONE IMAGING ORDERED: NONE TREATMENTS ORDERED: NONE PROCEDURES PERFORMED: NONE CRITICAL CARE TIME: NONE I HAVE DISCUSSED THE PATIENT WITH THE ATTENDING PHYSICIAN, DR. ROGEL, SHE AGREES WITH THE PATIENT'S PLAN OF CARE AND DISPOSITION. BASED ON HISTORY OF PRESENT ILLNESS, AND PHYSICAL EXAM, PATIENT WILL BE DISCHARGED HOME. DISCUSSED PLAN FOR DISCHARGE HOME WITH IBUPROFEN AND CEPHALEXIN. MEDICATION WARNINGS GIVEN. SHARED DECISION MAKING: DISCUSSED WITH PATIENT THAT THEIR WORKUP WAS NORMAL. PATIENT INSTRUCTED TO FOLLOW UP WITH PRIMARY CARE PROVIDER IN 1-2 DAYS FOR RE- EVALUATION OF SYMPTOMS. PATIENT VERBALIZES UNDERSTANDING TO RETURN TO ED FOR NEW OR WORSENING SYMPTOMS OR IF FOLLOW UP WITH PCP CANNOT BE OBTAINED. PATIENT FEELS COMFORTABLE GOING HOME AT THIS TIME. ALL QUESTIONS ADDRESSED AT TIME OF DISCHARGE. Time of 1ST Reevaluation: 06:41 Reevaluation 1ST: Improved Patient Education/Counseling: Diagnosis, Treatment, Need For Follow Up Family Education/Counseling: Diagnosis, Treatment, No Family Present Medical Screening: No EMC Exist At This Time SEPSIS Sepsis Screen Date sepsis recognized/suspect: Feb 03, 2025 Time Sepsis recognized/suspect: 0519 Recent Procedure: No On Antibiotic Therapy: No Respiratory Rate >20: No Heart Rate >90: No Temp<36 C (96.8 F) or >38.3 C: No SBP <90 or MAP <65 mmHG: No New Acute Mental Status Change: No Is the patient on CPAP, BIPAP,: No Vital Signs Date Time Temp Pulse Resp B/P (MAP) Pulse Ox O2 Delivery O2 Flow Rate FiO2 02/03/25 05:13 97.3 78 18 137/83 98 97.3 Departure 1 Departure Time of Disposition: 06:51 Impression: Primary Impression: Paronychia of right index finger Disposition: HOME / SELF CARE / HOMELESS Condition: Stable Additional Instructions: FOLLOW-UP WITH PCP IN 1 TO 2 DAYS. TAKE MEDICATIONS PRESCRIBED. RETURN TO ED FOR ANY NEW OR WORSENING SYMPTOMS. e-Prescriptions Ibuprofen (Ibuprofen) 800 Mg Tab 1 TAB PO TID, #20 TAB Prov: CRISTIAN REED 02/03/25 Cephalexin Monohydrate (Cephalexin) 500 Mg Cap 1 CAP PO QID, #28 CAP Prov: CRISTIAN REED 02/03/25 Discharged With: Self Critical Care Note Critical Care Time?: No Stability Stability form required: No I personally scribed for CRISTIAN REED ([email or web address]) on 02/03/25 at 06:37. Electronically submitted by Liss Rivera ([facility]). CRISTIAN REED Feb 03, 2025 06:37
[2025-02-03 06:38] VITALS: BP 122/82; PULSE 70; RESP 20; TEMP 98.5; O2SAT 95
[2025-02-03] MEDS ORDERED: ACET-1304 PO (06:48)
== END 2025-02-03 06:49 | disposition home or self-care (01) ==
LOC: ER 05:08
DX: Z79.899 Other long term (current) drug therapy (principal); L03.011 Cellulitis of right finger; Z88.5 Allergy status to narcotic agent

== ENCOUNTER 2025-02-06 10:41 | Emergency (ER) | payer MEDICAID ==
[~2025-02-06] VITALS: Ht 185.4 cm; Wt 153.9 kg
[~2025-02-06 10:41] MED LIST changes: +ACET-1304 PO; +CEPH500C PO
--- NOTE | 2025-02-06 11:57 | ED.PDOC ---
History of Present Illness(SKN HPI Comments 29-year-old male presents to the ER with a chief complaint of a abscess around the finger nail. The patient reports that he came Thursday for the same symptoms and was prescribed cephalexin for which he has been taking with no relief. The patient does have the the ingrown on the nail bed of the right 2nd phalanx. Patient notes on it happening on Thursday of 01/30/2025. The patient is still able to bend his finger and came to the ER today to get his finger drained. Denies any other symptoms at this time. Chief Complaint: Abscess Time Seen by MD: 11:45 Primary Care Provider: NONE History of Present Illness: Nurses Notes, Medications, Allergies Allergies: Coded Allergies: Codeine (Verified Allergy, Unknown, 04/28/21) Home Meds Active Scripts Acetaminophen (Tylenol Extra Strength Fo) 500 Mg Tab, 1000 MG PO BID, #30 TAB Prov:CRISTIAN REED 02/03/25 Cephalexin Monohydrate (Cephalexin) 500 Mg Cap, 1 CAP PO QID, #28 CAP Prov:CRISTIAN REED 02/03/25 Amlodipine Besylate (NORVASC TABLET) 5 Mg Tb, 10 MG PO DAILY for 30 Days, #60 TAB Prov:TEAGAN MONREAL RESIDENT 04/29/24 Allopurinol (ZYLOPRIM TABLET) 100 Mg Tb, 100 MG PO DAILY for 30 Days, #30 TAB Prov:TEAGAN MONREAL RESIDENT 04/29/24 Information Source: Patient Mode of Arrival: Ambulatory Severity: Moderate Timing: Days Duration: Since onset, Days Prehospital treatment: None Location: Other (Finger) Mechanism: Spontaneous Onset Object: None Condition of Object: None Wound Type: None History of: None Associated Signs and Symptoms: Swelling Past Medical History PAST MEDICAL HISTORY: Denies Surgical History: Denies all surgeries Family History Family History: Reviewed,noncontributory to illness, Unknown Social History Smoker: Non-Smoker Alcohol: Denies ETOH Use Drugs: Denies Drug Use Lives In: Home Constitutional: denies: chills, diaphoresis, fatigue, fever, malaise, sweats, weakness, others EENTM: denies: blurred vision, double vision, ear bleeding, ear discharge, ear drainage, ear pain, ear ringing, eye pain, eye redness, hearing loss, mouth pain, mouth swelling, nasal discharge, nose bleeding, nose congestion, nose pain, photophobia, tearing, throat pain, throat swelling, voice changes, others Respiratory: denies: cough, hemoptysis, orthopnea, SOB at rest, shortness of breath, SOB with excertion, stridor, wheezing, others Cardiovascular: denies: chest pain, dizzy spells, diaphoresis, Dyspnea on exertion, edema, irregular heart beat, left arm pain, lightheadedness, palpitations, PND, syncope, others Gastrointestinal: denies: abdomen distended, abdominal pain, blood streaked bowels, constipated, diarrhea, dysphagia, difficulty swallowing, hematemesis, melena, nausea, poor appetite, poor fluid intake, rectal bleeding, rectal pain, vomiting, others Genitourinary: denies: burning, dysuria, flank pain, frequency, hematuria, incontinence, penile discharge, penile sore, pain, testicle pain, testicle swelling, urgency, others Neurological: denies: dizziness, fainting, headache, left sided numbness, left sided weakness, numbness, paresthesia, pre-existing deficit, right sided numbness, right sided weakness, seizure, speech problems, tingling, tremors, weakness, others Musculoskeletal: denies: back pain, gout, joint pain, joint swelling, muscle pain, muscle stiffness, neck pain, others Integumetry: reports: others (Distal 2nd phalanx has an ingrown to the right hand); denies: bruises, change in color, change in hair/nails, dryness, laceration, lesions, lumps, rash, wounds Allergic/Immunocompromised: denies: Difficulty Healing, Frequent Infections, Hives, Itching, others Hematologic/Lymphatic: denies: anemia, blood clots, easy bleeding, easy bruising, swollen glands, others Endocrine: denies: excessive hunger, excessive sweating, excessive thirst, excessive urination, flushing, intolerance to cold, intolerance to heat, unexplained weight gain, unexplained weight loss, others Psychiatric: denies: anxiety, bipolar disorder, depression, hopeless, panic disorder, schizophrenia, sleepless, suicidal, others All Other Systems: Reviewed and Negative Physical Exam Exam Comments Fluctuance erythema to the dorsal aspect of the distal 2nd phalanx, FDS FDP intact, neurovascular sensation is intact General Appearance: No Apparent Distress, Normal HEENT: Normal ENT Inspection, Pharynx Normal, TMs Normal Neck: Full Range of Motion, Non-Tender, Normal, Normal Inspection Respiratory: Chest Non-Tender, Lungs Clear, No Accessory Muscle Use, No Respiratory Distress, Normal Breath Sounds Cardiovascular: No Edema, No JVD, No Murmur, No Gallop, Normal Peripheral Pulses, Regular Rate/Rhythm Breast Exam: Deferred Gastrointestinal: No Organomegaly, Non Tender, No Pulsatile Mass, Normal Bowel Sounds, Soft Genitalia: Deferred Pelvic: Deferred Rectal: Deferred Extremities: No calf tenderness, Normal capillary refill, Normal inspection, Normal range of motion, Non-tender, No pedal edema Musculoskeletal : Apperance: Normal Neurologic: Alert, emergency room clerk II-XII nml as Tested, No Motor Deficits, Normal Affect, Normal Mood, No Sensory Deficits Cerebellar Function: Normal Reflexes: Normal Skin: Dry, Normal Color, Warm Lymphatic: No Adenopathy Was a procedure done? Was a procedure done?: Yes Sedation Sedation?: No Incision and Drainage Incision and Drainage: Abscess Location Distal 2nd phalanx of the right upper extremity Anesthetic: Lidocaine Preparation: Other (Alcohol) Incision and Wound: Pus Informed consent obtained: Yes Risks/benefits/alt described: Yes Differential Diagnosis (INTG) Differential Diagnosis: N/A Differential Diagnosis: Other (Ingrown) Differential Diagnosis: N/A Abscess: N/A Differential Diagnosis: N/A X-Ray, Labs, Meds, VS Vital Signs Date Time Temp Pulse Resp B/P (MAP) Pulse Ox O2 Delivery O2 Flow Rate FiO2 02/06/25 12:09 98.3 94 16 146/99 (115) 100 98.3 02/06/25 12:09 94 17 100 Room Air 02/06/25 10:43 98.0 94 16 151/120 100 98.0 X-Ray, Labs, Meds, VS Comment 29-year-old male presents to the ER with a chief complaint of a ingrown to his nail. Patient arrives alert and oriented, ABC's intact, afebrile, vital signs stable, saturating well in room air Exam findings consistent with paronychia Prescription for topical antibiotic Advised on good hand and foot hygiene Wash hands and feet with soap and dry well Apply warm compresses twice daily as necessary Avoid chewing or trimming cuticles/nails too close to the skin Avoid pulling hang nail ER precautions given if worsening symptoms such as swelling pain discharge or redness spreads Additional MDM Review of External, Non-ED records: External records reviewed. Discussion with independent historian (EMS, family) history obtained from the patient/parents (if applicable) at bedside Chronic conditions affecting care: None Social determinants of health affecting care: None Consideration of admission (observation or admission): I considered escalation of care to admission for this patient, however given the reassuring workup, the patient is safe for outpatient management. Discussion with the Radiology: No Tests considered but not performed: Prescription medication considered but not given: Time of 1ST Reevaluation: 12:15 Reevaluation 1ST: Unchanged Patient Education/Counseling: Diagnosis, Treatment, Prognosis Family Education/Counseling: No Family Present SEPSIS Sepsis Screen Date sepsis recognized/suspect: Feb 06, 2025 Time Sepsis recognized/suspect: 1043 Recent Procedure: No On Antibiotic Therapy: No Respiratory Rate >20: No Heart Rate >90: Yes Temp<36 C (96.8 F) or >38.3 C: No SBP <90 or MAP <65 mmHG: No New Acute Mental Status Change: No Is the patient on CPAP, BIPAP,: No Vital Signs Date Time Temp Pulse Resp B/P (MAP) Pulse Ox O2 Delivery O2 Flow Rate FiO2 02/06/25 12:09 98.3 94 16 146/99 (115) 100 98.3 02/06/25 12:09 94 17 100 Room Air 02/06/25 10:43 98.0 94 16 151/120 100 98.0 Departure 1 Departure Time of Disposition: 12:04 Impression: Primary Impression: Paronychia of right index finger Disposition: 01 HOME / SELF CARE / HOMELESS Condition: Stable Discharged With: Self Critical Care Note Critical Care Time?: No Stability Stability form required: No Heart Score Heart Score: Heart Score Response (Comments) Value History N/A 0 EKG N/A 0 Age N/A 0 Risk Factors N/A 0 Troponin N/A 0 Total 0 I personally scribed for ANAHY BARCENAS NP ([email or web address]) on 02/06/25 at 11:57. Electronically submitted by Mj Schmidt ([email or web address]). ANAHY BARCENAS NP Feb 06, 2025 11:57
[2025-02-06 12:09] VITALS: BP 146/99; PULSE 94; RESP 17; TEMP 98.3; O2SAT 100
== END 2025-02-06 12:11 | disposition home or self-care (01) ==
LOC: ER 10:41
DX: L03.011 Cellulitis of right finger (principal); Z79.899 Other long term (current) drug therapy; Z88.5 Allergy status to narcotic agent
CPT/HCPCS: 10060